=== PATIENT | female | born 1955 | race Caucasian/White ===

== ENCOUNTER 2016-11-18 10:52 | Emergency (ER) | payer MEDICARE ==
--- NOTE | 2016-11-18 11:03 | ER Document Report ---
ED Medical Screen (RME) - General Stated Complaint: DIARRHEA, VOMITING Mode of Arrival: Ambulatory Information source: Patient Notes: Patient presents to the ED with c/o n/v/d, RUQ abdominal pain for one week. 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 Daughter reports she called Dr. Wilson and he told her to come to the emergency department right away. Daughter is a medical researcher and reports she googled the symptoms. She believes patient is in liver failure. Patient does not have a history of liver failure. I have greeted and performed a rapid initial assessment of this patient. A comprehensive ED assessment and evaluation of the patient, analysis of test results and completion of the medical decision making process will be conducted by additional ED providers. TRAVEL OUTSIDE OF THE [place] IN LAST 30 DAYS: No - Related Data Allergies/Adverse Reactions: aspirin [Aspirin] Allergy (Unknown, Verified 03/30/14 12:36) Asthma Past Medical History - Past Medical History Cardiac Medical History: Denies: Hx Heart Attack, Hx Hypertension Pulmonary Medical History: Reports: Hx Asthma, Hx Bronchitis, Hx COPD, Hx Pneumonia Denies: Hx Tuberculosis Musculoskeltal Medical History: Reports Hx Arthritis Past Surgical History: Reports: Hx Cholecystectomy, Hx Hysterectomy, Hx Tonsillectomy - Immunizations Hx Diphtheria, Pertussis, Tetanus Vaccination: Yes Physical Exam - Vital signs Vitals: Temp Pulse Resp BP Pulse Ox 98.5 F 77 18 133/65 H 96 11/18/16 10:57 11/18/16 10:57 11/18/16 10:57 11/18/16 10:57 11/18/16 10:57 Course - Vital Signs Vital signs: Temp Pulse Resp BP Pulse Ox 98.5 F 77 18 133/65 H 96 11/18/16 10:57 11/18/16 10:57 11/18/16 10:57 11/18/16 10:57 11/18/16 10:57
[2016-11-18 11:28] LABS: ABSOLUTE BASOPHILS # (AUTO) 0.1 10^3/uL (0.0-0.2); ABSOLUTE EOSINOPHILS # (AUTO) 0.3 10^3/uL (0.0-0.6); ABSOLUTE LYMPHOCYTES (AUTO) 3.6 10^3/uL (0.5-4.7); ABSOLUTE MONOCYTES (AUTO) 0.9 10^3/uL (0.1-1.4); ABSOLUTE NEUT (AUTO) 9.5 10^3/uL (1.7-8.2); BASOPHILS % (AUTO) 0.6 % (0-2); EOSINOPHILS % (AUTO) 1.9 % (0-6); HEMATOCRIT 43.1 % (36.0-47.0); HEMOGLOBIN 14.2 g/dL (12.0-15.5); HGB HCT DIFFERENCE -0.5; MEAN CORPUSCULAR HEMOGLOBIN 30.1 pg (27.0-33.4); MEAN CORPUSCULAR VOLUME 91 fl (80-97); MONOCYTES % (AUTO) 6.2 % (3-13); RED BLOOD COUNT 4.72 10^6/uL (3.72-5.28); RED CELL DISTRIBUTION WIDTH 14.3 % (11.5-14.0); SEGMENTED NEUTROPHILS % (AUTO) 66.3 % (42-78); WHITE BLOOD COUNT 14.3 10^3/uL (4.0-10.5)
[2016-11-18 11:36] LABS: APPEARANCE,URINE CLEAR; BILIRUBIN,URINE NEGATIVE (NEGATIVE); GLUCOSE, URINE NEGATIVE (NEGATIVE); KETONES,URINE NEGATIVE (NEGATIVE); LEUKOCYTE ESTERASE,URINE NEGATIVE (NEGATIVE); NITRITE,URINE NEGATIVE (NEGATIVE); PROTEIN,URINE NEGATIVE (NEGATIVE); URINE SPECIFIC GRAVITY 1.003; UROBILINOGEN,URINE NEGATIVE mg/dL (<2.0)
[2016-11-18 11:42] LABS: ALANINE AMINOTRANSFERASE 17 U/L (9-52); ALBUMIN 4.2 g/dL (3.5-5.0); ALKALINE PHOSPHATASE 63 U/L (38-126); ANION GAP 13 (5-19); ASPARTATE AMINO TRANSFERASE 16 U/L (14-36); BILIRUBIN,DIRECT 0.3 mg/dL (0.0-0.4); BILIRUBIN,TOTAL 0.5 mg/dL (0.2-1.3); BLOOD UREA NITROGEN 9 mg/dL (7-20); CALCIUM 9.9 mg/dL (8.4-10.2); CARBON DIOXIDE 27 mmol/L (22-30); CHLORIDE 105 mmol/L (98-107); CREATININE RESULT 0.71 mg/dL (0.52-1.25); GLUCOSE 84 mg/dL (75-110); LIPASE 79.3 U/L (23-300); POTASSIUM 4.6 mmol/L (3.6-5.0); SODIUM 144.7 mmol/L (137-145); TOTAL PROTEIN 7.1 g/dL (6.3-8.2)
[2016-11-18] MEDS ORDERED: ONDANSETRON HCL INJ/PF 4 MG/2 ML SDV IV ONE ×2 (12:51→14:04)
[2016-11-18] MEDS ORDERED: NORMAL SALINE 1000 ML 1,000 ML IV ONE ×2 (12:51→13:46)
[2016-11-18] MEDS ORDERED: DICYCLOMINE HCL 20 MG TABLET PO ONE (14:04)
[2016-11-18] MEDS ORDERED: MORPHINE SULFATE 10 MG/ML INJ IV ONE (14:04)
--- NOTE | 2016-11-18 14:09 | ER Document Report ---
ED General - General Chief Complaint: Nausea/Vomiting/Diarrhea Stated Complaint: DIARRHEA, VOMITING Mode of Arrival: Ambulatory TRAVEL OUTSIDE OF THE [place] IN LAST 30 DAYS: No - HPI Patient complains to provider of: nausea vomiting diarrhea Notes: Patient coming in for a three-day history nausea vomiting diarrhea right lower quadrant abdominal pain. Patient states she has a history of having her gallbladder removed. Patient denies any fevers. Denies any recent antibiotics denies recent travel denies any recent camping states that she uses city water home no well water. No other sick contacts. - Related Data Allergies/Adverse Reactions: aspirin [Aspirin] Allergy (Unknown, Verified 11/18/16 11:01) Asthma Past Medical History - General Information source: Patient - Social History Smoking Status: Unknown if Ever Smoked Family History: Reviewed & Not Pertinent Patient has suicidal ideation: No Patient has homicidal ideation: No - Past Medical History Cardiac Medical History: Denies: Hx Heart Attack, Hx Hypertension Pulmonary Medical History: Reports: Hx Asthma, Hx Bronchitis, Hx COPD, Hx Pneumonia Denies: Hx Tuberculosis Renal/ Medical History: Denies: Hx Peritoneal Dialysis Musculoskeltal Medical History: Reports Hx Arthritis Past Surgical History: Reports: Hx Appendectomy, Hx Cholecystectomy, Hx Hysterectomy, Hx Tonsillectomy - Immunizations Hx Diphtheria, Pertussis, Tetanus Vaccination: Yes Hx Pneumococcal Vaccination: 11/25/11 Review of Systems - Review of Systems Constitutional: No symptoms reported EENT: No symptoms reported Cardiovascular: No symptoms reported Respiratory: No symptoms reported Gastrointestinal: Diarrhea, Nausea, Vomiting Genitourinary: No symptoms reported Female Genitourinary: No symptoms reported Musculoskeletal: No symptoms reported Skin: No symptoms reported Hematologic/Lymphatic: No symptoms reported Neurological/Psychological: No symptoms reported Physical Exam - Vital signs Vitals: Temp Pulse Resp BP Pulse Ox 98.5 F 77 18 133/65 H 96 11/18/16 10:57 11/18/16 10:57 11/18/16 10:57 11/18/16 10:57 11/18/16 10:57 Interpretation: Normal - General General appearance: Appears well, Alert - HEENT Head: Normocephalic, Atraumatic Eyes: Normal Pupils: PERRL - Respiratory Respiratory status: No respiratory distress Chest status: Nontender Breath sounds: Normal Chest palpation: Normal - Cardiovascular Rhythm: Regular Heart sounds: Normal auscultation Murmur: No - Abdominal Inspection: Normal Distension: No distension Bowel sounds: Normal Tenderness: Tender - Mild tenderness right lower quadrant no rebound no guarding patient does have a previous cholecystectomy scar. Organomegaly: No organomegaly - Back Back: Normal, Nontender - Extremities General upper extremity: Normal inspection, Nontender, Normal color, Normal ROM , Normal temperature General lower extremity: Normal inspection, Nontender, Normal color, Normal ROM , Normal temperature, Normal weight bearing. No: Gisele's sign - Neurological Neuro grossly intact: Yes Cognition: Normal Orientation: AAOx4 [place] Coma Scale Eye Opening: Spontaneous Yoel Coma Scale Verbal: Oriented [place] Coma Scale Motor: Obeys Commands Yoel Coma Scale Total: 15 Speech: Normal Motor strength normal: LUE, RUE, LLE, RLE Sensory: Normal - Psychological Associated symptoms: Normal affect, Normal mood - Skin Skin Temperature: Warm Skin Moisture: Dry Skin Color: Normal Course - Re-evaluation Re-evalutation: 11/19/16 10:33 Lab work did show leukocytosis our this looks to be chronic when comparing the previous laboratory values. Patient did undergo a CAT scan to evaluate for any signs of colitis diverticulitis. This was negative. Upon performing a CAT scan found patient only had one kidney and no appendix. I did ask the patient patient did confirm that she has a history of nephrectomy and appendectomy. Upon initial evaluation patient only admitted to a cholecystectomy. More likely patient has a viral gastroenteritis. Patient was unable to to provide us with a stool sample here. Patient will be given resources to provide a stool sample for outpatient testing patient was encouraged follow-up with her primary care physician anti-medics and Bentyl were given to the patient patient was discharged home - Vital Signs Vital signs: Temp Pulse Resp BP Pulse Ox 97.6 F 64 14 107/71 97 11/18/16 15:09 11/18/16 15:09 11/18/16 15:09 11/18/16 15:09 11/18/16 15:09 - Laboratory Result Diagrams: 11/18/16 11:15 11/18/16 11:15 Laboratory results interpreted by me: 11/18/16 11:15 WBC 14.3 H RDW 14.3 H Absolute Neutrophils 9.5 H Discharge - Discharge Clinical Impression: Nausea vomiting and diarrhea Condition: Good Disposition: HOME, SELF-CARE Instructions: Gastroenteritis (adult) ([facility]) Additional Instructions: Take medication as prescribed. Please return stool sample to outpatient laboratory testing and follow-up with your primary care physician for these results. Prescriptions: Dicyclomine HCl [Bentyl 20 mg Tablet] 20 mg PO QID #30 tablet Ondansetron [Zofran Odt 4 mg Tablet] 1 - 2 tab PO Q4H PRN #20 tab.rapdis PRN Reason: For Nausea/Vomiting Promethazine HCl [Phenergan 25 mg Tablet] 1 - 2 tab PO Q6H PRN #20 tablet PRN Reason: Forms: Follow-Up Outpatient Testing Referrals: RAMÓN ASHTON MD [Primary Care Provider] - Follow up in 3-5 days
[2016-11-18 15:20] VITALS: BP 107/71
== END 2016-11-18 15:09 | disposition home or self-care (01) ==
LOC: ER 10:52
DX: R11.2 Nausea with vomiting, unspecified (principal); R19.7 Diarrhea, unspecified; R10.31 Right lower quadrant pain; D72.829 Elevated white blood cell count, unspecified; J44.9 Chronic obstructive pulmonary disease, unspecified; Z90.710 Acquired absence of both cervix and uterus; Z88.6 Allergy status to analgesic agent; Z90.49 Acquired absence of other specified parts of digestive tract; Z90.5 Acquired absence of kidney
CPT/HCPCS: 96376; 99284; 96361; 96374; 96375; 36415; 83690; 85025; 80053; 81001; 74177; A9270; J2270; J2405; J7030; J3490

== ENCOUNTER 2019-11-19 21:08 | Emergency (ER) | payer MEDICARE, MEDICAID ==
[2019-11-19 21:15] VITALS: BP 140/93
--- NOTE | 2019-11-19 21:25 | ER Document Report ---
ED Medical Screen (RME) - General Chief Complaint: Foreign Body Stated Complaint: FOREIGN BODY STUCK IN THROAT Primary Care Provider: RAMÓN ASHTON MD [Primary Care Provider] - Follow up as needed Notes: Patient patient is a 64-year-old white female with a past medical history of COPD, CAD and anxiety who is a current everyday smoker who presents to the emergency department with a chief complaint of a fullness in the throat. She states about 4 days ago she was eating a meat ball when she feels like it became lodged in the throat. She states she tried to gargle with water, Pepsi and coffee without any improvement. She states over the past 4 days it feels as though this suspected foreign body is shifting positions in the throat. She states is really starting to bother her, causing a hoarse throat and now giving her a sensation of difficulty breathing. She states she has been unable to take her medicines for 4 days as she can only get liquids down and not solids. She called her doctor who advised that she come to the emergency department for further evaluation. She states today in relation to not being able to take her medicine she started to have some pain in the right arm. She was concerned given her history of CAD so she came for further evaluation. Denies any vomiting or pooling of secretions. No fevers, recent travel or known sick contacts. I have treated and performed a rapid initial assessment of this patient. A comprehensive ED assessment and evaluation of the patient, analysis of test results and completion of medical decision making process will be conducted by additional ED providers. PHYSICAL EXAMINATION: GENERAL: Well-appearing, well-nourished and in no acute distress. A&Ox4. Answers questions appropriately. TRAVEL OUTSIDE OF THE [place] IN LAST 30 DAYS: No - Related Data Allergies/Adverse Reactions: aspirin [Aspirin] Allergy (Unknown, Verified 11/18/16 11:01) Asthma Past Medical History - Past Medical History Cardiac Medical History: Denies: Hx Heart Attack, Hx Hypertension Pulmonary Medical History: Reports: Hx Asthma, Hx Bronchitis, Hx COPD, Hx Pneumonia Denies: Hx Tuberculosis Renal/ Medical History: Denies: Hx Peritoneal Dialysis Musculoskeltal Medical History: Reports Hx Arthritis Past Surgical History: Reports: Hx Appendectomy, Hx Cholecystectomy, Hx Hysterectomy, Hx Tonsillectomy - Immunizations Hx Diphtheria, Pertussis, Tetanus Vaccination: Yes Physical Exam - Vital signs Vitals: Temp Pulse Resp BP Pulse Ox 98.0 F 117 H 26 H 140/93 H 94 11/19/19 21:12 11/19/19 21:12 11/19/19 21:12 11/19/19 21:12 11/19/19 21:12 Course - Vital Signs Vital signs: Temp Pulse Resp BP Pulse Ox 98.0 F 117 H 26 H 140/93 H 94 11/19/19 21:12 11/19/19 21:12 11/19/19 21:12 11/19/19 21:12 11/19/19 21:12 Doctor's Discharge - Discharge Referrals: RAMÓN ASHTON MD [Primary Care Provider] - Follow up as needed
--- NOTE | 2019-11-19 21:56 | RADIOLOGY REPORT (SQ) ---
CLINICAL INDICATION: arm pain, neck fullness. TECHNIQUE: A single portable AP view was obtained of the chest at 2155 hours. COMPARISON: November 25, 2011. FINDINGS: The cardiomediastinal silhouette is normal. The lungs are grossly clear. No evidence of effusion or pneumothorax. Chronic parenchymal lung change. Old granulomatous disease. Scoliosis.. IMPRESSION: No evidence of active intrathoracic disease.
--- NOTE | 2019-11-19 21:59 | RADIOLOGY REPORT (SQ) ---
CLINICAL INDICATION: arm pain, neck fullness, ? food bolus. Sensation of retained foreign body. TECHNIQUE: 2 view(s) were obtained of the neck. COMPARISON: None. FINDINGS: No retained radiopaque foreign body within the soft tissues. Epiglottis appears grossly normal. No evidence of airway compromise. Surrounding soft tissues are unremarkable. IMPRESSION: Unremarkable imaging of the soft tissue neck.
[2019-11-19 22:08] LABS: INTERNATIONAL RATION (INR) 1.03; PROTHROMBIN TIME 13.6 SEC (11.4-15.4)
[2019-11-19 22:10] LABS: ABSOLUTE BASOPHILS # (AUTO) 0.1 10^3/uL (0.0-0.2); ABSOLUTE EOSINOPHILS # (AUTO) 0.1 10^3/uL (0.0-0.6); ABSOLUTE LYMPHOCYTES (AUTO) 3.6 10^3/uL (0.5-4.7); ABSOLUTE MONOCYTES (AUTO) 0.4 10^3/uL (0.1-1.4); BASOPHILS % (AUTO) 0.4 % (0-2); EOSINOPHILS % (AUTO) 0.5 % (0-6); HEMATOCRIT 46.9 % (36.0-47.0); HEMOGLOBIN 15.7 g/dL (12.0-15.5); LYMPHOCYTES % (AUTO) 29.9 % (13-45); MEAN CORPUSCULAR HEMOGLOBIN 30.1 pg (27.0-33.4); MEAN CORPUSCULAR HGB CONC 33.4 g/dL (32.0-36.0); MEAN CORPUSCULAR VOLUME 90 fl (80-97); MONOCYTES % (AUTO) 3.5 % (3-13); PLATELET COUNT 355 10^3/uL (150-450); RED CELL DISTRIBUTION WIDTH 14.5 % (11.5-14.0); SEGMENTED NEUTROPHILS % (AUTO) 65.7 % (42-78); TOTAL CELLS COUNTED % (AUTO) 100 %; WHITE BLOOD COUNT 12.2 10^3/uL (4.0-10.5)
[2019-11-19 22:23] LABS: ALBUMIN 4.6 g/dL (3.5-5.0); ALKALINE PHOSPHATASE 78 U/L (38-126); ANION GAP 12 (5-19); ASPARTATE AMINO TRANSFERASE 23 U/L (14-36); BILIRUBIN,TOTAL 0.8 mg/dL (0.2-1.3); BLOOD UREA NITROGEN 6 mg/dL (7-20); CALCIUM 9.9 mg/dL (8.4-10.2); CARBON DIOXIDE 22 mmol/L (22-30); CHLORIDE 104 mmol/L (98-107); GLUCOSE 112 mg/dL (75-110); POTASSIUM 3.9 mmol/L (3.6-5.0); TOTAL PROTEIN 7.4 g/dL (6.3-8.2)
--- NOTE | 2019-11-19 22:31 | ER Document Report ---
ED General - General Chief Complaint: Difficulty Swallowing Stated Complaint: FOREIGN BODY STUCK IN THROAT Time Seen by Provider: 11/19/19 22:20 Primary Care Provider: RAMÓN ASHTON MD [Primary Care Provider] - Follow up as needed Mode of Arrival: Ambulatory Information source: Patient Notes: 64-year-old female presented to ED for complaint of difficulty swallowing solids for the last 4 days. She states she has been able to drink fluids with no problems. She states she has been drinking Pepsi coffee and water and. She states she has been smoking 1-1/2 to 2 packs a day with no difficulty but she cannot swallow any solids since she ate meatballs 4 days ago. She states she called her doctor who advised her to come to the emergency room. She states due to the fact that she has some history of blood pressure and cholesterol she came into the emergency room to get evaluated. She denies any vomiting or any difficulty swallowing her secretions. She states she has not had any fevers cough or congestion except for the cough due to the something in her throat. When I first examined the patient her pulse was 98 with respirations of 20 no difficulty breathing no difficulty speaking. While she was in triage she had blood work EKG and chest x-ray completed. She also had a soft tissue neck x- ray. There was no acute findings on these test. These were all discussed with patient. Patient has equal filter pulp washer both arms has no palmar drift grossly negative neuro assessment. TRAVEL OUTSIDE OF THE [place] IN LAST 30 DAYS: No - HPI Onset: Other - 4 days ago Onset/Duration: Persistent - Discomfort due to not being able to swallow food she states she had some aching in her right arm no pain in her left arm left jaw or chest. Discomfort was in her throat and right arm Quality of pain: Achy - Right arm, Pressure - Throat Associated symptoms: Nonproductive cough Exacerbated by: Other Relieved by: Denies Similar symptoms previously: No Recently seen / treated by doctor: Yes - Related Data Allergies/Adverse Reactions: aspirin [Aspirin] Allergy (Unknown, Verified 11/18/16 11:01) Asthma Past Medical History - General Information source: Patient - Social History Smoking Status: Current Every Day Smoker Cigarette use (# per day): Yes - 1-1/2 to 2 packs/day Chew tobacco use (# tins/day): No Frequency of alcohol use: Rare Drug Abuse: None Lives with: Family Family History: Reviewed & Not Pertinent Patient has suicidal ideation: No Patient has homicidal ideation: No - Past Medical History Cardiac Medical History: Reports: Hx Hypercholesterolemia, Hx Hypertension Pulmonary Medical History: Reports: Hx Asthma, Hx Bronchitis, Hx COPD, Hx Pneumonia EENT Medical History: Reports: None Neurological Medical History: Reports: None Endocrine Medical History: Reports: None Renal/ Medical History: Reports: None GI Medical History: Reports: Hx Endoscopy Musculoskeletal Medical History: Reports Hx Arthritis - Rheumatoid arthritis, Reports Hx Musculoskeletal Deformity, Reports Hx Musculoskeletal Trauma Skin Medical History: Reports None Psychiatric Medical History: Reports: Hx Anxiety Traumatic Medical History: Reports: Hx Fractures - Right ankle right knee Infectious Medical History: Reports: None Past Surgical History: Reports: Hx Appendectomy, Hx Cholecystectomy, Hx Hysterectomy, Hx Orthopedic Surgery - Left knee replacement, Hx Tonsillectomy - Immunizations Hx Diphtheria, Pertussis, Tetanus Vaccination: Yes Hx Pneumococcal Vaccination: 11/25/11 Review of Systems - Review of Systems Constitutional: No symptoms reported EENT: Difficulty swallowing - Patient states she has difficulty swallowing solids is able to drink liquids with no trouble able to swallow her saliva was no trouble Cardiovascular: No symptoms reported Respiratory: Cough Gastrointestinal: No symptoms reported Genitourinary: No symptoms reported Female Genitourinary: No symptoms reported Musculoskeletal: No symptoms reported Skin: No symptoms reported Hematologic/Lymphatic: No symptoms reported Neurological/Psychological: No symptoms reported -: Yes All other systems reviewed and negative Physical Exam - Vital signs Vitals: Temp Pulse Resp BP Pulse Ox 98.0 F 117 H 26 H 140/93 H 94 11/19/19 21:12 11/19/19 21:12 11/19/19 21:12 11/19/19 21:12 11/19/19 21:12 Interpretation: Hypertensive. No: Tachycardic - 98, Tachypneic - 20 - General General appearance: Appears well, Alert - HEENT Head: Normocephalic, Atraumatic Eyes: Normal Pupils: PERRL - Respiratory Respiratory status: No respiratory distress Chest status: Nontender Breath sounds: Normal Chest palpation: Normal - Cardiovascular Rhythm: Regular Heart sounds: Normal auscultation Murmur: No - Abdominal Inspection: Normal Distension: No distension Bowel sounds: Normal Tenderness: Nontender Organomegaly: No organomegaly - Back Back: Normal, Nontender - Extremities General upper extremity: Normal inspection, Nontender, Normal color, Normal ROM, Normal temperature General lower extremity: Normal inspection, Nontender, Normal color, Normal ROM, Normal temperature, Normal weight bearing. No: Gisele's sign - Neurological Neuro grossly intact: Yes Cognition: Normal Orientation: AAOx4 [place] Coma Scale Eye Opening: Spontaneous [place] Coma Scale Verbal: Oriented Yoel Coma Scale Motor: Obeys Commands Yoel Coma Scale Total: 15 Speech: Normal Motor strength normal: LUE, RUE, LLE, RLE Sensory: Normal - Psychological Associated symptoms: Normal affect, Normal mood - Skin Skin Temperature: Warm Skin Moisture: Dry Skin Color: Normal Course - Re-evaluation Re-evalutation: 11/20/19 00:19 Discharge instructions because she was her difficulty swallowing if she was not go stay tonight she was not go to get vital signs that she was wait instructions and she got up better left the room. - Vital Signs Vital signs: Temp Pulse Resp BP Pulse Ox 98.0 F 98 20 140/93 H 94 11/19/19 21:12 11/19/19 22:20 11/19/19 22:20 11/19/19 21:12 11/19/19 21:12 - Laboratory Result Diagrams: 11/19/19 21:53 11/19/19 21:53 Laboratory results interpreted by me: 11/19/19 11/19/19 21:53 21:53 WBC 12.2 H Hgb 15.7 H RDW 14.5 H BUN 6 L Glucose 112 H - Diagnostic Test Radiology reviewed: Image reviewed, Reports reviewed Discharge - Discharge Clinical Impression: Difficulty swallowing solids Condition: Stable Disposition: HOME, SELF-CARE Additional Instructions: You were seen today for difficulty swallowing solids. You state you have been having difficulty swallowing solids for the last 4 days. You state you have been able to drink liquids with no difficulty. Your chest x-ray lab work and soft tissue neck x-ray are all negative for any acute process. I have given you a copy of your chest x-ray, soft tissue neck x-ray and lab results. Please take these with you to your primary care doctor. Please follow-up with your primary doctor and get a referral to a dye stand loader in the next 24 to 48 hours. FOLLOW-UP CARE: If you have been referred to a physician for follow-up care, call the physicians office for an appointment as you were instructed or within the next two days. If you experience worsening or a significant change in your symptoms, notify the physician immediately or return to the Emergency Department at any time for re-evaluation. Referrals: RAMÓN ASHTON MD [Primary Care Provider] - Follow up as needed
--- NOTE | 2019-11-20 11:22 | EKG REPORT ---
SEVERITY:- ABNORMAL ECG - SINUS TACHYCARDIA CONSIDER RIGHT VENTRICULAR HYPERTROPHY BORDERLINE INFERIOR Q WAVES NONSPECIFIC T ABNORMALITIES, LATERAL LEADS : Confirmed by: Rick Sequeira MD 20-Nov-2019 11:21:52
== END 2019-11-19 23:09 | disposition home or self-care (01) ==
LOC: ER 21:08
DX: R13.10 Dysphagia, unspecified (principal); R05 Cough; M79.601 Pain in right arm; I10 Essential (primary) hypertension; J44.9 Chronic obstructive pulmonary disease, unspecified; F17.210 Nicotine dependence, cigarettes, uncomplicated; Z88.8 Allergy status to other drugs, medicaments and biological substances
CPT/HCPCS: 36415; 70360; 71045; 80053; 84484; 85025; 85610; 85730; 93005; 93010; 99284

== ENCOUNTER 2019-11-22 03:09 | Emergency (ER) | payer MEDICARE, MEDICAID ==
[2019-11-22 03:15] VITALS: BP 113/80
--- NOTE | 2019-11-22 03:44 | ER Document Report ---
HPI - HPI Time Seen by Provider: 11/22/19 03:25 Pain Level: 2 Context: Patient is a 64-year-old female that comes to the emergency department for chief complaint of accidental ingestion. She states that she was coughing into a tissue paper and when she stopped and after the coughing a piece of tissue paper went down the back of her throat. She states she feels like she swallowed it, she denies difficulty breathing, she states that she coughed and gagged and felt like it came back out and is sitting in the back of her throat. She denies any discomfort other than a foreign body sensation. She denies any other symptoms or any other complaints. Patient states she was seen here 4 days ago after she got a meatball stuck in her esophagus and she did manage to cough/gag was out earlier in the day. She states she was doing fine until the reported incident afterwards. - CONSTITUTIONAL Constitutional: DENIES: Fever, Chills - EENT EENT: DENIES: Sore Throat, Ear Pain, Eye problems - NEURO Neurology: DENIES: Headache, Weakness, Vision blurred, Dizzinesss / Vertigo - CARDIOVASCULAR Cardiovascular: DENIES: Chest pain - RESPIRATORY Respiratory: DENIES: Trouble Breathing, Coughing - GASTROINTESTINAL Gastrointestinal: DENIES: Abdominal Pain, Black / Bloody Stools - URINARY Urinary: DENIES: Dysuria, Urgency, Frequency - REPRODUCTIVE Reproductive: DENIES: : - MUSCULOSKELETAL Musculoskeletal: DENIES: Extremity pain Past Medical History - General Information source: Patient - Social History Smoking Status: Former Smoker Frequency of alcohol use: None Drug Abuse: None Lives with: Family Family History: Reviewed & Not Pertinent Patient has suicidal ideation: No Patient has homicidal ideation: No - Past Medical History Cardiac Medical History: Reports: Hx Hypercholesterolemia, Hx Hypertension Denies: Hx Heart Attack Pulmonary Medical History: Reports: Hx Asthma, Hx Bronchitis, Hx COPD, Hx Pneumonia Denies: Hx Tuberculosis Renal/ Medical History: Denies: Hx Peritoneal Dialysis GI Medical History: Reports: Hx Endoscopy Musculoskeletal Medical History: Reports Hx Arthritis - Rheumatoid arthritis, R eports Hx Musculoskeletal Deformity, Reports Hx Musculoskeletal Trauma Psychiatric Medical History: Reports: Hx Anxiety Traumatic Medical History: Reports: Hx Fractures - Right ankle right knee Past Surgical History: Reports: Hx Appendectomy, Hx Cholecystectomy, Hx Hysterectomy, Hx Orthopedic Surgery - Left knee replacement, Hx Tonsillectomy - Immunizations Hx Diphtheria, Pertussis, Tetanus Vaccination: Yes Hx Pneumococcal Vaccination: 11/25/11 Vertical Provider Document - CONSTITUTIONAL General Appearance: WD/WN, No Apparent Distress - Patient speaks slightly anxiously but she does not appear to be in distress - INFECTION CONTROL TRAVEL OUTSIDE OF THE [place] IN LAST 30 DAYS: No - HEENT HEENT: Atraumatic, Normal ENT Exam - Patient has a mallampati score of one, easily viewed posterior pharynx, so clear I can even see the epiglottis. This is clear without any abrasion, bleeding, or abnormality. Poor dentition, otherwise unremarkable ENT exam, Normocephalic - NECK Neck: Normal Inspection - Soft, nontender, supple, no noted swelling - RESPIRATORY Respiratory: Breath Sounds Normal, No Respiratory Distress - Clear lungs, speaks in full sentences, no signs of distress - CARDIOVASCULAR Cardiovascular: Regular Rate, Regular Rhythm - GI/ABDOMEN Gastrointestinal: Abdomen Soft, Abdomen Non-Tender - BACK Back: Normal Inspection - MUSCULOSKELETAL/EXTREMETIES Musculoskeletal/Extremeties: MAEW, FROM, Non-Tender - NEURO Level of Consciousness: Awake, Alert, Appropriate Motor/Sensory: No Motor Deficit, No Sensory Deficit - DERM Integumentary: Warm, Dry, No Rash Course - Re-evaluation Re-evalutation: Patient initially anxious, however after evaluation and discussion she did calm down. Patient has no respiratory symptoms, patient is able to swallow without difficulty including consuming food, she was reassured that this would likely either dissolve or essentially be like fiber. I did discuss concerning symptoms to look out for in case she aspirated this but I do not think she did based on her reported history and her symptoms. She was provided with viscous lidocaine after discussion. Because of her frequent intolerance to solid foods I highly recommended she have a close follow-up endoscopy, she states that she will call her primary care tomorrow to have this set up. Patient stable, asymptomatic, well-appearing at time of discharge. - Vital Signs Vital signs: Temp Pulse Resp BP Pulse Ox 98.0 F 78 20 113/80 95 11/22/19 03:14 11/22/19 03:14 11/22/19 03:14 11/22/19 03:14 11/22/19 03:14 Discharge - Discharge Clinical Impression: Swallowed foreign body Qualifiers: Encounter type: initial encounter Qualified Code(s): T18.9XXA - Foreign body of alimentary tract, part unspecified, initial encounter Condition: Stable Disposition: HOME, SELF-CARE Additional Instructions: The ingested foreign body should dissolve. There are rare cases where this will not and this should simply act as fiber and you should eventually pass this in your bowel movements. You can use a lidocaine if needed for discomfort. Because of your intermittent difficulty swallowing solids I highly recommend that you contact your provider on Saturday and follow-up closely for an endoscopy to be performed. Return for any concerning symptoms including developing fever, difficulty breathing, productive cough, or any other concerning or worsening symptoms. Prescriptions: Lidocaine HCl [Xylocaine 2% Viscous Soln 15 ml Udcup] 15 ml PO TID PRN #1 [id number] PRN Reason: Referrals: RAMÓN ASHTON MD [Primary Care Provider] - 11/23/19
[2019-11-22] MEDS ORDERED: LIDOCAINE 2% VISCOUS SOLN 15 ML UDCUP PO ONE (03:46)
== END 2019-11-22 05:38 | disposition home or self-care (01) ==
LOC: ER 03:09
DX: T18.9XXA Foreign body of alimentary tract, part unspecified, initial encounter (principal); X58.XXXA Exposure to other specified factors, initial encounter; I10 Essential (primary) hypertension; J44.9 Chronic obstructive pulmonary disease, unspecified
CPT/HCPCS: 99283

== ENCOUNTER → 2019-11-24 | Outpatient (CLI) | payer MEDICAID, MEDICARE ==
--- NOTE | 2019-11-24 13:16 | RADIOLOGY REPORT (SQ) ---
EXAM DESCRIPTION: BARIUM SWALLOW ESOPHAGUS IMAGES COMPLETED DATE/TIME: 11/24/2019 12:22 pm REASON FOR STUDY: R13.10 DYSPHAGIA T18.108A UNSP FOREIGN BODY IN ESOPHAGUS CAUSING OTH INJURY T18.10 8A UNSP FOREIGN BODY IN ESOPHAGUS CAUSING OTH INJURY, COMPARISON: Soft tissue neck x-ray 11/19/2019 TECHNIQUE: Under fluoroscopic guidance, patient ingested effervescent granules followed by thick and thin barium. Fluoroscopic spot images and routine radiographic images acquired and stored on PACS. 12 MM BARIUM TABLET GIVEN: Yes. Slight delay in passage of the tablet at the GE junction LIMITATIONS: None. FLUOROSCOPY TIME: FLUORO TIME: 3.2 minutes of fluoroscopy was used. 10 images saved to PACS. FINDINGS: NEUROMUSCULAR COORDINATION OF SWALLOW: Normal. No aspiration. Mild cricopharyngeal hypert rophy. ESOPHAGEAL MOTILITY: Slow and weak primary peristalsis. No esophageal spasm. ESOPHAGEAL MUCOSA: Normal mucosa without masses or ulceration. GASTRO-ESOPHAGEAL JUNCTION: No hiatal hernia. Mild gastroesophageal reflux. There was a 1 minutes d elay in passage of the 12 mm barium tablet at the GE junction. No stricture seen. NON-GI TRACT STRUCTURES: No significant finding. OTHER: No other significant finding. IMPRESSION: 1. ESOPHAGEAL DYSMOTILITY. 2. MILD GASTROESOPHAGEAL REFLUX WITH SLIGHT DELAY IN PASSAGE OF A 12 MM BARIUM TABLET AT THE GE JUNC TION. NO STRICTURES IDENTIFIED. COMMENT: Quality ID [id number]: Final reports for procedures using fluoroscopy that document radiation exp osure indices, or exposure time and number of fluorographic images (if radiation exposure indices are not available) TECHNICAL DOCUMENTATION: JOB ID: [id number] 2010 [employer]- All Rights Reserved Reading location - IP/workstation name: [email or web address] [id number]
== END ==
LOC: RAD 11:58
PROVIDERS: ATTEND Internal Medicine Gastroenterology
DX: T18.108A Unspecified foreign body in esophagus causing other injury, initial encounter (principal); R13.10 Dysphagia, unspecified
CPT/HCPCS: 74220

== ENCOUNTER 2020-05-31 06:14 | Day surgery (SDC) | payer MEDICARE, MEDICAID ==
[~2020-05-31 06:14] MED LIST: ACETAMINOPHEN 325 MG TABLET ONE; ACETAMINOPHEN 325 MG TABLET PO PRN; IBUPROFEN 800 MG in NORMAL SALINE 250 ML IV PRN
[2020-05-31] MEDS ORDERED: MIDAZOLAM 2 MG/2 ML INJ ONE (07:05)
[2020-05-31] MEDS ORDERED: DEXAMETHASONE SOD PHOSPHATE INJ 4 MG/1 ML VIAL ONE (07:05)
[2020-05-31] MEDS ORDERED: LIDOCAINE 2% INJ-PF (20 MG/ML) 10 ML AMPUL ONE (07:05)
[2020-05-31] MEDS ORDERED: ONDANSETRON HCL INJ/PF 4 MG/2 ML SDV ONE (07:05)
[2020-05-31] MEDS ORDERED: HYDROMORPHONE HCL INJ/PF 2 MG/ML AMPULE ONE (07:05)
[2020-05-31] MEDS ORDERED: FENTANYL CITRATE INJ/PF 100 MCG/2 ML AMPUL ONE (07:05)
[2020-05-31] MEDS ORDERED: PROPOFOL INJ 200 MG/20 ML VIAL IV ONE (07:05)
[2020-05-31] MEDS ORDERED: CEFAZOLIN 2 GM/D5W RTU 2 GM/50 ML RTUPB IV ONE (07:19)
[2020-05-31 07:20] LABS: HEMATOCRIT 41.8 % (36.0-47.0); HEMOGLOBIN 14.6 g/dL (12.0-15.5); MEAN CORPUSCULAR HEMOGLOBIN 32.9 pg (27.0-33.4); MEAN CORPUSCULAR HGB CONC 34.9 g/dL (32.0-36.0); MEAN CORPUSCULAR VOLUME 94 fl (80-97); RED BLOOD COUNT 4.44 10^6/uL (3.72-5.28); RED CELL DISTRIBUTION WIDTH 15.3 % (11.5-14.0); WHITE BLOOD COUNT 9.6 10^3/uL (4.0-10.5)
--- NOTE | 2020-05-31 07:26 | RADIOLOGY REPORT (SQ) ---
CHEST X-RAY 1 VIEW on 05/31/2020 at 6:54 AM CLINICAL INDICATION: Cough COMPARISON: 11/19/2019 FINDINGS: Mildly tortuous aorta is noted. There is evidence of calcified granulomatous disease in the chest. The lungs are otherwise clear. Heart is within normal limits for size. Pulmonary vascularity is within normal limits. IMPRESSION: No significant change and no acute disease.
[2020-05-31 07:28] LABS: ANION GAP 10 (5-19); BLOOD UREA NITROGEN 10 mg/dL (7-20); CALCIUM 9.5 mg/dL (8.4-10.2); CARBON DIOXIDE 25 mmol/L (22-30); CHLORIDE 108 mmol/L (98-107); GLUCOSE 113 mg/dL (75-110); POTASSIUM 4.2 mmol/L (3.6-5.0)
[2020-05-31] MEDS ORDERED: BUPIVACAINE HCL 0.25 % INJ/PF (2.5 MG/1 ML) 30 ML VIAL ONE (07:38)
[2020-05-31 07:39] LABS: ABSOLUTE LYMPHOCYTES# (MANUAL) 3.1 10^3/uL (0.5-4.7); ABSOLUTE MONOCYTES # (MANUAL) 0.8 10^3/uL (0.1-1.4); BASOPHILS % (MANUAL) 1 % (0-2); EOSINOPHILS % (MANUAL) 1 % (0-6); LYMPHOCYTES % (MANUAL) 26 % (13-45); MONOCYTES % (MANUAL) 8 % (3-13); SEGMENTED NEUTROPHILS % (MAN) 58 % (42-78); TOTAL CELLS COUNTED 100
[2020-05-31 07:40] LABS: ANISOCYTOSIS SLIGHT
[2020-05-31 07:41] LABS: OVALOCYTES SLIGHT; PLATELET CLUMPS PRESENT; PLATELET COMMENT ADEQUATE; POIKILOCYTOSIS SLIGHT; POLYCHROMASIA SLIGHT
[2020-05-31 07:42] LABS: PLATELET COUNT 335 10^3/uL (150-450)
[2020-05-31] MEDS ORDERED: CEFAZOLIN 2 GM/D5W RTU 2 GM/50 ML RTUPB IV PRN (07:44)
[2020-05-31] MEDS ORDERED: RINGERS SOLUTION,LACTATED 1,000 ML IV PRN (07:46)
[2020-05-31] MEDS ORDERED: LIDOCAINE 0.5% INJ-PF (5 MG/ML) 50 ML SDV SUBCUT PRN (07:46)
[2020-05-31] MEDS ORDERED: MEPERIDINE HCL/PF INJ 25 MG/1 ML DISP.SYRIN IV PRN (08:15)
[2020-05-31] MEDS ORDERED: FENTANYL CITRATE INJ/PF 100 MCG/2 ML AMPUL IV PRN ×3 (08:15)
[2020-05-31] MEDS ORDERED: OXYCODONE-ACETAMINOPHEN 5-325 MG TABLET PO PRN ×2 (08:15)
[2020-05-31] MEDS ORDERED: DIPHENHYDRAMINE HCL 50 MG/ML VIAL IV PRN (08:15)
[2020-05-31] MEDS ORDERED: MORPHINE SULFATE 10 MG/ML INJ IV PRN (08:15)
[2020-05-31] MEDS ORDERED: PROMETHAZINE HCL INJ 25 MG/1 ML VIAL IV PRN ×2 (08:15)
[2020-05-31] MEDS ORDERED: OXYCODONE HCL IR 5 MG TABLET PO PRN (08:33)
--- NOTE | 2020-05-31 08:33 | Discharge Summary ---
Discharge Summary (SDC) - Discharge Final Diagnosis: Suspicious lymphadenopathy Date of Surgery: 05/31/20 Discharge Date: 05/31/20 Condition: Stable Treatment or Instructions: Discharge home. Diet as tolerated. Activity: Nonstrenuous. Follow-up with [facility] in 7 to 10 days. Okay to shower starting on . Resume regular home medications, including home oxycodone dose. Referrals: RAMÓN ASHTON MD [Primary Care Provider] - Discharge Diet: As Tolerated Respiratory Treatments at Home: Deep Breathing/Coughing, Incentive Spirometer Discharge Activity: Balance Activity w/Rest Home Care Assistance: None Needed Report the Following to Your Physician Immediately: Shortness of Breath, Nausea, Vomiting, Fever over 101 Degrees, Unusual Bleeding, Redness
--- NOTE | 2020-05-31 08:37 | Operative Report ---
Nonrecallable Operative Report DATE OF SURGERY: 05/31/20 PREOPERATIVE DIAGNOSIS: Suspicious lymphadenopathy POSTOPERATIVE DIAGNOSIS: Same as above OPERATION: Excisional biopsy of deep left axillary lymph node SURGEON: QAMAR MANTILLA 1ST GASKET SUPERVISOR: RHONDA DAWSON ANESTHESIA: Other - LMA TISSUE REMOVED OR ALTERED: Suspicious left axillary lymph node COMPLICATIONS: None apparent ESTIMATED BLOOD LOSS: Minimal PROCEDURE: Drains/implants: None. Procedure in detail: After informed consent was obtained, the patient was brought to the operating room and laid in the supine position. The area of the left axilla was prepped and draped in a normal sterile fashion. A 3 cm incision was created over the palpable abnormality, within the left axilla. Dissection was carried down through the subcutaneous tissues, into the deep axillary fat. This was done using blunt dissection. The abnormal/suspicious lymph node was easily identified. It was approximately 2-1/2 to 3 cm in diameter. The lymph node was freed from the surrounding tissues. The pedicle was ligated using hemoclips. The lymph node was then removed from the pedicle, passed off the field, and sent to pathology. The subcutaneous tissues were closed using 3-0 Vicryl suture in simple running fashion. The overlying skin was closed using 4- 0 Vicryl Rapide suture in subcuticular fashion. A dressing was placed, and the procedure was concluded. All sponge, instrument, needle counts were correct x2. Condition: Stable. Rhonda Dawson PA-C was scrubbed and present the entirety of the procedure. She assisted with all portions of the procedure including opening of the skin, retraction of the tissues, removal of the lymph node, closure of the subcutaneous tissues, and closure of the skin.
[2020-05-31 13:40] VITALS: BP 113/52
--- NOTE | 2020-05-31 17:37 | EKG REPORT ---
SEVERITY:- BORDERLINE ECG - SINUS RHYTHM BORDERLINE T ABNORMALITIES, ANTERIOR LEADS : Confirmed by: Cherelle Whyte MD 31-May-2020 17:36:22
== END 2020-05-31 10:14 | disposition home or self-care (01) ==
LOC: OROUT 06:14
PROVIDERS: ATTEND Surgery
DX: R59.1 Generalized enlarged lymph nodes (principal); M06.9 Rheumatoid arthritis, unspecified; M81.0 Age-related osteoporosis without current pathological fracture; F41.9 Anxiety disorder, unspecified; I10 Essential (primary) hypertension; I25.118 Atherosclerotic heart disease of native coronary artery with other forms of angina pectoris; Z79.899 Other long term (current) drug therapy; F17.210 Nicotine dependence, cigarettes, uncomplicated; Z03.818 Encounter for observation for suspected exposure to other biological agents ruled out; Z90.5 Acquired absence of kidney
CPT/HCPCS: 36415; 88185 ×15; 88184; 85025; 80048; 88233; 88262; 88305 ×2; 71045; 93005; 93010; 01610; 38525; U0003; A9270; J2250; J1100; J3010; J2405; J7050; J2704; J3490; J0690; J1741; C9803; 1610; 87635; J1170

== ENCOUNTER → 2020-06-28 | Outpatient (CLI) | payer MEDICAID, MEDICARE ==
--- NOTE | 2020-07-01 15:54 | RADIOLOGY REPORT (SQ) ---
EXAM DESCRIPTION: PET CT SKULL/THIGH IMAGES COMPLETED DATE/TIME: 06/28/2020 1:13 pm REASON FOR STUDY: C83.08 SMALL CELL B-CELL LYMPHOMA, LYMPH NODES OF MULTIPLE SITES C83.08 SMALL VIANCA L B-CELL LYMPHOMA, LYMPH NODES OF MULTIPLE S COMPARISON: CT chest dated 04/01/2020, CT abdomen dated 11/18/2016 RADIONUCLIDE AND DOSE: 10.6 mCi F18 FDG The route of agent administration: Intravenous FASTING BLOOD SUGAR: 96 mg/dl CONTRAST TYPE AND DOSE: No CT contrast given. TECHNIQUE: Blood glucose level was verified. Above dose of FDG was injected intravenously. 2-D seg mented attenuation correction images were obtained from the base of the skull to the midthighs. Nonc ontrast CT images were obtained for attenuation correction and fusion with emission images. CT image s were performed without oral or intravenous contrast and are not sensitive for parenchymal lesions. A series of overlapping emission PET images were obtained. Images reviewed and manipulated at [facility] work station by the radiologist. Images stored on PACS. LIMITATIONS: None. FINDINGS: HEAD AND NECK: Areas of abnormal uptake in the neck in the region of the thyroid gland. O n CT images this however appears to represent extra thyroidal tissue most likely small nodes. SUV in these areas range from 4.6 to 7.2. Mild uptake in the gland itself which is nonspecific. CHEST: Bilateral axillary adenopathy. Nodes in the left arm metabolically active with SUVs ranging b etween 3.6 and 4. Nodes on the right show minimal uptake. ABDOMEN AND PELVIS: No areas of abnormal metabolic activity in the abdomen or pelvis. Expected physi ologic activity is present in the genitourinary system and bowel. PROXIMAL LOWER EXTREMITIES: No areas of abnormal metabolic activity in the soft tissues of the lower extremities. BONES: Uptake in the left acromioclavicular joint most likely degenerative. No focal lytic or sclero tic lesions identified on CT images. ADDITIONAL CT FINDINGS: Bulky abdominal adenopathy demonstrating no abnormal metabolic activity. OTHER: No other significant findings. IMPRESSION: Abnormal uptake in the neck and in the left axilla as described. Findings are suspiciou s for neoplasm. There is bulky abdominal adenopathy but no abnormal metabolic activity. TECHNICAL DOCUMENTATION: JOB ID: [id number] 2010 [employer]- All Rights Reserved Reading location - IP[facility]workstation name: [email or web address]
== END ==
LOC: RAD 09:20
PROVIDERS: ATTEND Internal Medicine
DX: C83.08 Small cell B-cell lymphoma, lymph nodes of multiple sites (principal)
CPT/HCPCS: 78815; A9552

== ENCOUNTER → 2020-06-28 | Outpatient (CLI) | payer MEDICARE, OTHER ==
[~2020-06-28] MED LIST changes: -ACETAMINOPHEN 325 MG TABLET ONE; +CEFAZOLIN 2 GM/D5W RTU 2 GM/50 ML RTUPB IV PRN
== END ==
LOC: OD 08:10 → EDSTATUS 07-01 12:30
PROVIDERS: ATTEND Surgery
DX: Z03.818 Encounter for observation for suspected exposure to other biological agents ruled out (principal)
CPT/HCPCS: U0003; C9803; 87635; J1741; J7050

== ENCOUNTER 2020-07-06 08:17 | Outpatient (CLI) | payer MEDICARE, MEDICAID ==
[~2020-07-06 08:17] MED LIST changes: -CEFAZOLIN 2 GM/D5W RTU 2 GM/50 ML RTUPB IV PRN; +DIPHENHYDRAMINE 50 MG/ML VIAL IV PRN; -IBUPROFEN 800 MG in NORMAL SALINE 250 ML IV PRN; +NORMAL SALINE 250 ML @ KVO IV PRN; +NORMAL SALINE IV PRN; +RITUXIMAB IV PRN
[2020-07-06 08:36] VITALS: BP 115/61
--- OUTSIDE RECORDS SUMMARY | 2020-07-07 18:03 | XMS REPORT ---
:1955 [facility] [address] [place] [address] Care Team Providers Name Role Phone Delfina Primary Care Physician Unavailable Yessenia Parish Attending Clinician Unavailable Froy LOPES Attending Clinician Unavailable MD Carl Oleary Attending Clinician Unavailable Padilla LOPES Attending Clinician Unavailable Delfina Attending Clinician Unavailable MD Billie Perez Attending Clinician Unavailable MD Billie Perez Attending Clinician Unavailable MD Dontrell Goff Attending Clinician Unavailable MD Dontrell Goff Attending Clinician Unavailable MD Carl Oleary Admitting Clinician Unavailable MD Billie Perez Admitting Clinician Unavailable MD Dontrell Goff Admitting Clinician Unavailable Allergies, Adverse Reactions, Alerts Allergy Allergy Status Severity Reaction(s) Onset Inactive Treating C omments Name Type Date Date Clinician ASPIRIN Drug Active Unknown Asthma 2019-06 allergy 18 00:00:0 0 Aspirin Aspirin Active TABS TABS Aspirin Allergy Active (Ingredient to Drug (s): (Finding) aluminum aspirin) Adhesive Allergy Active Tape to Drug (Finding) Medications Ordered Filled Start Stop Current Ordering Indication Dosage Frequency Signature Comments Components Medication Medication Date Date Medication? Clinician (SIG) Name Name DiphenhydrA 2019-08 Yes 50mg MINE HCl 09-05 00:00: 00 Rituximab 2019-08 Yes 675mg 09-05 00:00: 00 Sodium 2019-08 Yes 250mL Chloride 09-05 00:00: 00 Tylenol 2019-08 Yes 09-05 00:00: 00 DiphenhydrA 2019-08 No MINE HCl - 00:00: 00 Rituximab 2019-08 No 1- 00:00: 00 Sodium 2019-08 No Chloride -06 00:00: 00 predniSONE 2019- Yes Cayden predniSONE 5 MG Oral 0-28 Goff 5 MG Oral Tablet 00:00: D.O. Tablet 00 TAKE 1 TABLET DIRECTED. Quantity: 90 Refills: 0 Goff D.O., Cayden Start : 0Active Imbruvica 2020-1 2020- No 1 0-27 11-10 00:00: 14:52 00 :34 Metoprolol 2019-0 Yes Metoprolol Tartrate 25 9-30 Tartrate MG Oral 00:00: 25 MG Oral Tablet 00 Tablet TAKE 1/2 TABLET BY MOUTH AT NIGHT. Refills: 0 Start : 0Active Phentermine 2019-0 Yes 1 QD Phentermin HCl - 37.5 8-25 e HCl - MG Oral 00:00: 37.5 MG Capsule 00 Oral Capsule TAKE 1 CAPSULE DAILY Refills: 0 Start : 0Active Metoprolol No Jabier .5 Q0.5D Metoprolol Tartrate 25 4-30 Padilla Tartrate MG Oral 00:00: 25 MG Oral Tablet 00 Tablet TAKE 0.5 TABLET TWICE DAILY Quantity: 90 Refills: 3 Jabier Causey MD Start : 0Active Orencia 250 No Cayden Orencia MG 8-13 Goff 250 MG Intravenous 00:00: D.O. Intravenou Solution 00 s Solution Reconstitut Reconstitu ed tasha INFUSE 750MG INTRAVENOU SLY WEEK 0, WEEK 2, WEEK 4, THEN EVERY 4 WEEKS Quantity: 9 Refills: 3 Cayden Goff D.O. Start : 9Active Calcium 600 0 No Cayden 1 QD Calcium 1500 (600 6-25 Goff 600 1500 Ca) MG Oral 00:00: D.O. (600 Ca) Tablet 00 MG Oral Tablet TAKE 1 TABLET DAILY. Quantity: 90 Refills: 3 Cayden Goff D.O. Start : 9Active Calcium 600 Yes Cayden 1 QD Calcium 1500 (600 6-25 Goff 600 1500 Ca) MG Oral 00:00: D.O. (600 Ca) Tablet 00 MG Oral Tablet TAKE 1 TABLET DAILY. Quantity: 90 Refills: 3 aCyden Goff D.O. Start : 9Active Atorvastati No Jabier Atorvastat n Calcium 1-29 Padilla in Calcium 40 MG Oral 00:00: 40 MG Oral Tablet 00 Tablet Take 1 tablet at bedtime Quantity: 90 Refills: 3 Jabier Causey MD Start : 8Active Nitroglycer Yes Cayden Nitroglyce in 0.3 MG -31 [place] rin 0.3 MG Sublingual 00:00: D.O. Sublingual Tablet 00 Tablet Sublingual Sublingual TAKE DIRECTED. Quantity: 15 Refills: 0 Cayden Goff D.O. Start : 7Active oxyCODONE Yes oxyCODONE HCl - 20 MG 7-13 HCl - 20 Oral Tablet 00:00: MG Oral 00 Tablet Refills: 0 Start : 6Active Xanax 0.5 Yes 1 Q0.3333D Xanax 0.5 MG Oral 7-13 MG Oral Tablet 00:00: Tablet 00 TAKE 1 TABLET 3 TIMES DAILY PRN Quantity: 90 Refills: 0 Start : 6Active Methotrexat No Cayden Methotrexa e 2.5 MG 7- Goff te 2.5 MG Oral Tablet 00:00: D.O. Oral 00 Tablet TAKE 8 TABLETS WEEKLY. Quantity: 48 Refills: 3 Cayden Goff D.O. Start : 6Active Folic Acid Yes Cayden QD Folic Acid 1 MG Oral 7-13 Goff 1 MG Oral Tablet 00:00: D.O. Tablet 00 TAKE 1 TABLET DAILY DIRECTED. Quantity: 90 Refills: 2 Cayden Goff D.O. Start : 6Active Valium 2016- No 1 01-03 00:00: 00:00 00 :00 Cyanocobala 2015- No 1000mg Cyanocobal min 01-03 perera 00:00: 00:00 00 :00 Folic Acid Yes 1 Methotrexat No 8 e Sodium Metoprolol Yes 1 Tartrate Nitrostat Yes 1 Orencia No 250mg fentaNYL Yes 1 Chiara No 1 Allergy ALPRAZolam Yes 1 Humira No Lisinopril No 1 OxyCODONE Yes 1 HCl Phenazopyri No 1 dine HCl Methotrexat 2019- No 8 e Sodium 07-05 14:52 :26 Orencia 2020- No 250mg 07-05 14:51 :57 Chiara 2019- No 1 Allergy 06-21 10:51 :54 Humira 2020- No 06-21 10:51 :59 Lisinopril 2019- No 06-21 10:51 :35 OxyCONTIN 2019- No 06-21 10:51 :07 Phenazopyri dine HCl 06-21 10:52 :06 Cipro 2015- No 12-14 13:20 :18 Methotrexat 2015- No 1 e 12-14 13:20 :06 Percocet 2015- No 12-14 13:20 :46 Problems Condition Condition Condition Status Onset Resolution Last Treatin g Comments Name Details Category Date Date Treatment Clinician Date 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 due to due to 00:00: vitamin vitamin 00 B>12< B>12< deficiency deficiency 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) Full body Full body Problem Active hives hives Cervical Cervical Problem Active disc disc herniation herniation Extra-artic Extra-artic Problem Active ular ular rheumatoid rheumatoid process process Anxiety Anxiety Problem Active with with somatic somatic features features Stable Stable Problem Active angina angina Obesity Obesity Problem Active Mild Mild Problem Active vitamin D vitamin D deficiency deficiency Rheumatoid Rheumatoid Problem Active nodules nodules Anxious Anxious Problem Active depression depression Abnormal Abnormal Problem Active urine urine findings findings Nicotine Nicotine Problem Active dependence dependence CAD CAD Problem Active (coronary (coronary artery artery disease) disease) Dyspnea Dyspnea Problem Active H/O H/O Problem Active nicotine nicotine dependence dependence Knee Knee Problem Active arthropathy arthropathy Rheumatoid Rheumatoid Problem Active arthritis arthritis involving involving both hands both hands with with positive positive rheumatoid rheumatoid factor factor Low vitamin Low vitamin Problem Active D level D level COPD, COPD, Problem Active moderate moderate Chronic Chronic Problem Active fatigue fatigue Age-related Age-related Problem Active osteoporosi osteoporosi s without s without current current pathologica pathologica l fracture l fracture Wrist Wrist Problem Active arthritis arthritis Prolonged Prolonged Problem Active grief grief reaction reaction Multiple Multiple Problem Active lung lung nodules on nodules on CT CT Procedures Procedure Date / Time Performed Performing Clinician Devistar chauhan EKG 2020-05-25 00:00:00 CT - Chest without Contrast 2020-03-24 00:00:00 CBC 2020-03-21 00:00:00 CMP(Complete Metabolic Panel) 2020-03-21 00:00:00 CRP 2020-03-21 00:00:00 Sed Rate 2020-03-21 00:00:00 Urinalysis 2020-03-21 00:00:00 CT - Chest with and without IV 2020-03-21 00:00:00 contrast Established patient office or other 2019-10-15 13:10:00 outpatient, visit typically 25 minutes NC 2019-04-17 08:46:00 COLLJ RAMÓN BLD VNPNXR 2018-11-19 16:05:00 OFFICE OUTPT EST15 MIN 2018-11-19 16:05:00 OFFICE OUTPT EST15 MIN 2018-06-18 11:57:00 OFFICE OUTPT EST15 MIN 2018-04-04 10:00:00 OFFICE OUTPT EST 25 MIN 2017-12-26 14:02:00 OFFICE OUTPT EST15 MIN 2017-11-28 14:56:00 OFFICE OUTPT EST 25 MIN 2017-09-09 10:07:00 OFFICE OUTPT EST15 MIN 2017-06-20 09:53:00 OFFICE OUTPT EST 25 MIN 2017-05-01 11:24:00 HGB GLYCOSYLATED 2017-05-01 11:24:00 OFFICE OUTPT EST 10 MIN 2017-04-04 13:12:00 OFFICE OUTPT EST15 MIN 2017 12:24:00 COLLJ RAMÓN BLD VNPNXR 2017 12:24:00 OFFICE OUTPT EST15 MIN 2017-01-17 12:13:00 COLLJ RAMÓN BLD VNPNXR 2017-01-17 12:13:00 OFFICE OUTPT EST 25 MIN 2016-10-30 15:48:00 COLLJ RAMÓN BLD VNPNXR 2016-10-30 15:48:00 cholecystectomy 1991-08-26 00:00:00 hysterectomy 1981-08-26 00:00:00 tonsillectomy 1972-08-26 00:00:00 Left knee Replacement appendectomy History of Total Abdominal Hysterectomy With Removal Of Both Ovaries History of Cholecystectomy History of Cystoscopy With Pyeloscopy With Manipulation Of Calculus History of Nephrectomy Left History of Direct Laryngoscopy With Stripping Of Vocal Cords History of Appendectomy History of Cardiac catheterization Results Test Description Test Time Test Comments Text Results Atomic Results Result Comments Creatinine 2020-07-05 13:58:00 Test Item Value Reference Range Comments Creatinine (test code = Creatinine) 0.6400 mg/dL 0.5700-1.000 0 Cr Clearance (Est) (test code = Cr Clearance 112.4300 75. 0000-115.0000 (Est)) Glucose (test code = Glucose) 130.0000 mg/dL 65.0000-99.0000 BUN (test code = BUN) 8.0000 mg/dL 8.0000-27.0000 eGFR Gwc-Nazghrr-Wpxmcxge (test code = eGFR 95.0000 Fcz-Dggybjq-Qlzqaqjt) eGFR -Malawian (test code = eGFR 109.0000 -Malawian) BUN/Creat Ratio (test code = BUN/Creat Ratio) 13.0000 12 .0000-28.0000 Sodium (test code = Sodium) 138.0000 mmol/L 134.0000-144.0000 Potassium (test code = Potassium) 4.6000 mmol/L 3.5000-5.2000 Chloride (test code = Chloride) 99.0000 mmol/L 96.0000-106.0000 CO2 (test code = CO2) 22.0000 mmol/L 20.0000-29.0000 Calcium (test code = Calcium) 9.0000 mg/dL 8.7000-10.3000 Protein, Total (test code = Protein, Total) 6.1000 g/dL 6.00 00-8.5000 Albumin (test code = Albumin) 4.0000 g/dL 3.8000-4.8000 Globulin (test code = Globulin) 2.1000 g/dL 1.5000-4.5000 A/G Ratio (test code = A/G Ratio) 1.9000 1.2000-2.2000 Bilirubin, Total (test code = Bilirubin, Total) 0.3000 mg/dL 0.0000-1.2000 Alkaline Phosphatase (test code = Alkaline 81.0000 39.00 00-117.0000 Phosphatase) AST (SGOT) (test code = AST (SGOT)) 14.0000 0.0000-40.00 00 ALT (SGPT) (test code = ALT (SGPT)) 10.0000 0.0000-32.00 00 Hepatitis B Surface [id number] 13:58:00 Test Item Value Reference Range Comments Hepatitis B Surface Ag (test code = Hepatitis B Negative Surface Ag) Hepatitis A Ab, IgM (test code = Hepatitis A Ab, Negative IgM) Hepatitis B Core Ab, IgM (test code = Hepatitis B Negative Core Ab, IgM) Hepatitis C Virus Ab (test code = Hepatitis C Virus 0.1000 0.0000-0.9000 Ab) [id number] 12:45:00 Test Item Value Reference Range Comments WBC (test code = WBC) 9.7000 4.0000-10.0000 Lymphocytes % (test code = Lymphocytes %) 20.0000 % 22.400 0-43.6000 MID% (test code = MID%) 4.5000 % 1.2000-11.2000 Neutrophils % (test code = Neutrophils %) 75.5000 % 48.900 0-69.9000 Lymphocytes (test code = Lymphocytes) 1.9000 1.2000-3.2 000 MID (test code = MID) 0.5000 0.1000-1.1000 Neutrophils (test code = Neutrophils) 7.3000 1.5000-6.7 000 RBC (test code = RBC) 4.4100 3.7000-4.9000 HGB (test code = HGB) 13.9000 g/dL 11.2000-18.0000 HCT (test code = HCT) 41.9000 % 34.0000-44.0000 MCV (test code = MCV) 94.9000 fL 80.0000-94.0000 MCH (test code = MCH) 31.5000 pg 27.0000-34.0000 MCHC (test code = MCHC) 33.1000 g/dL 31.5000-36.0000 RDW (test code = RDW) 16.0000 11.0000-18.0000 PLT (test code = PLT) 322.0000 140.0000-440.0000 MPV (test code = MPV) 8.2000 fL 6.8000-10.6000 Leukemia/Lymphoma [id number] 14:36:00 Test Item Value Reference Range Comments Leukemia/Lymphoma Interp Comment CD5+, CD23+ clonal (test code = B-cell population, CLL/SLL Leukemia/Lymphoma Interp) phenotype, CD38 positive (75%), <5000/uL,. 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 A CD5+, CD23+, kappa+ clonal B-cell population was reported in a left axillary lymph node Assessment of Leukocytes (test Comment A CD5+, CD23+ code = Assessment of Leukocytes) monoclonal B cell population is detected with kappa light chain restriction representing 10% of the leukocytes. CD38 is expressed on 75% of the clonal B-cells. There is no loss of, or aberrant expression of, the ramirez T cell antige Immunophenotypic Profile (test Comment Abnormal cell code = Immunophenotypic Profile) population: present-10% of total cells (Phenotype below) Analysis and Gating Strategy Comment 8 color analysis (test code = Analysis and Gating with CD45/SSC gating Strategy) Phenotype Chart (test code = Comment CD2 (-) CD3 (-) CD4 Phenotype Chart) (-) CD5 (+) CD7 (-) CD8 (-) CD10 (-) CD11b (-) CD11c (+) CD13 (-) CD14 (-) CD15 (-) CD16 Resulting Path Name (test code = Comment Yanet Mk, Resulting Path Name) Tomi Clinical [id number] 14:36:00 Test Item Value Reference Range Comments Clinical Information (test Comment Small cell B-cell code = Clinical Information) lymphoma, anemia Accompanying CBC dated 06/21/20 shows: WBC 7.9, Janiya 4.8, Lym 2.7, Mon 0.4 Specimen Type (test code = Comment Peripheral blood Specimen Type) Viability (test code = Comment 85% Viability) Comment (test code = Comment Each antibody in this Comment) assay was utilized to assess for potential abnormalities of studied cell populations or to characterize identified abnormalities. This test was developed and its performance characteristics determined by [employer]. It has [id number] 14:36:00 Test Item Value Reference Range Comments Creatinine (test code = Creatinine) 0.6300 mg/dL 0.5700-1.000 0 Cr Clearance (Est) (test code = Cr 110.4700 75.0000-115.0 000 Clearance (Est)) Glucose (test code = Glucose) 100.0000 mg/dL 65.0000-99.0000 BUN (test code = BUN) 8.0000 mg/dL 8.0000-27.0000 eGFR Wzh-Xgxghvz-Lvpnwucq (test code = 95.0000 eGFR Zsy-Xdzghgq-Fhuxmhie) eGFR -Malawian (test code = eGFR 110.0000 -Malawian) BUN/Creat Ratio (test code = BUN/Creat 13.0000 12.0000-2 8.0000 Ratio) Sodium (test code = Sodium) 141.0000 mmol/L 134.0000-144.0000 Potassium (test code = Potassium) 4.4000 mmol/L 3.5000-5.2000 Chloride (test code = Chloride) 104.0000 mmol/L 96.0000-106.0000 CO2 (test code = CO2) 22.0000 mmol/L 20.0000-29.0000 Calcium (test code = Calcium) 9.3000 mg/dL 8.7000-10.3000 Protein, Total (test code = Protein, 6.2000 g/dL 6.0000-8.50 00 Total) Albumin (test code = Albumin) 3.9000 g/dL 3.8000-4.8000 Globulin (test code = Globulin) 2.3000 g/dL 1.5000-4.5000 A/G Ratio (test code = A/G Ratio) 1.7000 1.2000-2.2000 Bilirubin, Total (test code = Bilirubin, 0.4000 mg/dL 0.0000- 1.2000 Total) Alkaline Phosphatase (test code = 72.0000 39.0000-117.00 00 Alkaline Phosphatase) AST (SGOT) (test code = AST (SGOT)) 20.0000 0.0000-40.00 00 ALT (SGPT) (test code = ALT (SGPT)) 13.0000 0.0000-32.00 00 Iron, Total (test code = Iron, Total) 71.0000 27.0000-13 9.0000 TIBC (test code = TIBC) 276.0000 250.0000-450.0000 UIBC (test code = UIBC) 205.0000 118.0000-369.0000 % Iron Saturation (test code = % Iron 26.0000 % 15.0000-55 .0000 Saturation) Vitamin B12 (test code = Vitamin B12) 347.0000 pg/mL 232.0000-1 245.0000 Folate (test code = Folate) 20.0000 ng/mL LDH, Total (test code = LDH, Total) 170.0000 119.0000-226 .0000 Ferritin (test code = Ferritin) 60.0000 ng/mL 15.0000-150.0000 [id number] 10:32:00 Test Item Value Reference Range Comments WBC (test code = WBC) 7.9000 4.0000-10.0000 Lymphocytes % (test code = Lymphocytes %) 34.3000 % 22.400 0-43.6000 MID% (test code = MID%) 4.9000 % 1.2000-11 Neutrophils % (test code = Neutrophils %) 60.8000 % 48.900 0-69.9000 Lymphocytes (test code = Lymphocytes) 2.7000 1.2000-3.2 000 MID (test code = MID) 0.4000 0.1000-1.1000 Neutrophils (test code = Neutrophils) 4.8000 1.5000-6.7 000 RBC (test code = RBC) 4.2900 3.7000-4.9000 HGB (test code = HGB) 13.7000 g/dL 11.2000-18.0000 HCT (test code = HCT) 39.9000 % 34.0000-44.0000 MCV (test code = MCV) 93.1000 fL 80.0000-94.0000 MCH (test code = MCH) 32.1000 pg 27.0000-34.0000 MCHC (test code = MCHC) 34.4000 g/dL 31.5000-36.0000 RDW (test code = RDW) 11.0000-18.0000 PLT (test code = PLT) 292.0000 140.0000-440.0000 MPV (test code = MPV) 7.7000 fL 6.8000-10.6000 [id number] 10:32:00 Test Item Value Reference Range Comments RDW (test code = RDW) 11.0000-18.0000 Neutrophils % (test code = Neutrophils %) 60.8000 % 48.900 0-69.9000 HCT (test code = HCT) 39.9000 % 34.0000-44.0000 Lymphocytes % (test code = Lymphocytes %) 34.3000 % 22.400 0-43.6000 MID% (test code = MID%) 4.9000 % .1999-11.2000 MCH (test code = MCH) 32.1000 pg 27.0000-34.0000 MPV (test code = MPV) 7.7000 fL 6.8000-10.6000 MCV (test code = MCV) 93.1000 fL 80.0000-94.0000 MCHC (test code = MCHC) 34.4000 g/dL 31.5000-36.0000 HGB (test code = HGB) 13.7000 g/dL 11.2000-18.0000 Lymphocytes (test code = Lymphocytes) 2.7000 1.2000-3.2 000 MID (test code = MID) 0.4000 0.1000-1.1000 PLT (test code = PLT) 292.0000 140.0000-440.0000 WBC (test code = WBC) 7.9000 4.0000-10.0000 Neutrophils (test code = Neutrophils) 4.8000 1.5000-6.7 000 RBC (test code = RBC) 4.2900 3.7000-4.9000 CT - Chest without [id number] 13:30:00An image is avaliable in i[employer], click link to view [id number] 12:02:00 Test Item Value Reference Range Comments White Blood Cell (test code = White Blood Cell) 9.8 K/uL 3.5-11.1 Red Blood Cell (test code = Red Blood Cell) 4.80 {M/uL} 3.69 -4.87 Hemoglobin (test code = Hemoglobin) 14.8 g/dL 11.4-14.4 Hematocrit (test code = Hematocrit) 45 % 33-41 Mean Corpuscular Volume (test code = Mean 93.8 fL 79.0-9 5.0 Corpuscular Volume) Mean Corpuscular Hemoglobin (test code = Mean 30.8 pg/mL 27 .0-33.0 Corpuscular Hemoglobin) Mean Corpuscular Hemoglobin Concentration (test 32.9 g/dL 33.5-35.5 code = Mean Corpuscular Hemoglobin Concentration) Red Cell Distribution Width (test code = Red 13.9 % 12. 0-15.0 Cell Distribution Width) Platelet (test code = Platelet) 289 K/uL 130-353 Mean Platelet Volume (test code = Mean Platelet 9.5 fL 7.5-10.7 Volume) Neutrophil Count, absolute (test code = 5.4 K/uL 1.9-7.2 Neutrophil Count, absolute) Neutrophil Count Percentage (test code = 55.2 % 43.0-72 .0 Neutrophil Count Percentage) Lymphocyte Count, absolute (test code = 3.8 K/uL 1.1-2.7 Lymphocyte Count, absolute) Lymphocyte Count Percentage (test code = 39.2 % 17.0-44 .0 Lymphocyte Count Percentage) Monocyte Count, absolute (test code = Monocyte 0.3 K/uL 0 .3-0.8 Count, absolute) Monocyte Count Percentage (test code = Monocyte 3.1 % 4.5-12.4 Count Percentage) Eosinophil Count, absolute (test code = 0.1 K/uL 0.0-0.5 Eosinophil Count, absolute) Eosinophil Count Percentage (test code = 1.2 % 0.7-7.8 Eosinophil Count Percentage) Basophil Count, absolute (test code = Basophil 0.1 K/uL 0 .0-0.1 Count, absolute) Basophil Count Percentage (test code = Basophil 0.7 % 0.2-1.1 Count Percentage) Nucleated Red Blood Cell, absolute (test code = 0.00 K/uL 0.00-0.00 Nucleated Red Blood Cell, absolute) Nucleated Red Blood Cell, percentage (test code 0.00 % 0.00-0.00 = Nucleated Red Blood Cell, percentage) Sed [id number] 12:02:00 Test Item Value Reference Range Comments Erythrocyte Sedimentation Rate (test code = 10 {mm/hr} 0-30 Erythrocyte Sedimentation Rate) [id number] 12:02:00 Test Item Value Reference Range Comments Urine Color (test code = Urine LT. YELLOW Yellow Color) Urine Clarity (test code = CLEAR Clear Urine Clarity) Urine Glucose (test code = NEGATIVE Negative Urine Glucose) Urine Ketones (test code = NEGATIVE Negative Urine Ketones) Urine Bilirubin (test code = SMALL Negative Cata ble to perform Ictotest Urine Bilirubin) due to reagent unavailable from manufacture r. Urine Specific [place] (test 1.030 1.010-1.030 code = Urine Specific [place]) Urine Blood (test code = Urine NEGATIVE Negative Blood) Urine pH (test code = Urine 5.5 5.0-8.0 pH) Urine Protein (test code = NEGATIVE Negative Urine Protein) Urine Urobilinogen (test code 0.2 Eu/dl 0.2 = Urine Urobilinogen) Urine Nitrites (test code = NEGATIVE Negative Urine Nitrites) Urine Leukocytes (test code = NEGATIVE Negative Urine Leukocytes) CMP(Complete Metabolic Panel)2020-03-21 12:02:00 Test Item Value Reference Range Comments Glucose (test code = Glucose) 91 mg/dL 74-106 Sodium (test code = Sodium) 142 mmol/L 135-145 Potassium (test code = Potassium) 4.9 mmol/L 3.5-5.3 Chloride (test code = Chloride) 108 mmol/L 98-107 CO2 (test code = CO2) 28 mmol/L 22-30 Creatinine, serum (test code = Creatinine, serum) 0.70 mg/dL 0.10-1.04 Glomerular Filtration Rate (test code = >60 >60 Glomerular Filtration Rate) Glomerular Filtration Rate AA (test code = >60 >60 Glomerular Filtration Rate AA) Blood Urea Nitrogen (test code = Blood Urea 16 mg/dL 7-17 Nitrogen) Calcium (test code = Calcium) 10.3 mg/dL 8.4-10.5 Phosphorus (test code = Phosphorus) 4.5 mg/dL 2.5-4.5 Total Protein (test code = Total Protein) 6.9 g/dL 6.3-8. 2 Albumin (test code = 59578-0) 4.2 g/dL 3.5-5.0 Total Bilirubin (test code = Total Bilirubin) 0.4 mg/dL 0. 2-1.3 Bilirubin, unconj (test code = Bilirubin, unconj) 0.3 mg/dL 0.0-1.1 Bilirubin, Direct (test code = Bilirubin, Direct) 0.1 mg/dL 0.0-0.4 Alkaline Phosphatase (test code = Alkaline 72 U/L 20-15 0 Phosphatase) Alanine Transaminase (test code = Alanine 9 U/L 0-35 Transaminase) Aspartate Aminotransferase (test code = Aspartate 15 U/L 3-36 Aminotransferase) [id number] 12:02:00 Test Item Value Reference Range Comments C-Reactive Protein (test code = C-Reactive Protein) <5 <10 Less than linearityCreatine Kinase,Total,Serum ([id number] 10:10:00 Test Item Value Reference Range Comments Creatine Kinase,Total,Serum (test code = 2283) 35.000 U/L 2 4-204 CBC ([id number]) [id number] 10:10:00 Test Item Value Reference Range Comments Baso (Absolute) (test code = 2346) 0.100 x10E3/uL 0.0-0.2 Basos (test code = 2347) 1.000 % 0-3 Immature Granulocytes (test code = 2355) 0.000 % 0-2 Hematocrit (test code = 2350) 42.700 % 36.0-50.0 RDW (test code = 2368) 13.900 % 11.7-15.0 Eos (test code = 2348) 1.000 % 0-7 Platelets (test code = 2366) 221.000 x10E3/uL 140-415 Lymphs (Absolute) (test code = 2357) 3.100 x10E3/uL 0.7-4.5 MCV (test code = 2360) 93.000 fL 80-98 Immature Grans (Abs) (test code = 2354) 0.000 x10E3/uL 0.0-0.1 Eos (Absolute) (test code = 2349) 0.100 x10E3/uL 0.0-0.4 Lymphs (test code = 2356) 30.000 % 14-46 WBC (test code = 2369) 10.200 x10E3/uL 4.0-10.5 RBC (test code = 2367) 4.580 x10E6/uL 4.10-5.60 MCH (test code = 2358) 30.100 pg 27.0-34.0 Neutrophils (Absolute) (test code = 2364) 6.500 x10E3/uL 1.8-7. 8 Monocytes(Absolute) (test code = 2362) 0.400 x10E3/uL 0.1-1.0 Neutrophils (test code = 2363) 64.000 % 40-74 MCHC (test code = 2359) 32.300 g/dL 32.0-36.0 Monocytes (test code = 2361) 4.000 % 4-13 Hemoglobin (test code = 2352) 13.800 g/dL 12.5-17.0 [id number] 10:10:00 Test Item Value Reference Range Comments TSH (test code = 2280) 2.470 uIU/mL 0.450-4.500 Lipid [id number] 10:10:00 Test Item Value Reference Range Comments HDL Cholesterol (test code = 2501) 37.000 mg/dL >39 VLDL Cholesterol Dre (test code = 2504) 22.000 mg/dL 5-40 LDL Cholesterol Calc (test code = 2502) 34.000 mg/dL 0-99 Cholesterol, Total (test code = 2500) 93.000 mg/dL 100-199 Triglycerides (test code = 2503) 110.000 mg/dL 0-149 CMP14 ([id number]) [id number] 10:10:00 Test Item Value Reference Range Comments Albumin, Serum (test code 4.200 g/dL 3.5-5.5 Plea se note reference = 2320) interval change\X000d\\ X0A\ Egfr If Africn Am (test 100.000 mL/min/1.73 >59 code = 3068) AST (SGOT) (test code = 16.000 IU/L 0-40 2323) Chloride, Serum (test 106.000 mmol/L 97-108 code = 2329) Sodium, Serum (test code 146.000 mmol/L 135-145 = 2337) Bilirubin, Total (test 0.500 mg/dL 0.0-1.2 code = 2324) A/G Ratio (test code = 2.200 1.1-2.5 2319) Potassium, Serum (test 4.300 mmol/L 3.5-5.2 code = 2335) eGFR If NonAfricn Am 86.000 mL/min/1.73 >59 (test code = 2332) Protein, Total, Serum 6.100 g/dL 6.0-8.5 (test code = 2336) BUN (test code = 2325) 6.000 mg/dL 6-20 ALT (SGPT) (test code = 7.000 IU/L 0-55 2322) BUN/Creatinine Ratio 8.000 8-19 (test code = 2326) Alkaline Phosphatase, S 82.000 IU/L 25-150 (test code = 2321) Carbon Dioxide, Total 23.000 mmol/L 20-32 (test code = 2328) Globulin, Total (test 1.900 g/dL 1.5-4.5 code = 2333) Glucose, Serum (test code 99.000 mg/dL 65-99 = 2334) Calcium, Serum (test code 9.200 mg/dL 8.7-10.2 = 2327) Creatinine, Serum (test 0.740 mg/dL 0.76-1.27 code = 2330) Creatine Kinase,Total,Serum ([id number])2019-04-09 10:26:00 Test Item Value Reference Range Comments Creatine Kinase,Total,Serum (test code = 2283) 108.000 U/L 2 4-204 Lipid [id number] 10:26:00 Test Item Value Reference Range Comments LDL Cholesterol Calc (test code = 2502) 48.000 mg/dL 0-99 HDL Cholesterol (test code = 2501) 39.000 mg/dL >39 VLDL Cholesterol Dre (test code = 2504) 20.000 mg/dL 5-40 Cholesterol, Total (test code = 2500) 107.000 mg/dL 100-199 Triglycerides (test code = 2503) 100.000 mg/dL 0-149 CBC ([id number]) [id number] 10:26:00 Test Item Value Reference Range Comments Monocytes (test code = 2361) 4.000 % 4-13 Baso (Absolute) (test code = 2346) 0.000 x10E3/uL 0.0-0.2 Lymphs (test code = 2356) 29.000 % 14-46 MCHC (test code = 2359) 33.500 g/dL 32.0-36.0 Eos (Absolute) (test code = 2349) 0.100 x10E3/uL 0.0-0.4 Basos (test code = 2347) 0.000 % 0-3 Immature Granulocytes (test code = 2355) 0.000 % 0-2 RBC (test code = 2367) 4.790 x10E6/uL 4.10-5.60 Monocytes(Absolute) (test code = 2362) 0.500 x10E3/uL 0.1-1.0 RDW (test code = 2368) 14.100 % 11.7-15.0 MCV (test code = 2360) 92.000 fL 80-98 Hemoglobin (test code = 2352) 14.800 g/dL 12.5-17.0 WBC (test code = 2369) 13.300 x10E3/uL 4.0-10.5 Platelets (test code = 2366) 267.000 x10E3/uL 140-415 Immature Grans (Abs) (test code = 2354) 0.000 x10E3/uL 0.0-0.1 Lymphs (Absolute) (test code = 2357) 3.900 x10E3/uL 0.7-4.5 Neutrophils (test code = 2363) 66.000 % 40-74 Hematocrit (test code = 2350) 44.200 % 36.0-50.0 Neutrophils (Absolute) (test code = 2364) 8.900 x10E3/uL 1.8-7. 8 MCH (test code = 2358) 30.900 pg 27.0-34.0 Eos (test code = 2348) 1.000 % 0-7 CMP14 ([id number]) [id number] 10:26:00 Test Item Value Reference Range Comments Chloride, Serum (test code = 2329) 104.000 mmol/L 97-108 Glucose, Serum (test code = 2334) 99.000 mg/dL 65-99 Creatinine, Serum (test code = 2330) 0.750 mg/dL 0.76-1.27 AST (SGOT) (test code = 2323) 14.000 IU/L 0-40 A/G Ratio (test code = 2319) 1.800 1.1-2.5 Protein, Total, Serum (test code = 2336) 7.000 g/dL 6.0-8.5 BUN (test code = 2325) 8.000 mg/dL 6-20 Alkaline Phosphatase, S (test code = 85.000 IU/L 25-150 2321) Calcium, Serum (test code = 2327) 9.500 mg/dL 8.7-10.2 Carbon Dioxide, Total (test code = 2328) 21.000 mmol/L 20-32 Sodium, Serum (test code = 2337) 140.000 mmol/L 135-145 ALT (SGPT) (test code = 2322) 9.000 IU/L 0-55 Bilirubin, Total (test code = 2324) 0.900 mg/dL 0.0-1.2 Albumin, Serum (test code = 2320) 4.500 g/dL 3.5-5.5 eGFR If NonAfricn Am (test code = 2332) 85.000 mL/min/1.73 >59 Globulin, Total (test code = 2333) 2.500 g/dL 1.5-4.5 Potassium, Serum (test code = 2335) 4.200 mmol/L 3.5-5.2 BUN/Creatinine Ratio (test code = 2326) 11.000 8-19 Egfr If Africn Am (test code = 3068) 98.000 mL/min/1.73 >59 Creatine Kinase,Total,Serum ([id number])2018-09-26 11:13:00 Test Item Value Reference Range Comments Creatine Kinase,Total,Serum (test code = 2283) 109.000 U/L 2 4-204 CBC ([id number]) [id number] 11:13:00 Test Item Value Reference Range Comments Platelets (test code = 2366) 292.000 x10E3/uL 140-415 Baso (Absolute) (test code = 2346) 0.000 x10E3/uL 0.0-0.2 Lymphs (Absolute) (test code = 2357) 2.100 x10E3/uL 0.7-4.5 Basos (test code = 2347) 0.000 % 0-3 RBC (test code = 2367) 4.540 x10E6/uL 4.10-5.60 Monocytes (test code = 2361) 10.000 % 4-13 Immature Grans (Abs) (test code = 2354) 0.100 x10E3/uL 0.0-0.1 Lymphs (test code = 2356) 21.000 % 14-46 Neutrophils (test code = 2363) 67.000 % 40-74 MCHC (test code = 2359) 33.700 g/dL 32.0-36.0 RDW (test code = 2368) 14.700 % 11.7-15.0 Eos (Absolute) (test code = 2349) 0.100 x10E3/uL 0.0-0.4 Hematocrit (test code = 2350) 41.900 % 36.0-50.0 Monocytes(Absolute) (test code = 2362) 1.000 x10E3/uL 0.1-1.0 MCH (test code = 2358) 31.100 pg 27.0-34.0 MCV (test code = 2360) 92.000 fL 80-98 Hemoglobin (test code = 2352) 14.100 g/dL 12.5-17.0 Immature Granulocytes (test code = 2355) 1.000 % 0-2 Eos (test code = 2348) 1.000 % 0-7 Neutrophils (Absolute) (test code = 2364) 6.600 x10E3/uL 1.8-7. 8 WBC (test code = 2369) 9.800 x10E3/uL 4.0-10.5 CMP14 ([id number]) [id number] 11:13:00 Test Item Value Reference Range Comments Potassium, Serum (test code = 2335) 4.400 mmol/L 3.5-5.2 BUN (test code = 2325) 6.000 mg/dL 6-20 eGFR If NonAfricn Am (test code = 2332) 74.000 mL/min/1.73 >59 Albumin, Serum (test code = 2320) 4.400 g/dL 3.5-5.5 AST (SGOT) (test code = 2323) 19.000 IU/L 0-40 Sodium, Serum (test code = 2337) 139.000 mmol/L 135-145 BUN/Creatinine Ratio (test code = 2326) 7.000 8-19 Carbon Dioxide, Total (test code = 2328) 20.000 mmol/L 20-32 Glucose, Serum (test code = 2334) 87.000 mg/dL 65-99 Alkaline Phosphatase, S (test code = 67.000 IU/L 25-150 2321) ALT (SGPT) (test code = 2322) 14.000 IU/L 0-55 Creatinine, Serum (test code = 2330) 0.850 mg/dL 0.76-1.27 A/G Ratio (test code = 2319) 1.800 1.1-2.5 Egfr If Africn Am (test code = 3068) 85.000 mL/min/1.73 >59 Bilirubin, Total (test code = 2324) 0.800 mg/dL 0.0-1.2 Protein, Total, Serum (test code = 2336) 6.800 g/dL 6.0-8.5 Calcium, Serum (test code = 2327) 9.400 mg/dL 8.7-10.2 Chloride, Serum (test code = 2329) 100.000 mmol/L 97-108 Globulin, Total (test code = 2333) 2.400 g/dL 1.5-4.5 Lipid [id number] 11:13:00 Test Item Value Reference Range Comments Cholesterol, Total (test code = 2500) 100.000 mg/dL 100-199 LDL Cholesterol Calc (test code = 2502) 49.000 mg/dL 0-99 VLDL Cholesterol Dre (test code = 2504) 15.000 mg/dL 5-40 HDL Cholesterol (test code = 2501) 36.000 mg/dL >39 Triglycerides (test code = 2503) 74.000 mg/dL 0-149 CMP14 ([id number]) [id number] 09:30:00 Test Item Value Reference Range Comments eGFR If NonAfricn Am (test code = 2332) 88.000 mL/min/1.73 >59 Alkaline Phosphatase, S (test code = 79.000 IU/L 25-150 2321) ALT (SGPT) (test code = 2322) 8.000 IU/L 0-55 Sodium, Serum (test code = 2337) 146.000 mmol/L 135-145 Calcium, Serum (test code = 2327) 9.700 mg/dL 8.7-10.2 BUN/Creatinine Ratio (test code = 2326) 23.000 8-19 Protein, Total, Serum (test code = 2336) 6.500 g/dL 6.0-8.5 Glucose, Serum (test code = 2334) 88.000 mg/dL 65-99 Globulin, Total (test code = 2333) 2.200 g/dL 1.5-4.5 AST (SGOT) (test code = 2323) 11.000 IU/L 0-40 Potassium, Serum (test code = 2335) 5.000 mmol/L 3.5-5.2 Creatinine, Serum (test code = 2330) 0.740 mg/dL 0.76-1.27 A/G Ratio (test code = 2319) 2.000 1.1-2.5 BUN (test code = 2325) 17.000 mg/dL 6-20 Chloride, Serum (test code = 2329) 107.000 mmol/L 97-108 Carbon Dioxide, Total (test code = 2328) 25.000 mmol/L 20-32 Albumin, Serum (test code = 2320) 4.300 g/dL 3.5-5.5 Egfr If Africn Am (test code = 3068) 101.000 mL/min/1.73 >59 Creatine Kinase,Total,Serum ([id number])2017-04-05 09:30:00 Test Item Value Reference Range Comments Creatine Kinase,Total,Serum (test code = 2283) 47.000 U/L 2 4-204 CBC ([id number]) [id number] 09:30:00 Test Item Value Reference Range Comments Eos (test code = 2348) 2.000 % 0-7 Basos (test code = 2347) 0.000 % 0-3 RBC (test code = 2367) 4.560 x10E6/uL 4.10-5.60 Platelets (test code = 2366) 316.000 x10E3/uL 140-415 Lymphs (test code = 2356) 29.000 % 14-46 Eos (Absolute) (test code = 2349) 0.200 x10E3/uL 0.0-0.4 Monocytes (test code = 2361) 7.000 % 4-13 Immature Grans (Abs) (test code = 2354) 0.000 x10E3/uL 0.0-0.1 Monocytes(Absolute) (test code = 2362) 0.800 x10E3/uL 0.1-1.0 Lymphs (Absolute) (test code = 2357) 3.300 x10E3/uL 0.7-4.5 Hematocrit (test code = 2350) 41.400 % 36.0-50.0 WBC (test code = 2369) 11.200 x10E3/uL 4.0-10.5 Hemoglobin (test code = 2352) 13.300 g/dL 12.5-17.0 MCV (test code = 2360) 91.000 fL 80-98 Immature Granulocytes (test code = 2355) 0.000 % 0-2 MCH (test code = 2358) 29.200 pg 27.0-34.0 RDW (test code = 2368) 14.800 % 11.7-15.0 MCHC (test code = 2359) 32.100 g/dL 32.0-36.0 Neutrophils (Absolute) (test code = 2364) 6.800 x10E3/uL 1.8-7. 8 Neutrophils (test code = 2363) 62.000 % 40-74 Baso (Absolute) (test code = 2346) 0.000 x10E3/uL 0.0-0.2 Creatine Kinase,Total,Serum ([id number])2017-02-06 10:22:00 Test Item Value Reference Range Comments Creatine Kinase,Total,Serum (test code = 2283) 46.000 U/L 2 4-204 Lipid [id number] 11:06:00 Test Item Value Reference Range Comments Triglycerides (test code = 2503) 108.000 mg/dL 0-149 Cholesterol, Total (test code = 2500) 127.000 mg/dL 100-199 HDL Cholesterol (test code = 2501) 40.000 mg/dL >39 VLDL Cholesterol Dre (test code = 2504) 22.000 mg/dL 5-40 LDL Cholesterol Calc (test code = 2502) 65.000 mg/dL 0-99 Creatine Kinase,Total,Serum ([id number])2016-12-07 11:06:00 Test Item Value Reference Range Comments Creatine Kinase,Total,Serum (test code = 2283) 56.000 U/L 2 4-204 Creatine Kinase,Total,Serum ([id number])2016-10-10 09:46:00 Test Item Value Reference Range Comments Creatine Kinase,Total,Serum (test code = 2283) 58.000 U/L 2 4-204 CBC ([id number]) [id number] 09:46:00 Test Item Value Reference Range Comments Baso (Absolute) (test code = 2346) 0.100 x10E3/uL 0.0-0.2 Eos (test code = 2348) 2.000 % 0-7 RBC (test code = 2367) 4.480 x10E6/uL 4.10-5.60 MCHC (test code = 2359) 32.900 g/dL 32.0-36.0 Basos (test code = 2347) 1.000 % 0-3 Lymphs (Absolute) (test code = 2357) 3.500 x10E3/uL 0.7-4.5 MCH (test code = 2358) 30.600 pg 27.0-34.0 Immature Granulocytes (test code = 2355) 0.000 % 0-2 WBC (test code = 2369) 10.200 x10E3/uL 4.0-10.5 Immature Grans (Abs) (test code = 2354) 0.000 x10E3/uL 0.0-0.1 Hematocrit (test code = 2350) 41.700 % 36.0-50.0 RDW (test code = 2368) 14.800 % 11.7-15.0 Neutrophils (Absolute) (test code = 2364) 6.100 x10E3/uL 1.8-7. 8 MCV (test code = 2360) 93.000 fL 80-98 Platelets (test code = 2366) 295.000 x10E3/uL 140-415 Monocytes(Absolute) (test code = 2362) 0.400 x10E3/uL 0.1-1.0 Neutrophils (test code = 2363) 58.000 % 40-74 Monocytes (test code = 2361) 4.000 % 4-13 Lymphs (test code = 2356) 35.000 % 14-46 Hemoglobin (test code = 2352) 13.700 g/dL 12.5-17.0 Eos (Absolute) (test code = 2349) 0.200 x10E3/uL 0.0-0.4 Lipid [id number] 09:46:00 Test Item Value Reference Range Comments HDL Cholesterol (test code = 2501) 55.000 mg/dL >39 VLDL Cholesterol Dre (test code = 2504) 19.000 mg/dL 5-40 LDL Cholesterol Calc (test code = 2502) 117.000 mg/dL 0-99 Triglycerides (test code = 2503) 95.000 mg/dL 0-149 Cholesterol, Total (test code = 2500) 191.000 mg/dL 100-199 CMP14 ([id number]) [id number] 09:46:00 Test Item Value Reference Range Comments Chloride, Serum (test 105.000 mmol/L 97-108 code = 2329) AST (SGOT) (test code = 20.000 IU/L 0-40 2323) Potassium, Serum (test 4.800 mmol/L 3.5-5.2 code = 2335) Calcium, Serum (test code 9.200 mg/dL 8.7-10.2 = 2327) Protein, Total, Serum 6.400 g/dL 6.0-8.5 (test code = 2336) Creatinine, Serum (test 0.730 mg/dL 0.76-1.27 code = 2330) Alkaline Phosphatase, S 66.000 IU/L 25-150 (test code = 2321) Globulin, Total (test 2.100 g/dL 1.5-4.5 code = 2333) Albumin, Serum (test code 4.300 g/dL 3.5-5.5 = 2320) BUN (test code = 2325) 9.000 mg/dL 6-20 Sodium, Serum (test code 142.000 mmol/L 135-145 = 2337) Egfr If Africn Am (test 104.000 mL/min/1.73 >59 code = 3068) ALT (SGPT) (test code = 21.000 IU/L 0-55 2322) BUN/Creatinine Ratio 12.000 8-19 (test code = 2326) Bilirubin, Total (test 0.200 mg/dL 0.0-1.2 code = 2324) Glucose, Serum (test code 88.000 mg/dL 65-99 = 2334) Carbon Dioxide, Total 21.000 mmol/L 20-32 (test code = 2328) A/G Ratio (test code = 2.000 1.1-2.5 Effecti ve November 05, 2318) 2016 the referen ce interval\X000d \\X0A\ for A/G Ratio will b e changing to:\X000d\\X0A\ Age Male Female\X000d\\X0 A\ 0 - 7 days 1.1 - 2.3 1.1 - 2.3\X000d\\X0A\ 8 - 30 days 1.2 - 2.8 1.2 - 2.8\X000d\\X0A\ 1 - 6 months 1.3 - 3.6 1.3 - 3.6\X000d\\X0A\ 7 months - 5 year s 1.5 - 2.6 1.5 - 2.6\X000d\\X0A\ > 5 years 1.2 - 2.2 1.2 - 2.2\X000d\\X0A\ eGFR If NonAfricn Am 90.000 mL/min/1.73 >59 (test code = 2332) [id number] 10:25:00 Test Item Value Reference Range Comments RBC (test code = RBC) 4.5600 3.7000-4.9000 WBC (test code = WBC) 11.8000 4.0000-10.0000 MID (test code = MID) 0.7000 0.1000-1.1000 Neutrophils (test code = Neutrophils) 8.1000 1.5000-6.7 000 PLT (test code = PLT) 262.0000 140.0000-440.0000 Lymphocytes (test code = Lymphocytes) 3.0000 1.2000-3.2 000 HGB (test code = HGB) 13.9000 g/dL 11.1999-14.4000 MCHC (test code = MCHC) 33.8000 g/dL 31.5000-36.0000 MCV (test code = MCV) 90.0000 fL 80.0000-94.0000 MPV (test code = MPV) 8.1000 fL 6.8000-10.6000 MCH (test code = MCH) 30.4000 pg 27.0000-34.0000 Neutrophils % (test code = Neutrophils %) 68.2000 % 48.900 0-69.9000 Lymphocytes % (test code = Lymphocytes %) 25.6000 % 22.400 0-43.6000 MID% (test code = MID%) 6.1999 % .1999-11.1999 HCT (test code = HCT) 41.1000 % 34.0000-44.0000 RDW (test code = RDW) 11.0000-18.0000 [id number] 10:25:00 Test Item Value Reference Range Comments WBC (test code = WBC) 11.8000 4.0000-10.0000 Lymphocytes % (test code = Lymphocytes %) 25.6000 % 22.400 0-43.6000 MID% (test code = MID%) 6.2000 % .1999-11.1999 Neutrophils % (test code = Neutrophils %) 68.2000 % 48.900 0-69.9000 Lymphocytes (test code = Lymphocytes) 3.0000 1.2000-3.2 000 MID (test code = MID) 0.7000 0.1000-1.1000 Neutrophils (test code = Neutrophils) 8.1000 1.5000-6.7 000 RBC (test code = RBC) 4.5600 3.7000-4.9000 HGB (test code = HGB) 13.9000 g/dL 11.1999-14.4000 HCT (test code = HCT) 41.1000 % 34.0000-44.0000 MCV (test code = MCV) 90.0000 fL 80.0000-94.0000 MCH (test code = MCH) 30.4000 pg 27.0000-34.0000 MCHC (test code = MCHC) 33.8000 g/dL 31.5000-36.0000 RDW (test code = RDW) 11.0000-18.0000 PLT (test code = PLT) 262.0000 140.0000-440.0000 MPV (test code = MPV) 8.1000 fL 6.8000-10.6000 [id number] 08:11:00 Test Item Value Reference Range Comments RDW (test code = RDW) 14.1000 11.0000-18.0000 HCT (test code = HCT) 43.3000 % 34.0000-44.0000 Neutrophils % (test code = Neutrophils %) 60.5000 % 48.900 0-69.9000 MID% (test code = MID%) 6.0000 % .1999- Lymphocytes % (test code = Lymphocytes %) 33.5000 % 22.400 0-43.6000 MCH (test code = MCH) 28.8000 pg 27.0000-34.0000 MCV (test code = MCV) 88.2000 fL 80.0000-94.0000 MPV (test code = MPV) 7.4000 fL 6.8000-10.6000 MCHC (test code = MCHC) 32.6000 g/dL 31.5000-36.0000 HGB (test code = HGB) 14.1000 g/dL 11.2000-14.4000 Lymphocytes (test code = Lymphocytes) 3.7000 1.2000-3.2 000 MID (test code = MID) 0.7000 0.1000-1.1000 Neutrophils (test code = Neutrophils) 6.7000 1.5000-6.7 000 PLT (test code = PLT) 272.0000 140.0000-440.0000 WBC (test code = WBC) 11.1000 4.0000-10.0000 RBC (test code = RBC) 4.9000 3.7000-4.9000 [id number] 08:11:00 Test Item Value Reference Range Comments WBC (test code = WBC) 11.1000 4.0000-10.0000 Lymphocytes % (test code = Lymphocytes %) 33.5000 % 22.400 0-43.6000 MID% (test code = MID%) 6.0000 % - Neutrophils % (test code = Neutrophils %) 60.5000 % 48.900 0-69.9000 Lymphocytes (test code = Lymphocytes) 3.7000 1.2000-3.2 000 MID (test code = MID) 0.7000 0.1000-1.1000 Neutrophils (test code = Neutrophils) 6.7000 1.5000-6.7 000 RBC (test code = RBC) 4.9000 3.7000-4.9000 HGB (test code = HGB) 14.1000 g/dL 11.2000-14.4000 HCT (test code = HCT) 43.3000 % 34.0000-44.0000 MCV (test code = MCV) 88.2000 fL 80.0000-94.0000 MCH (test code = MCH) 28.8000 pg 27.0000-34.0000 MCHC (test code = MCHC) 32.6000 g/dL 31.5000-36.0000 RDW (test code = RDW) 14.1000 11.0000-18.0000 PLT (test code = PLT) 272.0000 140.0000-440.0000 MPV (test code = MPV) 7.4000 fL 6.8000-10.6000 Iron, [id number] 13:46:00 Test Item Value Reference Range Comments Iron, Total (test code = Iron, Total) 73.0000 27.0000-15 9.0000 TIBC (test code = TIBC) 285.0000 250.0000-450.0000 UIBC (test code = UIBC) 212.0000 131.0000-425.0000 Protein, Total (test code = Protein, Total) 7.0000 g/dL 6.00 00-8.5000 Albumin (test code = Albumin) 3.7000 g/dL 3.2000-5.6000 Globulin (test code = Globulin) 3.3000 g/dL 2.0000-4.5000 % Iron Saturation (test code = % Iron 26.0000 % 15.0000-55 .0000 Saturation) Vitamin B12 (test code = Vitamin B12) 267.0000 pg/mL 211.0000-9 46.0000 Ferritin (test code = Ferritin) 106.0000 ng/mL 15.0000-150.0000 Folate (test code = Folate) 7.4000 ng/mL A/G Ratio (test code = A/G Ratio) 1.2000 0.7000-2.0000 Alpha-1 [id number] 13:46:00 Test Item Value Reference Range Comments Alpha-1 Globulin (test code 0.2000 g/dL 0.1000-0.4000 = Alpha-1 Globulin) Alpha-2 Globulin (test code 1.0000 g/dL 0.4000-1.2000 = Alpha-2 Globulin) Beta Globulin (test code = 1.0000 g/dL 0.6000-1.3000 Beta Globulin) Gamma Globulin (test code = 1.2000 g/dL 0.5000-1.6000 Gamma Globulin) M-Nixon (test code = 0.6000 g/dL 0.0000-0.0000 M-Nixon) IGA (test code = IGA) 103.0000 mg/dL 87.0000-352.0000 IGG (test code = IGG) 766.0000 mg/dL 700.0810-5737.0000 IGM (test code = IGM) 627.0000 mg/dL 26.0000-217.0000 Lambda Free Light Chain 15.3600 mg/L 5.7100-26.3000 (test code = Lambda Free Light Chain) [place] Free Light Chain (test 92.6200 mg/L 3.3000-19.4000 code = [place] Free Light Chain) Immunofixation Interp, Serum Comment Immunofixation shows (test code = Immunofixation IgM monoclonal protein with Interp, Serum) kappa light chain specificity PE Note (test code = PE Comment Protein Note) electrophoresis scan will follow via computer, mail, or truck packer delivery [place]/Lambda Free Ratio 6.0300 0.2600-1.6500 (test code = [place]/Lambda Free Ratio) Gamma [id number] 13:46:00 Test Item Value Reference Range Comments Gamma Globulin (test code = 1.2000 g/dL 0.5000-1.6000 Gamma Globulin) IGA (test code = IGA) 103.0000 mg/dL 87.0000-352.0000 IGG (test code = IGG) 766.0000 mg/dL 700.4356-3397.0000 IGM (test code = IGM) 627.0000 mg/dL 26.0000-217.0000 Alpha-1 Globulin (test code 0.2000 g/dL 0.1000-0.4000 = Alpha-1 Globulin) Alpha-2 Globulin (test code 1.0000 g/dL 0.4000-1.2000 = Alpha-2 Globulin) Beta Globulin (test code = 1.0000 g/dL 0.6000-1.3000 Beta Globulin) Immunofixation Interp, Serum Comment Immunofixation shows (test code = Immunofixation IgM monoclonal protein with Interp, Serum) kappa light chain specificity [place] Free Light Chain (test 92.6200 mg/L 3.3000-19.4000 code = [place] Free Light Chain) [place]/Lambda Free Ratio 6.0300 0.2600-1.6500 (test code = [place]/Lambda Free Ratio) Lambda Free Light Chain 15.3600 mg/L 5.7100-26.3000 (test code = Lambda Free Light Chain) M-Nixon (test code = 0.6000 g/dL 0.0000-0.0000 M-Nixon) PE Note (test code = PE Comment Protein Note) electrophoresis scan will follow via computer, mail, or truck packer delivery Protein, [id number] 13:46:00 Test Item Value Reference Range Comments Protein, Total (test code = Protein, Total) 7.0000 g/dL 6.00 00-8.5000 Albumin (test code = Albumin) 3.7000 g/dL 3.2000-5.6000 Globulin (test code = Globulin) 3.3000 g/dL 2.0000-4.5000 A/G Ratio (test code = A/G Ratio) 1.2000 0.7000-2.0000 Iron, Total (test code = Iron, Total) 73.0000 27.0000-15 9.0000 TIBC (test code = TIBC) 285.0000 250.0000-450.0000 UIBC (test code = UIBC) 212.0000 131.0000-425.0000 % Iron Saturation (test code = % Iron 26.0000 % 15.0000-55 .0000 Saturation) Vitamin B12 (test code = Vitamin B12) 267.0000 pg/mL 211.0000-9 46.0000 Folate (test code = Folate) 7.4000 ng/mL Ferritin (test code = Ferritin) 106.0000 ng/mL 15.0000-150.0000 [id number] 13:37:00 Test Item Value Reference Range Comments RDW (test code = RDW) 14.4000 11.0000-18.0000 Neutrophils % (test code = Neutrophils %) 64.3000 % 48.900 0-69.9000 MID% (test code = MID%) 6.5000 % 1.2000-11.2000 HCT (test code = HCT) 43.1000 % 34.0000-44.0000 Lymphocytes % (test code = Lymphocytes %) 29.2000 % 22.400 0-43.6000 MCH (test code = MCH) 30.8000 pg 27.0000-34.0000 MPV (test code = MPV) 7.5000 fL 6.8000-10.6000 MCV (test code = MCV) 90.3000 fL 80.0000-94.0000 MCHC (test code = MCHC) 34.1000 g/dL 31.5000-36.0000 HGB (test code = HGB) 14.7000 g/dL 11.2000-14.4000 Lymphocytes (test code = Lymphocytes) 4.3000 1.2000-3.2 000 MID (test code = MID) 1.0000 0.1000-1.1000 Neutrophils (test code = Neutrophils) 9.6000 1.5000-6.7 000 PLT (test code = PLT) 309.0000 140.0000-440.0000 WBC (test code = WBC) 14.9000 4.0000-10.0000 RBC (test code = RBC) 4.7700 3.7000-4.9000 Alkaline [id number] 13:37:00 Test Item Value Reference Range Comments Alkaline Phosphatase (test code = Alkaline 65.0000 42.00 00-141.0000 Phosphatase) ALT (SGPT) (test code = ALT (SGPT)) 13.0000 10.0000-47.0 000 AST (SGOT) (test code = AST (SGOT)) 12.0000 11.0000-37.0 000 Sodium (test code = Sodium) 137.0000 mmol/L 128.0000-145.0000 Chloride (test code = Chloride) 111.0000 mmol/L 96.0000-108.0000 CO2 (test code = CO2) 25.0000 mmol/L 18.0000-33.0000 Potassium (test code = Potassium) 4.0000 mmol/L 3.6000-5.1000 eGFR -[place] (test code = eGFR 78.0000 60.0000- 125.0000 -[place]) eGFR Axj-Kpovehl-Ueozvpfj (test code = 64.0000 60.0000-1 25.0000 eGFR Pma-Ldkccwt-Guxeepnc) Cr Clearance (Est) (test code = Cr 93.7900 75.0000-115.0 000 Clearance (Est)) Albumin (test code = Albumin) 4.2000 g/dL 3.5000-5.5000 Glucose (test code = Glucose) 104.0000 mg/dL 70.0000-118.0000 Creatinine (test code = Creatinine) 0.9000 mg/dL 0.5000-1.200 0 Bilirubin, Total (test code = Bilirubin, 0.5000 mg/dL 0.0000- 1.6000 Total) BUN (test code = BUN) 11.0000 mg/dL 7.0000-22.0000 Calcium (test code = Calcium) 8.9000 mg/dL 8.0000-10.3000 Protein, Total (test code = Protein, 7.1000 g/dL 6.4000-8.10 00 Total) [id number] 13:37:00 Test Item Value Reference Range Comments WBC (test code = WBC) 14.9000 4.0000-10.0000 Lymphocytes % (test code = Lymphocytes %) 29.2000 % 22.400 0-43.6000 MID% (test code = MID%) 6.5000 % 1.2000-11.2000 Neutrophils % (test code = Neutrophils %) 64.3000 % 48.900 0-69.9000 Lymphocytes (test code = Lymphocytes) 4.3000 1.2000-3.2 000 MID (test code = MID) 1.0000 0.1000-1.1000 Neutrophils (test code = Neutrophils) 9.6000 1.5000-6.7 000 RBC (test code = RBC) 4.7700 3.7000-4.9000 HGB (test code = HGB) 14.7000 g/dL 11.2000-14.4000 HCT (test code = HCT) 43.1000 % 34.0000-44.0000 MCV (test code = MCV) 90.3000 fL 80.0000-94.0000 MCH (test code = MCH) 30.8000 pg 27.0000-34.0000 MCHC (test code = MCHC) 34.1000 g/dL 31.5000-36.0000 RDW (test code = RDW) 14.4000 11.0000-18.0000 PLT (test code = PLT) 309.0000 140.0000-440.0000 MPV (test code = MPV) 7.5000 fL 6.8000-10.6000 [id number] 13:37:00 Test Item Value Reference Range Comments Creatinine (test code = Creatinine) 0.9000 mg/dL 0.5000-1.200 0 Cr Clearance (Est) (test code = Cr 93.7900 75.0000-115.0 000 Clearance (Est)) Glucose (test code = Glucose) 104.0000 mg/dL 70.0000-118.0000 BUN (test code = BUN) 11.0000 mg/dL 7.0000-22.0000 Sodium (test code = Sodium) 137.0000 mmol/L 128.0000-145.0000 Potassium (test code = Potassium) 4.0000 mmol/L 3.6000-5.1000 Chloride (test code = Chloride) 111.0000 mmol/L 96.0000-108.0000 CO2 (test code = CO2) 25.0000 mmol/L 18.0000-33.0000 Calcium (test code = Calcium) 8.9000 mg/dL 8.0000-10.3000 Alkaline Phosphatase (test code = Alkaline 65.0000 42.00 00-141.0000 Phosphatase) ALT (SGPT) (test code = ALT (SGPT)) 13.0000 10.0000-47.0 000 AST (SGOT) (test code = AST (SGOT)) 12.0000 11.0000-37.0 000 Bilirubin, Total (test code = Bilirubin, 0.5000 mg/dL 0.0000- 1.6000 Total) Albumin (test code = Albumin) 4.2000 g/dL 3.5000-5.5000 Protein, Total (test code = Protein, 7.1000 g/dL 6.4000-8.10 00 Total) eGFR -[place] (test code = eGFR 78.0000 60.0000- 125.0000 -[place]) eGFR Dvx-Omgiscj-Ggywepel (test code = 64.0000 60.0000-1 25.0000 eGFR Geq-Nnmhbvd-Xspzcefi) Assessments Condition Name Status Diagnosis Date Treating Clinici an Dysphagia, unspecified Active 0 Dysphagia, unspecified Active 0 Chronic fatigue, unspecified Active Unilateral primary osteoarthritis, left knee Active 0 Unilateral primary osteoarthritis, left knee Active 0 Other Problems Related to Lifestyle Active Unilateral primary osteoarthritis, left knee Active Hyperglycemia, unspecified Active Hyperglycemia, unspecified Active Counseling on Substance Use and Abuse Active Counseling on Substance Use and Abuse Active Dyspnea, unspecified Active SYSTEM Nicotine dependence Active Age-related osteoporosis without current Active pathological fracture Chronic fatigue Active Wrist arthritis Active Rheumatoid nodules Active COPD, moderate Active Low vitamin D level Active Multiple lung nodules on CT Active CAD (coronary artery disease) Active Use of nonprescription opiate drugs Active Current smoker Active Rheumatoid arthritis involving both hands Active with positive rheumatoid factor Anxiety with somatic features Active Nicotine dependence Active CAD (coronary artery disease) Active COPD, moderate Active Stable angina Active Rheumatoid arthritis involving both hands Active with positive rheumatoid factor Nicotine dependence Active Age-related osteoporosis without current Active pathological fracture Chronic fatigue Active Mild vitamin D deficiency Active CAD (coronary artery disease) Active Wrist arthritis Active Rheumatoid nodules Active Obesity Active COPD, moderate Active Low vitamin D level Active Stable angina pectoris Active COPD, moderate Active Nicotine dependence Active Nodule, rheumatoid Active Rheumatoid arthritis involving both hands Active with positive rheumatoid factor Rheumatoid arthritis involving both hands Active with positive rheumatoid factor Nicotine dependence Active Age-related osteoporosis without current Active pathological fracture Anxious depression Active Chronic fatigue Active Stable angina Active Rheumatoid arthritis involving both hands Active with positive rheumatoid factor Nicotine dependence Active CAD (coronary artery disease) Active COPD, moderate Active Stable angina Active Rheumatoid arthritis involving both hands Active with positive rheumatoid factor H/O nicotine dependence Active Dyspnea Active COPD, moderate Active Rheumatoid arthritis involving both hands Active with positive rheumatoid factor Prolonged grief reaction Active Acute upper respiratory infection, Active unspecified Otitis media, unspecified, right ear Active Acute upper respiratory infection, Active unspecified Otitis media, unspecified, right ear Active Acute upper respiratory infection, Active unspecified Otitis media, unspecified, right ear Active Rheumatoid arthritis involving both hands Active with positive rheumatoid factor Wrist arthritis Active Obesity Active COPD, moderate Active Low vitamin D level Active Acute upper respiratory infection, Active unspecified Otitis media, unspecified, right ear Active Tobacco abuse counseling Active Otitis media, unspecified, bilateral Active Tobacco abuse counseling Active Otitis media, unspecified, bilateral Active Tobacco abuse counseling Active Otitis media, unspecified, bilateral Active Tobacco abuse counseling Active Otitis media, unspecified, bilateral Active Cerebrovascular disease, unspecified Active Cerebrovascular disease, unspecified Active Cerebrovascular disease, unspecified Active Insomnia, unspecified Active Insomnia, unspecified Active Insomnia, unspecified Active G47.00 Active Chest pain, unspecified Active Tobacco use Active Atherosclerotic heart disease of [place] Active coronary artery without angina pectoris Chest pain, unspecified Active Tobacco use Active Atherosclerotic heart disease of [place] Active coronary artery without angina pectoris Chest pain, unspecified Active Tobacco use Active Atherosclerotic heart disease of [place] Active coronary artery without angina pectoris Chest pain, unspecified Active Z72.0 Active I25.10 Active Major depressive disorder, recurrent, Active unspecified Major depressive disorder, recurrent, Active unspecified Major depressive disorder, recurrent, Active unspecified Major depressive disorder, recurrent, Active unspecified Reaction to severe stress, unspecified Active Reaction to severe stress, unspecified Active Reaction to severe stress, unspecified Active F43.9 Active F33.9 Active Hyperglycemia Active Prediabetes Active Hyperglycemia Active Prediabetes Active Hyperglycemia Active Prediabetes Active Prediabetes Active Unspecified contact dermatitis, unspecified Active cause Unspecified contact dermatitis, unspecified Active cause Unspecified contact dermatitis, unspecified Active cause Unspecified contact dermatitis, unspecified Active cause Myalgia and Myositis Not Otherwise Specified Active Myalgia Active Myalgia and Myositis Not Otherwise Specified Active Myalgia Active Myalgia and Myositis Not Otherwise Specified Active Myalgia Active Body mass index (BMI) 32.0-32.9, adult Active Body mass index (BMI) 32.0-32.9, adult Active Body mass index (BMI) 32.0-32.9, adult Active Hyperlipidemia, unspecified Active Hyperlipidemia, unspecified Active Hyperlipidemia, unspecified Active Hyperlipidemia, unspecified Active Hyperlipidemia, unspecified Active Hyperlipidemia Not Elsewhere Classified and Active Not Otherwise Specified Hyperlipidemia, unspecified Active Hyperlipidemia Not Elsewhere Classified and Active Not Otherwise Specified Hyperlipidemia, unspecified Active Hyperlipidemia Not Elsewhere Classified and Active Not Otherwise Specified Hyperlipidemia, unspecified Active Essential (primary) hypertension Active Acute stress reaction Active E78.5 Active Rheumatoid arthritis, unspecified Active Other supervisor intermediates (current) drug therapy Active Anxiety disorder, unspecified Active F17.210 Active Z79.891 Active J44.9 Active Dizziness and Giddiness vertigo Active Dizziness and giddiness Active Dizziness and Giddiness vertigo Active Dizziness and giddiness Active Dizziness and Giddiness vertigo Active Dizziness and giddiness Active Fibrocystic breast Active Diffuse cystic mastopathy of unspecified Active breast Fibrocystic breast Active Diffuse cystic mastopathy of unspecified Active breast Fibrocystic breast Active Diffuse cystic mastopathy of unspecified Active breast Rheumatoid arthritis with rheumatoid factor, Active unspecified Rheumatoid arthritis with rheumatoid factor, Active unspecified Rheumatoid arthritis with rheumatoid factor, Active unspecified Major depressive disorder, single episode, Active unspecified Depressive Disorder Not Elsewhere Classified Active Major depressive disorder, single episode, Active unspecified Depressive Disorder Not Elsewhere Classified Active Major depressive disorder, single episode, Active unspecified Depressive Disorder Not Elsewhere Classified Active Major depressive disorder, single episode, Active unspecified Acute stress reaction Active Acute Stress Reaction Not Otherwise Active Specified Acute stress reaction Active Acute Stress Reaction Not Otherwise Active Specified Acute stress reaction Active Acute Stress Reaction Not Otherwise Active Specified Acute stress reaction Active Lumbar or Lumbosacral Disc Degeneration Active Cervical Disc Degeneration Active Systemic or Visceral Rheumatoid Arthritis Active Not Elsewhere Classified Lump or Mass in Breast Active Other intervertebral disc degeneration, Active lumbar region Unspecified lump in breast Active Other cervical disc degeneration, Active unspecified cervical region Lumbar or Lumbosacral Disc Degeneration Active Cervical Disc Degeneration Active Systemic or Visceral Rheumatoid Arthritis Active Not Elsewhere Classified Lump or Mass in Breast Active Other intervertebral disc degeneration, Active lumbar region Unspecified lump in breast Active Other cervical disc degeneration, Active unspecified cervical region Lumbar or Lumbosacral Disc Degeneration Active Cervical Disc Degeneration Active Systemic or Visceral Rheumatoid Arthritis Active Not Elsewhere Classified Lump or Mass in Breast Active Other intervertebral disc degeneration, Active lumbar region Unspecified lump in breast Active Other cervical disc degeneration, Active unspecified cervical region Dietary Surveillance and Counseling Active Dietary counseling and surveillance Active Dietary Surveillance and Counseling Active Dietary counseling and surveillance Active Dietary Surveillance and Counseling Active Dietary counseling and surveillance Active Generalized anxiety disorder Active Generalized anxiety disorder Active Generalized Anxiety Disorder Active Obesity Not Otherwise Specified Active Generalized anxiety disorder Active Obesity, unspecified Active Generalized Anxiety Disorder Active Obesity Not Otherwise Specified Active Generalized anxiety disorder Active Obesity, unspecified Active Generalized Anxiety Disorder Active Obesity Not Otherwise Specified Active Generalized anxiety disorder Active Obesity, unspecified Active terminal system operator (current) use of opiate analgesic Active terminal system operator (current) use of opiate analgesic Active snf (current) use of opiate analgesic Active terminal system operator (current) use of opiate analgesic Active Rheumatoid arthritis of unspecified site Active with involvement of other organs and systems terminal system operator (current) use of opiate analgesic Active snf (current) use of opiate analgesic Active Rheumatoid arthritis of unspecified site Active with involvement of other organs and systems snf (current) use of opiate analgesic Active Rheumatoid arthritis of unspecified site Active with involvement of other organs and systems Inflammatory Spondylopathy Not Otherwise Active Specified Anxiety State Not Otherwise Specified Active Nicotine dependence, cigarettes, Active uncomplicated Strain of muscle(s) and tendon(s) of the Active rotator cuff of right shoulder, initial encounter Unspecified inflammatory spondylopathy, Active cervical region Anxiety disorder, unspecified Active Unspecified inflammatory spondylopathy, Active lumbar region Inflammatory Spondylopathy Not Otherwise Active Specified Anxiety State Not Otherwise Specified Active Strain of muscle(s) and tendon(s) of the Active rotator cuff of right shoulder, initial encounter Unspecified inflammatory spondylopathy, Active cervical region Nicotine dependence, cigarettes, Active uncomplicated Anxiety disorder, unspecified Active Unspecified inflammatory spondylopathy, Active lumbar region Inflammatory Spondylopathy Not Otherwise Active Specified Anxiety State Not Otherwise Specified Active Nicotine dependence, cigarettes, Active uncomplicated Strain of muscle(s) and tendon(s) of the Active rotator cuff of right shoulder, initial encounter Unspecified inflammatory spondylopathy, Active cervical region Anxiety disorder, unspecified Active Unspecified inflammatory spondylopathy, Active lumbar region Nicotine dependence, cigarettes, Active uncomplicated Anxiety disorder, unspecified Active Anxiety disorder, unspecified Active Anxiety disorder, unspecified Active Nicotine dependence, cigarettes, Active uncomplicated Anxiety disorder, unspecified Active Anxiety disorder, unspecified Active Rheumatoid arthritis, unspecified Active Other chronic pain Active Rheumatoid arthritis, unspecified Active Other chronic pain Active Rheumatoid arthritis, unspecified Active Rheumatoid arthritis, unspecified Active Other chronic pain Active Rheumatoid arthritis, unspecified Active Other chronic pain Active Other chronic pain Active Rheumatoid arthritis, unspecified Active Rheumatoid arthritis, unspecified Active Other chronic pain Active Rheumatoid arthritis, unspecified Active Other chronic pain Active Rheumatoid arthritis, unspecified Active Other chronic pain Active Rheumatoid arthritis, unspecified Active Other chronic pain Active Acute Sinusitis Not Otherwise Specified Active Rheumatoid arthritis, unspecified Active Other chronic pain Active Acute bronchitis, unspecified Active Acute sinusitis, unspecified Active Acute Sinusitis Not Otherwise Specified Active Acute bronchitis, unspecified Active Rheumatoid arthritis, unspecified Active Other chronic pain Active Acute sinusitis, unspecified Active Acute Sinusitis Not Otherwise Specified Active Rheumatoid arthritis, unspecified Active Other chronic pain Active Acute bronchitis, unspecified Active Acute sinusitis, unspecified Active Flu Vacc. Active Encounter for immunization Active Nicotine dependence, unspecified, Active uncomplicated Otitis media, unspecified, unspecified ear Active Flu Vacc. Active Encounter for immunization Active Nicotine dependence, unspecified, Active uncomplicated Otitis media, unspecified, unspecified ear Active Flu Vacc. Active Encounter for immunization Active Nicotine dependence, unspecified, Active uncomplicated Otitis media, unspecified, unspecified ear Active Elevated white blood cell count, unspecified Active Elevated white blood cell count, unspecified Active Elevated white blood cell count, unspecified Active Special Screening Examination for Diabetes Active Mellitus Emphysema Not Elsewhere Classified Active Special Screening Examination for Diabetes Active Mellitus Emphysema Not Elsewhere Classified Active Special Screening Examination for Diabetes Active Mellitus Emphysema Not Elsewhere Classified Active Other retirement (current) drug therapy Active Other retirement (current) drug therapy Active Other retirement (current) drug therapy Active Other retirement (current) drug therapy Active Other retirement (current) drug therapy Active Essential (primary) hypertension Active Chronic obstructive pulmonary disease, Active unspecified Chronic obstructive pulmonary disease, Active unspecified Essential (primary) hypertension Active Essential (primary) hypertension Active Chronic obstructive pulmonary disease, Active unspecified Chronic obstructive pulmonary disease, Active unspecified Chronic obstructive pulmonary disease, Active unspecified Chronic obstructive pulmonary disease, Active unspecified Headache Active Hypertension Not Otherwise Specified Active Chronic obstructive pulmonary disease, Active unspecified Essential (primary) hypertension Active Headache Active Headache Active Hypertension Not Otherwise Specified Active Essential (primary) hypertension Active Chronic obstructive pulmonary disease, Active unspecified Headache Active Headache Active Hypertension Not Otherwise Specified Active Chronic obstructive pulmonary disease, Active unspecified Essential (primary) hypertension Active Headache Active Encounters Start End Encounter Admission Attending Care Care Encounter Date/Time Date/Time Type Type Clinicians Facility Department ID 2020-07-06 2020-07-06 Outpatient Elis Casas rn [id number] 00:00:00 00:00:00 [facility] Medical Oncology Oncology [facility] 2020-07-05 2020-07-05 Yessenia Casas [facility] [id number] 00:00[facility]00 00:00[facility] 2020-07-04 2020-07-04 Outpatient Elis Gilliamsteph n [id number] 00:00:00 00:00:00 Medical Medical Oncology [facility] [place] 2020-07-01 2020-07-01 Outpatient Elis Casas rn [id number] 00:00:00 00:00:00 [facility] Medical Oncology Oncology [facility] 2020-06-30 2020-06-30 Outpatient Elis Gillis n [id number] 00:00:00 00:00:00 Medical Medical Oncology [facility] [place] 2020-06-29 2020-06-29 Outpatient Elis Gillis n [id number] 00:00:00 00:00:00 Medical Medical Oncology [facility] [place] 2020-06-27 2020-06-27 Outpatient Elis Gillis n [id number] 00:00:00 00:00:00 Medical Medical Oncology [facility] [place] 2020-06-22 2020-06-22 Appointment [facility] [id number] 11:00:00 12:31:32 ; Cayden Goff D.O. 2020-06-22 2020-06-22 Outpatient Elis Gillis n [id number] 00:00:00 00:00:00 Medical Medical Oncology Oncology [facility] 2020-06-21 2020-06-21 Yessenia Howard [facility] [id number] 00:00:00 00:00:00 Cassandra Saini Medical Medical Oncology Oncology [facility] 2020-06-14 2020-06-14 Outpatient [facility] n [id number] 00:00:00 00:00:00 [facility] Medical Oncology Oncology [facility] 2020-06-13 2020-06-13 Outpatient [facility] n [id number] 00:00:00 00:00:00 Medical Medical Oncology Oncology [facility] [place] 2020-06-09 2020-06-09 Outpatient [facility] n [id number] 00:00:00 00:00:00 Medical Medical Oncology Oncology [facility] 2020-06-06 2020-06-06 Outpatient [facility] n [id number] 00:00:00 00:00:00 Medical Medical Oncology Oncology Center [facility] 2020-05-31 2020-05-31 Outpatient [facility] n [id number] 00:00:00 00:00:00 [facility] Medical Oncology Oncology [facility] [place] 2020-05-25 2020-05-25 Appointment [facility] [id number] 13:00:00 13:00:00 ; Ananth Lott NP 2020-05-18 2020-05-18 Outpatient [facility] n [id number] 00:00:00 00:00:00 [facility] Medical Oncology Oncology [facility] [place] 2020-05-03 2020-05-03 App[facility] [id number] 14:00:00 14:32:37 ; Marah Mcduffie MD 2020-04-28 2020-04-28 [facility] [id number] 11:00:00 11:00:00 ; [facility] Infusion, Unit 2020-04-19 2020-04-19 Appointment Froy [facility] [id number] 09:00:00 09:00:00 ; Marah Mcduffie MD 2020-04-01 2020-04-01 Appointment [facility] [id number] 13:30:00 13:30:00 ; CT ROBERTL LE, ROOM 2020-04-01 2020-04-01 Appointment [facility] [id number] 12:15:00 12:15:00 ; CIM Infusion, Unit 2020-03-21 2020-03-21 Appointment [facility] [id number] 11:00:00 11:00:00 ; Cayden Goff D.O. 2020-02-12 2020-02-12 Appointment [facility] [id number] 11:30:00 11:30:00 ; [facility] Infusion, Unit 2020-02-03 2020-02-03 [facility] [id number] 09:11:21 10:57:00 Crispin 2020-01-30 2020-01-30 O Osiris Yohannesemma, [facility] [id number] 11:15:00 23:59:59 Crispin 2019-12-24 2019-12-24 Appointment Padilla [facility] [id number] 09:00:00 09:00:00 ; Jabier Mejia MD 2019-12-23 2019-12-23 Appointment [facility] [id number] 14:30:00 14:30:00 ; CIM Infusion, Unit 2019-11-24 2019-11-24 Appointment [facility] [id number] 09:45:00 09:45:00 ; Cayden Goff D.O. 2019-11-04 2019-11-04 Appointment [facility] [id number] 09:00:00 09:00:00 ; CIM Infusion, Unit 2019-10-09 2019-10-09 Outpatient [facility] [id number] 00:00:00 00:00:00 Cayden 2019-10-07 2019-10-07 Appointment [facility] [id number] 09:00:00 09:00:00 ; CIM Infusion, Unit 2019-09-02 2019-09-03 O Michael Jerez [facility] [id number] 07:48:05 12:23:00 Michael Perez 2019-08-28 2019-08-28 O Michael Jerez [facility] 200 [id number] 11:12:52 23:59:59 Michael Perez 2019-08-03 2019-08-03 Appointment [facility] [id number] 08:45:00 08:45:00 ; CIM Infusion, Unit 2019-07-06 2019-07-06 Appointment [facility] [id number] 10:30:00 10:30:00 ; Cayden Goff D.O. 2019-06-30 2019-06-30 Appointment [facility] [id number] 08:30:00 08:30:00 ; CIM Infusion, Unit 2019-06-02 2019-06-02 [id number] 09:30:00 09:30:00 ; Jabier Mejia MD 2019-05-22 2019-05-22 Appointment [facility] [id number] 08:30:00 08:30:00 ; Cayden Goff D.O. 2019-05-14 2019-05-14 Appointment [facility] [id number] 09:00:00 09:00:00 ; CIM Infusion, Unit 2019-04-30 2019-04-30 Appointment [facility] [id number] 09:00:00 09:00:00 ; CIM Infusion, Unit 2019-04-16 2019-04-16 Appointment [facility] [id number] 10:00:00 10:00:00 ; CIM Infusion, Unit 2019-04-16 2019-04-16 Outpatient [facility] [id number] 00:00:00 00:00:00 2019-02-17 2019-02-17 Appointment [facility] [id number] 08:30:00 08:30:00 ; Cayden Goff D.O. 2019-02-17 2019-02-17 Appointment [facility] [id number] 08:00:00 08:00:00 ; [place], ROOM 2019-02-02 2019-02-02 Appointment [facility] [id number] 09:20:00 09:20:00 ; Bone Density, PV 2018-12-09 2018-12-09 O Aide Goff [facility] 2 [id number] 11:51:00 11:51:00 Aide Goff 2018-11-28 2018-11-28 Appointment Padilla [facility] [id number] 09:30:00 09:30:00 ; Jabier Mejia MD 2018-11-13 2018-11-13 Appointment [facility] [id number] 09:15:00 09:15:00 ; Aide Goff MD 2018-11-13 2018-11-13 Appointment [facility] [id number] 08:30:00 08:30:00 ; Cayden Goff D.O. 2018-09-26 2018-09-26 Outpatient Delfina, [facility] [id number] 00:00:00 00:00:00 Cayden 2018-09-03 2018-09-03 Appointment [facility] [id number] 08:45:00 08:45:00 ; Cayden Goff D.O. 2018-07-23 2018-07-23 Appointment Padilla [facility] [id number] 09:00:00 09:00:00 ; Jabier Mejia MD 2018-06-02 2018-06-02 Appointment [facility] [id number] 11:15:00 11:15:00 ; Cayden Goff D.O. 2018-05-27 2018-05-27 Outpatient Delfina, [facility] [id number] 00:00:00 00:00:00 Cayden 2018-02-05 2018-02-05 Outpatient [facility], [facility] [id number] 00:00:00 00:00:00 Cayden 2017-12-06 2017-12-06 Outpatient [facility]elfina, [facility] [id number] 00:00:00 00:00:00 Cayden 2017-10-09 2017-10-09 Outpatient [facility], [facility] [id number] 00:00:00 00:00:00 Cayden 2017-08-07 2017-08-07 Outpatient [facility], [facility] [id number] 00:00:00 00:00:00 Cayden 2017-06-05 2017-06-05 Outpatient [facility], [facility] [id number] 00:00:00 00:00:00 Cayden 2017-04-05 2017-04-05 Outpatient [facility], [facility] [id number] 00:00:00 00:00:00 Cayden 2017-02-18 2017-02-18 [id number] 00:00:00 00:00:00 Cayden 2017-02-06 2017-02-06 Outpatient [facility] [id number] 00:00:00 00:00:00 Cayden 2016-12-07 2016-12-07 Outpatient [facility] [id number] 00:00:00 00:00:00 Cayden 2016-10-10 2016-10-10 Outpatient [facility] [id number] 00:00:00 00:00:00 Cayden 2016-03-07 2016-03-07 Outpatient Mane Mane n [id number] 00:00:00 00:00:00 [facility] Oncology Oncology [facility] [place] 2016-02-02 2016-02-02 Outpatient [facility] n [id number] 00:00:00 00:00:00 [facility] Medical Oncology Oncology [facility] [place] 2016-01-31 2016-01-31 Yessenia Nguyen [facility] [id number] 00:00:00 00:00:00 Ashley Saini [facility] Medical Oncology Oncology [facility] [place] 2016-01-14 2016-01-14 Outpatient [facility] n [id number] 00:00:00 00:00:00 [facility] Medical Oncology Oncology [facility] [place] 2016-01-13 2016-01-13 Yessenia Nguyen [facility] [id number] 00:00:00 00:00:00 Ashley Saini [facility] Medical Oncology Oncology [facility] [place] 2016-01-04 2016-01-04 Yessenia Nguyen [facility] [id number] 00:00:00 00:00:00 Ashley Saini [facility] Medical Oncology Oncology [facility] [place] 2015-12-19 2015-12-19 [facility] [id number]:00 00:00:00 Parveen [facility] Medical Oncology Oncology [facility] [place] 2015-12-15 2015-12-15 Yessenia Casas [facility] [id number] 00:00:00 00:00:00 [facility] Oncology Oncology [facility] [place] 2015-12-12 2015-12-12 Outpatient Elis Gillis n [id number] 00:00:00 00:00:00 [facility] Medical Oncology Oncology [facility] [place] 2015-12-07 2015-12-07 Outpatient [facility] n [id number] 00:00:00 00:00:00 [facility] Oncology Oncology [facility] [place] 2015-12-05 2015-12-05 Outpatient [facility] n [id number] 00:00:00 00:00:00 [facility] Oncology Oncology [facility] Family History Family Member Diagnosis Comments Start Date Stop Date Grandmother Family history of hypertension Mother Family history of hypertension Mother Family history of malignant neoplasm of uterus Mother Family history of diabetes mellitus Mother Family history of cerebrovascular accident (CVA) Father Family history of hypertension Father Family history of myocardial infarction Father Family history of ST elevation myocardial infarction involving left anterior descending (LAD) coronary artery Sister Family history of hypertension Sister Family history of lung cancer Brother Family history of hypertension Grandfather Family history of hypertension Unspecified FHx: ischemic heart disease Family History Unspecified Family history of myocardial Family History infarction Unspecified Family history of ST elevation Family History myocardial infarction involving left anterior descending (LAD) coronary artery Immunizations Ordered Immunization Filled Immunization Date Status Commen ts Refusal Reason Name Name Flulaval Quadrivalent 2020-06-22 Completed 0.5 ML Intramuscular 00:00:00 Suspension Prefilled Syringe Fluarix Quadrivalent 2019-05-22 Completed 0.5 ML Intramuscular 00:00:00 Suspension Prefilled Syringe Fluarix Quadrivalent 2018-06-02 Completed 0.5 ML Intramuscular 00:00:00 Suspension Prefilled Syringe Prevnar 13 2018-06-02 Completed Intramuscular 00:00:00 Suspension Pneumococcal 2017-06-27 Completed polysaccharide 11:32:00 vaccine, 23 valent Fluarix Quadrivalent 2017-06-27 Completed 0.5 ML Intramuscular 11:31:00 Suspension Prefilled Syringe Payers Payer Name Policy Type Policy Number Effective Date Expiration D ate Plan of Treatment Planned Activity Planned Date Details Comments Future Scheduled Test [code = ] Future Scheduled Test [code = ] Social History Smoking Status Start Date Stop Date Current every day smoker 2020-07-05 00:00:00 2020-07-05 00:0 0:00 Social History Observation Description Sex Female Vital Signs Vital Name Observation Time Observation Value Comments SaO2% BldA PulseOx 2020-07-05 13:12:22 96.0000 % Heart rate 2020-07-05 13:12:22 88.0000 /min Resp rate 2020-07-05 13:12:22 20.0000 /min BP sys 2020-07-05 13:12:22 112.0000 mm[Hg] Body temperature 2020-07-05 13:12:22 97.2000 [degF] Weight 2020-07-05 13:12:22 176.8000 [lb_av] BMI 2020-07-05 13:12:22 32.8700 BP resendiz 2020-07-05 13:12:22 77.0000 mm[Hg] Bdy height 2020-07-05 13:12:22 61.5000 [in_i] BMI 2020-06-28 09:59:00 31.7900 BP resendiz 2020-06-28 09:59:00 85.0000 mm[Hg] Bdy height 2020-06-28 09:59:00 61.5000 [in_i] SaO2% BldA PulseOx 2020-06-28 09:59:00 98.0000 % Heart rate 2020-06-28 09:59:00 74.0000 /min Resp rate 2020-06-28 09:59:00 16.0000 /min BP sys 2020-06-28 09:59:00 141.0000 mm[Hg] Body temperature 2020-06-28 09:59:00 97.3000 [degF] Weight 2020-06-28 09:59:00 171.0000 [lb_av] Systolic blood pressure 2020-06-22 10:59:00 110 mm[Hg] Diastolic blood pressure 2020-06-22 10:59:00 60 mm[Hg] Weight 2020-06-22 10:59:00 176.2 [lb_av] Body mass index (BMI) [Ratio] 2020-06-22 10:59:00 32.23 kg/m2 Body temperature 2020-06-22 10:59:00 96.6 [degF] Heart Rate 2020-06-22 10:59:00 84 /min Respiratory rate 2020-06-22 10:59:00 18 /min O2 SAT 2020-06-22 10:59:00 95 % Source: RA Bdy height 2020-06-21 09:57:48 61.5000 [in_i] SaO2% BldA PulseOx 2020-06-21 09:57:48 98.0000 % Heart rate 2020-06-21 09:57:48 93.0000 /min Resp rate 2020-06-21 09:57:48 20.0000 /min BP sys 2020-06-21 09:57:48 104.0000 mm[Hg] Body temperature 2020-06-21 09:57:48 97.1000 [degF] Weight 2020-06-21 09:57:48 176.0000 [lb_av] BMI 2020-06-21 09:57:48 32.7200 BP resendiz 2020-06-21 09:57:48 55.0000 mm[Hg] Systolic blood pressure 2020-05-25 12:51:00 104 mm[Hg] Diastolic blood pressure 2020-05-25 12:51:00 62 mm[Hg] Body height 2020-05-25 12:51:00 62 [in_us] Weight 2020-05-25 12:51:00 173.125 [lb_av] Body mass index (BMI) [Ratio] 2020-05-25 12:51:00 31.67 kg/m2 Body temperature 2020-05-25 12:51:00 97.5 [degF] Heart Rate 2020-05-25 12:51:00 87 /min Systolic blood pressure 2020-04-19 09:13:00 114 mm[Hg] Diastolic blood pressure 2020-04-19 09:13:00 82 mm[Hg] Body height 2020-04-19 09:13:00 62 [in_us] Weight 2020-04-19 09:13:00 173 [lb_av] Body mass index (BMI) [Ratio] 2020-04-19 09:13:00 31.64 kg/m2 Body temperature 2020-04-19 09:13:00 97.1 [degF] Heart Rate 2020-04-19 09:13:00 92 /min Respiratory rate 2020-04-19 09:13:00 18 /min Systolic blood pressure 2020-04-01 13:12:00 120 mm[Hg] Diastolic blood pressure 2020-04-01 13:12:00 70 mm[Hg] Body temperature 2020-04-01 13:12:00 98 [degF] Heart Rate 2020-04-01 13:12:00 88 /min Respiratory rate 2020-04-01 13:12:00 20 /min Systolic blood pressure 2020-03-21 11:33:00 118 mm[Hg] Diastolic blood pressure 2020-03-21 11:33:00 68 mm[Hg] Body height 2020-03-21 11:33:00 62 [in_us] Weight 2020-03-21 11:33:00 174.375 [lb_av] Body mass index (BMI) [Ratio] 2020-03-21 11:33:00 31.89 kg/m2 Body temperature 2020-03-21 11:33:00 97.7 [degF] Heart Rate 2020-03-21 11:33:00 83 /min Respiratory rate 2020-03-21 11:33:00 18 /min O2 SAT 2020-03-21 11:33:00 98 % Source: RA BMI 2016-01-31 09:56:14 33.4800 BP resendiz 2016-01-31 09:56:14 74.0000 mm[Hg] Bdy height 2016-01-31 09:56:14 63.0000 [in_i] SaO2% BldA PulseOx 2016-01-31 09:56:14 96.0000 % Heart rate 2016-01-31 09:56:14 82.0000 /min Resp rate 2016-01-31 09:56:14 18.0000 /min BP sys 2016-01-31 09:56:14 116.0000 mm[Hg] Body temperature 2016-01-31 09:56:14 97.4000 [degF] Weight 2016-01-31 09:56:14 189.0000 [lb_av] BMI 2016-01-13 10:36:42 34.3300 BP resendiz 2016-01-13 10:36:42 77.0000 mm[Hg] Bdy height 2016-01-13 10:36:42 63.0000 [in_i] Heart rate 2016-01-13 10:36:42 82.0000 /min Resp rate 2016-01-13 10:36:42 14.0000 /min BP sys 2016-01-13 10:36:42 116.0000 mm[Hg] Body temperature 2016-01-13 10:36:42 98.1000 [degF] Weight 2016-01-13 10:36:42 193.8000 [lb_av] BMI 2016-01-04 08:38:33 34.5800 BP resendiz 2016-01-04 08:38:33 83.0000 mm[Hg] Bdy height 2016-01-04 08:38:33 63.0000 [in_i] Heart rate 2016-01-04 08:38:33 79.0000 /min Resp rate 2016-01-04 08:38:33 16.0000 /min BP sys 2016-01-04 08:38:33 131.0000 mm[Hg] Body temperature 2016-01-04 08:38:33 98.1000 [degF] Weight 2016-01-04 08:38:33 195.2000 [lb_av] BMI 2015-12-15 13:16:00 34.4700 BP resendiz 2015-12-15 13:16:00 85.0000 mm[Hg] Bdy height 2015-12-15 13:16:00 63.0000 [in_i] Heart rate 2015-12-15 13:16:00 89.0000 /min Resp rate 2015-12-15 13:16:00 18.0000 /min BP sys 2015-12-15 13:16:00 124.0000 mm[Hg] Body temperature 2015-12-15 13:16:00 98.7000 [degF] Weight 2015-12-15 13:16:00 194.6000 [lb_av] Hospital Discharge Instructions NameDatesDetailsInstructions not documentedNameDatesDetailsInstructions not documentedNameDatesDetailsInstructions not documented NameDatesDetailsInstructions not documentedNameDatesDetailsInstructions not documentedNameDatesDetailsInstructions not documented
== END 2020-07-06 14:15 | disposition home or self-care (01) ==
LOC: II 08:17 → 5TH 08:36 → II 14:15
PROVIDERS: ATTEND Internal Medicine
DX: Z51.11 Encounter for antineoplastic chemotherapy (principal); C83.08 Small cell B-cell lymphoma, lymph nodes of multiple sites
CPT/HCPCS: 96413; 96415; 96375; A9270; J1200; J7040; J9312 ×2

== ENCOUNTER 2020-07-27 08:53 | Outpatient (CLI) | payer MEDICARE, MEDICAID ==
[~2020-07-27 08:53] MED LIST changes: +DIPHENHYDRAMINE 50 MG in NS 50 ML IV PRN
[2020-07-27 12:51] VITALS: BP 114/48
== END 2020-07-27 13:13 | disposition home or self-care (01) ==
LOC: II 08:53 → 5TH 08:55 → II 13:13
PROVIDERS: ATTEND Internal Medicine
DX: Z51.11 Encounter for antineoplastic chemotherapy (principal); C83.08 Small cell B-cell lymphoma, lymph nodes of multiple sites
CPT/HCPCS: 96413; 96415; A9270; J1200; J7040; J9312 ×2

== ENCOUNTER 2020-08-03 08:03 | Outpatient (CLI) | payer MEDICARE, OTHER ==
[~2020-08-03 08:03] MED LIST changes: -DIPHENHYDRAMINE 50 MG/ML VIAL IV PRN
[2020-08-03 08:13] VITALS: BP 103/68
[2020-08-03] MEDS ORDERED: NORMAL SALINE IV PRN (08:19)
[2020-08-03] MEDS ORDERED: RITUXIMAB IV PRN (08:19)
== END 2020-08-03 12:30 | disposition home or self-care (01) ==
LOC: II 08:03 → 5TH 08:06 → II 12:30
PROVIDERS: ATTEND Internal Medicine
DX: Z51.11 Encounter for antineoplastic chemotherapy (principal); C83.08 Small cell B-cell lymphoma, lymph nodes of multiple sites
CPT/HCPCS: 96413; 96415; 96367; A9270; J1200; J7040; J9312 ×2

== ENCOUNTER 2020-08-10 08:09 | Outpatient (CLI) | payer MEDICARE, MEDICAID, OTHER ==
[2020-08-10] MEDS ORDERED: ACETAMINOPHEN 325 MG TABLET PO PRN (08:36)
[2020-08-10] MEDS ORDERED: NORMAL SALINE 250 ML IV PRN (08:36)
[2020-08-10] MEDS ORDERED: DIPHENHYDRAMINE HCL 50 MG in NORMAL SALINE 50 ML IV PRN (08:37)
[2020-08-10] MEDS ORDERED: NORMAL SALINE IV PRN (08:41)
[2020-08-10] MEDS ORDERED: RITUXIMAB IV PRN (08:41)
[2020-08-10 09:15] VITALS: BP 104/51
== END 2020-08-10 12:41 | disposition home or self-care (01) ==
LOC: II 08:09 → 5TH 08:18 → II 12:41
PROVIDERS: ATTEND Internal Medicine
DX: Z51.11 Encounter for antineoplastic chemotherapy (principal); C83.08 Small cell B-cell lymphoma, lymph nodes of multiple sites
CPT/HCPCS: 96413; 96415; 96367; A9270; J1200; J7040; J9312 ×2

== ENCOUNTER 2020-08-23 12:07 | Inpatient (IN) | payer MEDICARE, OTHER ==
[2020-08-23] MEDS ORDERED: NALOXONE HCL INJ/PF 0.4 MG/1 ML SDV ONE (12:25)
[2020-08-23] MEDS ORDERED: FLUMAZENIL INJ 0.5 MG/5 ML VIAL ONE (12:27)
--- NOTE | 2020-08-23 12:50 | ER Document Report ---
ED Neuro Symptoms/Deficit - General Chief Complaint: Altered Mental Status Stated Complaint: AMS Primary Care Provider: RAMÓN ASHTON MD [Primary Care Provider] - Follow up as needed Mode of Arrival: Stretcher Information source: Relative, Emergency Med Personnel Cannot obtain history due to: Altered mental status Notes: 65-year-old female arrived by EMS with chief complaint of acute mental status changes with 103 temperature. She had initial low sats per EMS was placed on facemask oxygen she was 85% while in room TR 2 23. After several minutes and Narcan IV patient has 97% saturations. He began to move much more easily after initial Narcan was received. It is noted that the patient is on OxyContin 10 mg Lopressor methotrexate Xanax and phentermine. She has a history of small cell lymphoma B type pneumonia rheumatoid arthritis foreign body i ngestion and she is followed by Dr. Casas. Nursing staff were in room taking care of patient for initial evaluation. A Salmeron was placed and she has already passed more than 500 mL of urine that is very dark and jordon-colored by 1245. I spoke with Cherelle her daughter at 1340 and she would like patient to be DNR and patient agrees. She also would like to be medical Proxy official but patient is too drowsy for this to occur. I spoke with another sister via Jennyfer the RN who is taking care of this patient and Ronan brother and Aide older sister is coming. There are no power of employee benefits attorney's at this time. The other sisters agree that patient is not a DNR however they are aware that she has bilateral "pneumonia and this can be treated." I did express the seriousness and bilateral pneumonia and life-threatening condition. They believe that Sister Cherelle Wray has been giving her too many medications "trying to help her out of this world." I spoke with Dr. Jordan around 1430 about this case as well. I spoke with Dr. Jean-Baptiste at 1240 and patient is on rituximab.. Side effect from this may include pulmonary infiltrates and PML hypoxia TRAVEL OUTSIDE OF THE [place] IN LAST 30 DAYS: No - HPI Patient complains to provider of: Difficulty standing, Difficulty walking, Speech Impairment, Weakness Onset: Other - x 4 days Awoke with symptoms: Yes Symptoms are: Worse/persistent Duration: Continues in ED, More than 3 hrs Quality of pain: No pain Severity: Moderate Pain Level: 2 Context: denies: Insect bite, Tick bite, Falling Loss of consciousness: Unsure, Prolonged (minutes) Was STROKE ALERT Called: No Baseline Cognitive: Alert but confused Baseline Gait: Walks w/o assistance - Last was walking and talking completely normally according to family members, Unknown Pre-existing weakness: No: Face, General, Hand, Lower extremity, Upper extremity Alert To: Deep Pain Patient Orientation: No: Person, Place, Time, Events - None until patient was given Narcan and Romazicon Character of altered mental status: Confused, Decreased responsiveness. No: Disoriented, Seizure activity, Trouble concentrating, Unchanged from baseline New weakness: General (diffuse) Altered sensation: General (diffuse) Decreased ability to stand/walk: Cannot stand Impaired speech/swallowing: Difficult Vision problem/glaucoma: No Associated symptoms: Fever, Short of breath. denies: Chest pain, Back pain, Chills, Dizzy, Falling injury, Fainting, Hurts to breathe, Involuntary movements , Nausea, Neck pain, Seizure, Sweaty, Vomiting Similar symptoms previously: No Recently seen / treated by doctor: No - Related Data Allergies/Adverse Reactions: adhesive tape Allergy (Intermediate, Verified 05/31/20 09:27) aspirin [Aspirin] Allergy (Unknown, Verified 05/31/20 09:27) Asthma phentermine Adverse Reaction (Verified 05/31/20 09:) aggression Past Medical History - General Information source: Relative, Emergency Med Personnel - Social History Smoking Status: Unknown if Ever Smoked Cigarette use (# per day): No - unk Chew tobacco use (# tins/day): No - unk Smoking Education Provided: No - unk Frequency of alcohol use: None Drug Abuse: None Lives with: Family Family History: Reviewed & Not Pertinent Patient has suicidal ideation: No Patient has homicidal ideation: No - Past Medical History Cardiac Medical History: Reports: Hx Coronary Artery Disease, Hx Hypercholesterolemia Denies: Hx Heart Attack, Hx Hypertension Pulmonary Medical History: Reports: Hx Asthma, Hx COPD, Hx Pneumonia Denies: Hx Bronchitis, Hx Tuberculosis Neurological Medical History: Denies: Hx Cerebrovascular Accident, Hx Seizures Renal/ Medical History: Denies: Hx Peritoneal Dialysis GI Medical History: Reports: Hx Endoscopy Musculoskeletal Medical History: Reports Hx Arthritis - RA, Reports Hx Musculoskeletal Deformity, Reports Hx Musculoskeletal Trauma Psychiatric Medical History: Reports: Hx Anxiety Traumatic Medical History: Reports: Hx Fractures - Right ankle right knee Past Surgical History: Reports: Hx Appendectomy, Hx Cholecystectomy, Hx Hysterectomy, Hx Orthopedic Surgery - Left knee replacement, Hx Tonsillectomy - Immunizations Hx Diphtheria, Pertussis, Tetanus Vaccination: No - UNSURE Hx Pneumococcal Vaccination: 11/25/11 Review of Systems - Review of Systems Constitutional: See HPI, Fever, Malaise, Weakness, Recent illness. denies: Chills, Diaphoresis, Weight gain, Weight loss EENT: See HPI, Throat pain Cardiovascular: See HPI, Heart racing, Orthopnea, Dyspnea Respiratory: No symptoms reported Gastrointestinal: No symptoms reported Genitourinary: No symptoms reported Female Genitourinary: No symptoms reported Musculoskeletal: No symptoms reported Skin: No symptoms reported Hematologic/Lymphatic: No symptoms reported Neurological/Psychological: See HPI, Confusion, Weakness -: Yes All other systems reviewed and negative Physical Exam - Vital signs Vitals: Pulse Ox 97 08/23/20 12:18 Interpretation: Tachycardic, Hypoxic, Tachypneic, Febrile - General General appearance: Lethargic - HEENT Head: Normocephalic, Atraumatic Eyes: Pale conjunctiva, Tears Pupils: PERRL Ears: Normal Mucous membranes: Dry Pharynx: Normal - Patent airway Neck: Normal - Respiratory Respiratory status: Respiratory distress, Labored Chest status: Nontender Breath sounds: Decreased air movement, Rales Chest palpation: Normal - Cardiovascular Rhythm: Tachycardia Heart sounds: Normal auscultation Murmur: No - Abdominal Inspection: Normal Distension: No distension Bowel sounds: Normal Tenderness: Nontender Organomegaly: No organomegaly - Rectal Tenderness: No Hemorrhoids: Other - Deferred - Genitourinary External exam: Normal - with female staff Bimanuel exam: Other - Deferred - Back Back: Normal, Nontender - Extremities General upper extremity: Normal inspection, Normal color, Normal ROM General lower extremity: Normal color, Normal ROM, Normal weight bearing, Other - s/p left TKR old scar. No: Gisele's sign - Neurological Neuro grossly intact: No Cognition: Confused Orientation: No: Disoriented to person, Disoriented to place, Disoriented to time, Disoriented to events Yoel Coma Scale Eye Opening: To Pain Yoel Coma Scale Verbal: Confused [place] Coma Scale Motor: Localizes to Pain Yoel Coma Scale Total: 11 Speech: Dysarthria Motor strength normal: LUE, RUE, LLE, RLE Sensory: Normal - Psychological Associated symptoms: Confused - Skin Skin Temperature: Warm Skin Moisture: Dry Skin Color: Pale Course - Vital Signs Vital signs: Temp Pulse Resp BP Pulse Ox 103.6 F H 21 H 106/59 L 96 08/23/20 17:45 08/23/20 17:07 08/23/20 17:07 08/23/20 17:07 - Laboratory Results Result Diagrams: 08/23/20 12:11 08/23/20 12:11 Laboratory Results Interpreted: 08/23/20 08/23/20 08/23/20 12:11 12:11 12:31 RDW 14.7 H Band Neutrophils % 6 H Monocytes % (Manual) 14 H ABG pH ABG pO2 ABG O2 Saturation Potassium 5.3 H BUN 26 H Glucose 128 H POC Glucose Direct Bilirubin 0.6 H AST 70 H ALT 75 H Alkaline Phosphatase 159 H Total Protein 6.0 L Albumin 3.2 L Urine Protein 30 H Urine Urobilinogen 2.0 H Urine Ascorbic Acid 20 H SARS-CoV-2 (PCR) 08/23/20 08/23/20 08/23/20 12:36 16:16 16:47 RDW Band Neutrophils % Monocytes % (Manual) ABG pH 7.34 L ABG pO2 66.9 L ABG O2 Saturation 92.2 L Potassium BUN Glucose POC Glucose 135 H Direct Bilirubin AST ALT Alkaline Phosphatase Total Protein Albumin Urine Protein Urine Urobilinogen Urine Ascorbic Acid SARS-CoV-2 (PCR) DETECTED H Critical Laboratory Results Reviewed: Yes Attending or Supervising Physician who Reviewed Labs: RAMÓN TSAI JR Radiology Results Radiology Results Interpreted: 08/23/20 14:[address] of head is normal and Dr. Holland read chest x-ray as bilateral upper lobe pneumonia Critical Radiology Results Reviewed: Yes Attending or Supervising Physician who Reviewed Radiology: RAMÓN TSAI JR EKG Interpretation by Me EKG shows normal: Sinus rhythm Rate: Tachycardia Rhythm: NSR - Sinus tachycardia at [address] elevation no ST depression with no obvious T wave inversion. This EKG was read by myself and I agree with machine readings. Critical Care Note - Critical Care Note Total time excluding time spent on procedures (mins): 90 - Because of family members talking with the sisters and brother Comments: I spoke with Cherelle Wray third sister as well as Aide and Ronan brother with Jennyfer the nurse taking care of patient. There is no power of employee benefits attorney. I spoke with Dr. Jordan at 1430 and he advised ABG. He will see the patient. This is after speaking with Alyssa ULLOA who is a leader for the group today. Discharge - Discharge Clinical Impression: Acute alteration in mental status, COVID-19 virus IgG antibody test result unknown, lymphoma on rituximab Fever Qualifiers: Fever type: unspecified Qualified Code(s): R50.9 - Fever, unspecified Pneumonia of both upper lobes Qualifiers: Pneumonia type: due to unspecified organism Qualified Code(s): J18.9 - Pneumonia, unspecified organism Small B-cell lymphoma Qualifiers: Lymphoma site: unspecified region Qualified Code(s): C83.00 - Small cell B-cell lymphoma, unspecified site Clinical Impression: (Ruled Out): COVID-19, Lesion of left lung, Lesion of right lung Condition: Serious Disposition: ADMITTED INPATIENT Admitting Provider: Julian (Hospitalist) Unit Admitted: [facility] Referrals: RAMÓN ASHTON MD [Primary Care Provider] - Follow up as needed
[2020-08-23 12:51] LABS: HEMATOCRIT 41.9 % (36.0-47.0); HEMOGLOBIN 14.3 g/dL (12.0-15.5); MEAN CORPUSCULAR HEMOGLOBIN 31.2 pg (27.0-33.4); MEAN CORPUSCULAR HGB CONC 34.2 g/dL (32.0-36.0); MEAN CORPUSCULAR VOLUME 91 fl (80-97); PLATELET COUNT 395 10^3/uL (150-450); RED BLOOD COUNT 4.59 10^6/uL (3.72-5.28); RED CELL DISTRIBUTION WIDTH 14.7 % (11.5-14.0)
[2020-08-23 12:56] LABS: ALBUMIN 3.2 g/dL (3.5-5.0); ALKALINE PHOSPHATASE 159 U/L (38-126); ANION GAP 12 (5-19); ASPARTATE AMINO TRANSFERASE 70 U/L (14-36); BILIRUBIN,DIRECT 0.6 mg/dL (0.0-0.4); BILIRUBIN,TOTAL 0.9 mg/dL (0.2-1.3); BLOOD UREA NITROGEN 26 mg/dL (7-20); CALCIUM 9.2 mg/dL (8.4-10.2); CARBON DIOXIDE 25 mmol/L (22-30); CHLORIDE 104 mmol/L (98-107); GLUCOSE 128 mg/dL (75-110)
[2020-08-23] MEDS ORDERED: DEXAMETHASONE SOD PHOS INJ 10 MG/1 ML VIAL IV ONE (12:58)
[2020-08-23] MEDS ORDERED: VANCOMYCIN HCL INJ 1000 MG VIAL IV ONE (12:58)
[2020-08-23 13:00] LABS: ALCOHOL < 10 mg/dL (NONE DETECTED); POTASSIUM 5.3 mmol/L (3.6-5.0)
[2020-08-23] MEDS ORDERED: FAMOTIDINE INJ/PF 20 MG/2 ML SDV IV ONE (13:04)
[2020-08-23 13:05] LABS: APPEARANCE,URINE SLIGHTLY-CLOUDY; BILIRUBIN,URINE NEGATIVE (NEGATIVE); GLUCOSE, URINE NEGATIVE (NEGATIVE); KETONES,URINE NEGATIVE (NEGATIVE); LEUKOCYTE ESTERASE,URINE NEGATIVE (NEGATIVE); NITRITE,URINE NEGATIVE (NEGATIVE); PROTEIN,URINE 30 mg/dL (NEGATIVE); URINE SPECIFIC GRAVITY 1.034
[2020-08-23 13:08] LABS: COLOR,URINE YELLOW
[2020-08-23] MEDS ORDERED: PIPERACILLIN/TAZOBACTAM 3.375 GM VIAL IV ONE (13:11)
[2020-08-23 13:19] LABS: URINE AMPHETAMINES SCREEN NEGATIVE; URINE BARBITURATES SCREEN NEGATIVE; URINE COCAINE SCREEN NEGATIVE; URINE MARIJUANA (THC) SCREEN NEGATIVE; URINE METHADONE SCREEN NEGATIVE; URINE PHENCYCLIDINE SCREEN NEGATIVE
[2020-08-23 13:24] LABS: URINE BENZODIAZEPINES SCREEN UNCONFIRMED POSITIVE
--- NOTE | 2020-08-23 13:24 | RADIOLOGY REPORT (SQ) ---
EXAM DESCRIPTION: CT HEAD WITHOUT IMAGES COMPLETED DATE/TIME: 08/23/2020 1:03 pm REASON FOR STUDY: loc change COMPARISON: None. TECHNIQUE: Axial images acquired through the brain without intravenous contrast. Images reviewed wi th bone, brain and subdural windows. Additional sagittal and coronal reconstructions were generated. Images stored on PACS. All CT scanners at this facility use dose modulation, iterative reconstruction, and/or weight based d osing when appropriate to reduce radiation dose to as low as reasonably achievable (ALARA). [facility]: Dose Right [facility]: CareDose [facility]: Dose Right [facility]: Teradose 4D [facility]: Smart Waste2Tricity RADIATION DOSE: CT Rad equipment meets quality standard of care and radiation dose reduction techniq ues were employed. CTDIvol: 53.2 mGy. DLP: 1044 mGy-cm. mGy. LIMITATIONS: None. FINDINGS: VENTRICLES: Normal size and contour. CEREBRUM: No masses. No hemorrhage. No midline shift. No evidence for acute infarction. Normal gra y/white matter differentiation. No areas of low density in the white matter. CEREBELLUM: No masses. No hemorrhage. No alteration of density. No evidence for acute infarction. EXTRAAXIAL SPACES: No fluid collections. No masses. ORBITS AND GLOBE: No intra- or extraconal masses. Normal contour of globe without masses. CALVARIUM: No fracture. PARANASAL SINUSES: Mucosal thickening in scattered fluid levels are seen involving predominantly the right maxillary and bilateral sphenoid compartment. SOFT TISSUES: No mass or hematoma. OTHER: No other significant finding. IMPRESSION: Normal noncontrast CT appearance of the brain. Incidental finding of paranasal sinusiti s. EVIDENCE OF ACUTE STROKE: NO. COMMENT: Quality ID # [id number]: Final reports with documentation of one or more dose reduction techniques (e.g., Automated exposure control, adjustment of the mA and/or kV according to patient size, use of iterative reconstruction technique) TECHNICAL DOCUMENTATION: JOB ID: [id number] 2010 [employer]- All Rights Reserved Reading location - IP/workstation name: [email or web address]
[2020-08-23 13:27] LABS: ABSOLUTE LYMPHOCYTES# (MANUAL) 1.8 10^3/uL (0.5-4.7); ABSOLUTE MONOCYTES # (MANUAL) 0.8 10^3/uL (0.1-1.4); ANISOCYTOSIS SLIGHT; BAND NEUTROPHILS % (MANUAL) 6 % (3-5); BASOPHILS % (MANUAL) 0 % (0-2); EOSINOPHILS % (MANUAL) 0 % (0-6); LYMPHOCYTES % (MANUAL) 30 % (13-45); MONOCYTES % (MANUAL) 14 % (3-13); OVALOCYTES SLIGHT; PLATELET COMMENT ADEQUATE; SEGMENTED NEUTROPHILS % (MAN) 50 % (42-78); TOTAL CELLS COUNTED 100; TOXIC GRANULATION SLIGHT; TOXIC VACUOLATION PRESENT
[2020-08-23 13:28] LABS: PLATELET CLUMPS PRESENT
--- NOTE | 2020-08-23 13:32 | RADIOLOGY REPORT (SQ) ---
EXAM DESCRIPTION: CHEST SINGLE VIEW IMAGES COMPLETED DATE/TIME: 08/23/2020 1:07 pm REASON FOR STUDY: loc change COMPARISON: 05/31/2020 NUMBER OF VIEWS: One view. TECHNIQUE: Single frontal radiographic image of the chest acquired. LIMITATIONS: None. FINDINGS: LUNGS AND PLEURA: Segmental airspace disease in both upper lobes. No significant pleural fluid. MEDIASTINUM AND HEART: Stable heart size and mediastinal structures. BONY STRUCTURES: No acute findings. HARDWARE: None. OTHER: No other significant finding. IMPRESSION: Bilateral upper lobe pneumonia. TECHNICAL DOCUMENTATION: JOB ID: [id number] Reading location - IP/workstation name: [email or web address]
--- NOTE | 2020-08-23 16:10 | EKG REPORT ---
SEVERITY:- BORDERLINE ECG - SINUS TACHYCARDIA BORDERLINE T ABNORMALITIES, DIFFUSE LEADS : Confirmed by: Shahzad Rodrigez MD 23-Aug-2020 16:10:13
[2020-08-23] MEDS ORDERED: ACETAMINOPHEN 325 MG TABLET PO PRN (16:13)
[2020-08-23] MEDS ORDERED: ACETAMINOPHEN 325 MG SUPP.RECT PR PRN (16:21)
[2020-08-23] MEDS ORDERED: NORMAL SALINE 500 ML with NALOXONE HCL 2 MG IV PRN ×4 (16:22→16:28)
[2020-08-23 16:26] LABS: ARTERIAL BLOOD BASE EXCESS -3.5 mmol/L; ARTERIAL BLOOD H2CO3 1.27 mmol/L (1.05-1.35); ARTERIAL BLOOD HCO3 22.2 mmol/L (20-24); ARTERIAL BLOOD O2 SATURATION 92.2 % (94-98); ARTERIAL BLOOD PCO2 42.3 mmHg (35-45); ARTERIAL BLOOD PH 7.34 (7.35-7.45); ARTERIAL BLOOD PO2 66.9 mmHg (80-100); ARTERIAL BLOOD TOTAL CO2 23.5 mmol/L (21-25)
[2020-08-23 16:27] LABS: ARTERIAL BLOOD FIO2 6L
[2020-08-23] MEDS ORDERED: ONDANSETRON HCL INJ/PF 4 MG/2 ML SDV IV PRN (17:03)
--- NOTE | 2020-08-23 17:12 | PDOC H&P ---
History of Present Illness Admission Date/PCP: RAMÓN ASHTON MD Patient complains of: ams History of Present Illness: DORINA BALDWIN is a 65 year old female with cancer, RA, COPD, CAD, brought to the hospital via EMS on request of her daughter due to low pulse oximetry in the 50s. Patient's daughter had called the EMS last night. She was stabilized. This monring patient became SOB and low oxygen levels and also altered. Patient did not complain of any chest pain at any point but was hard to arouse. Patient takes oxycodone and benzos at home. Her mental status improved with narcan x2 in the ER but later became altered again. Also recevived a dose of Flumezanil in the ER also with remarkable improvement. However at the time of encounter, patient is very much altered again. Noted to be febrile in ER as well with PNA. Past Medical History Cardiac Medical History: Reports: Coronary Artery Disease, Hyperlipidema Denies: Myocardial Infarction, Hypertension Pulmonary Medical History: Reports: Asthma, Chronic Obstructive Pulmonary Disease (COPD), Pneumonia Denies: Bronchitis, Tuberculosis Neurological Medical History: Denies: Seizures Musculoskeltal Medical History: Reports: Arthritis - RA Hematology: Denies: Anemia Past Surgical History Past Surgical History: Reports: Appendectomy, Cholecystectomy, Hysterectomy, Orthopedic Surgery - Left knee replacement, Tonsillectomy Social History Lives with: Family Smoking Status: Current Every Day Smoker Frequency of Alcohol Use: None Hx Recreational Drug Use: No Hx Prescription Drug Abuse: No - Advance Directive Resuscitation Status: Do Not Resuscitate Family History Family History: Hypertension Parental Family History Reviewed: Yes Children Family History Reviewed: Yes Sibling(s) Family History Reviewed.: Yes Medication/Allergy Home Medications: Methotrexate Sodium [Methotrexate] 8 tab PO Q7D 12/29/12 Alprazolam 1 mg PO BID 05/30/20 Folic Acid 1 mg PO QPM 05/30/20 Nitroglycerin 0.3 mg PO ASDIR PRN 05/30/20 Phentermine HCl 37.5 mg PO DAILY 05/30/20 Diphenhydramine HCl [Benadryl] 1 cap PO PRN PRN 05/31/20 Metoprolol Tartrate [Lopressor 25 mg Tablet] 12.5 mg PO BID 05/31/20 Oxycodone HCl [Oxycontin Sr 10 mg Tablet] 10 mg PO Q12 05/31/20 Allergies/Adverse Reactions: adhesive tape Allergy (Intermediate, Verified 05/31/20 09:27) aspirin [Aspirin] Allergy (Unknown, Verified 05/31/20 09:27) Asthma phentermine Adverse Reaction (Verified 05/31/20 09:27) aggression Review of Systems ROS unobtainable: Due to mental status Physical Exam Vital Signs: Temp Pulse Resp BP Pulse Ox 97 08/23/20 12:18 Intake & Output 08/22/20 08/23/20 08/24/20 06:59 06:59 06:59 Intake Total 351 Balance 351 Eye exam: PRESENT: other - pupils are 2-3mm reactive and symmetric Mouth exam: PRESENT: neck supple Neck exam: ABSENT: JVD, tracheal deviation Respiratory exam: PRESENT: symmetrical, unlabored. ABSENT: accessory muscle use, retraction, tachypnea, wheezes Cardiovascular exam: PRESENT: RRR, +S1, +S2. ABSENT: tachycardia GI/Abdominal exam: PRESENT: soft. ABSENT: rebound, rigid, tenderness Extremities exam: ABSENT: calf tenderness, pedal edema Neurological exam: PRESENT: altered - lethargic, oriented to person. ABSENT: alert, oriented to place, oriented to time, oriented to situation Psychiatric exam: ABSENT: agitated, anxious Focused psych exam: ABSENT: pressured speech Skin exam: ABSENT: jaundice Results Laboratory Results: 08/23/20 12:11 08/23/20 12:11 08/23/20 08/23/20 08/23/20 12:11 12:11 12:31 WBC 6.0 RBC 4.59 Hgb 14.3 Hct 41.9 MCV 91 MCH 31.2 MCHC 34.2 RDW 14.7 H Plt Count 395 Seg Neutrophils % Not Reportable Carbonic Acid HCO3/H2CO3 Ratio ABG pH ABG pCO2 ABG pO2 ABG HCO3 ABG O2 Saturation ABG Base Excess FiO2 Sodium 140.7 Potassium 5.3 H Chloride 104 Carbon Dioxide 25 Anion Gap 12 BUN 26 H Creatinine 0.92 Est GFR ( Amer) > 60 Glucose 128 H Calcium 9.2 Magnesium 2.2 Total Bilirubin 0.9 AST 70 H Alkaline Phosphatase 159 H Total Protein 6.0 L Albumin 3.2 L Urine Color YELLOW Urine Appearance SLIGHTLY-CLOUDY Urine pH 5.0 Ur Specific [place] 1.034 Urine Protein 30 H Urine Glucose (UA) NEGATIVE Urine Ketones NEGATIVE Urine Blood NEGATIVE Urine Nitrite NEGATIVE Ur Leukocyte Esterase NEGATIVE Urine WBC (Auto) 2 Urine RBC (Auto) 13 08/23/20 16:16 WBC RBC Hgb Hct MCV MCH MCHC RDW Plt Count Seg Neutrophils % Carbonic Acid 1.27 HCO3/H2CO3 Ratio 17:1 ABG pH 7.34 L ABG pCO2 42.3 ABG pO2 66.9 L ABG HCO3 22.2 ABG O2 Saturation 92.2 L ABG Base Excess -3.5 FiO2 6L Sodium Potassium Chloride Carbon Dioxide Anion Gap BUN Creatinine Est GFR ( Amer) Glucose Calcium Magnesium Total Bilirubin AST Alkaline Phosphatase Total Protein Albumin Urine Color Urine Appearance Urine pH Ur Specific [place] Urine Protein Urine Glucose (UA) Urine Ketones Urine Blood Urine Nitrite Ur Leukocyte Esterase Urine WBC (Auto) Urine RBC (Auto) 08/23/20 12:11 Creatine Kinase 132 Impressions: Chest X-Ray 08/23/20 12:36 IMPRESSION: Bilateral upper lobe pneumonia. Head CT 08/23/20 12:36 IMPRESSION: Normal noncontrast CT appearance of the brain. Incidental finding of paranasal sinusitis. EVIDENCE OF ACUTE STROKE: NO. Assessment and Plan - Diagnosis (1) Toxic encephalopathy Is this a current diagnosis for this admission?: Yes Plan: Head CT is unremarkable. Seems to have responded to Narcan and flumezanil in ER Patient's eldest sister Aide [[phone]] expressed concerns that their sister Cherelle who lives with patient is giving her way too much narcotics. Will start patient on a Narcan drip and keep patient in the ER for a few hours until patient can come off Narcan drip. (2) Pneumonia of both upper lobes Qualifiers: Pneumonia type: due to unspecified organism Qualified Code(s): J18.9 - Pneumonia, unspecified organism Is this a current diagnosis for this admission?: Yes Plan: Patient is febrile with bilateral pneumonia on chest imaging. Patient's daughter Aide does tell me that patient's older daughter Cherelle tested positive for Covid 2 weeks ago. We will check a Covid test Start zinc and vitamin supplements Start broad-spectrum antibiotics with cefepime and azithromycin Patient already received Vanco and Zosyn in the ER Based off Covid test result, will determine need to initiate IV steroids and remdesivir (3) Acute respiratory failure with hypoxia Is this a current diagnosis for this admission?: Yes Plan: Currently on 3 to 4 L nasal cannula. Will monitor. (4) Small B-cell lymphoma Is this a current diagnosis for this admission?: Yes Plan: receiving outpatient chemo with Dr. Casas (5) Fever Qualifiers: Fever type: unspecified Qualified Code(s): R50.9 - Fever, unspecified Is this a current diagnosis for this admission?: Yes (6) Rheumatoid arthritis Is this a current diagnosis for this admission?: Yes - Time Time Spent with patient: 35 or more minutes Anticipated Discharge Disposition: Home with Home Health Anticipated Discharge Timeframe: within 72 hours
--- NOTE | 2020-08-23 17:14 | ADVANCED CARE ---
- Diagnosis (1) Toxic encephalopathy Diagnosis Current: Yes (2) Pneumonia of both upper lobes Diagnosis Current: Yes (3) Acute respiratory failure with hypoxia Diagnosis Current: Yes Resuscitation Status: Do Not Resuscitate Discussion: I spoke with both of patient's daughters Cherelle as well as Aide. They want to continue treatment as planned. They do want her to be DNR/DNI. Also they both do not want intubation even in the absence of cardiac arrest and states that if it ever got as bad as requiring intubation, the patient should be made comfort care and they be notified. Time Spent: 25mins
[2020-08-23] MEDS ORDERED: AZITHROMYCIN 250 MG in DEXTROSE 5%-WATER 250 ML IV SCH ×4 (18:00)
[2020-08-23] MEDS ORDERED: ENOXAPARIN SODIUM INJ 40 MG/0.4 ML DISP.SYRIN SUBCUT SCH (18:00)
[2020-08-23] MEDS ORDERED: NITROGLYCERIN 0.4 MG/TAB 25 TAB/BOTTLE SL PRN (18:59)
[2020-08-23] MEDS ORDERED: AZITHROMYCIN 500 MG in DEXTROSE 5%-WATER 250 ML IV ONE (19:00)
[2020-08-23] MEDS ORDERED: AZITHROMYCIN 500 MG in DEXTROSE 5%-WATER 250 ML IV SCH (19:00)
[2020-08-23] MEDS ORDERED: AZITHROMYCIN INJ 500 MG VIAL IV ONE (19:33)
[2020-08-23] MEDS: ASCORBIC ACID 500 MG TABLET PO SCH (19:41)
[2020-08-23] MEDS: NORMAL SALINE 1000 ML 1,000 ML IV PRN (20:01)
[2020-08-23] MEDS ORDERED: NALOXONE HCL INJ 2 MG/2 ML DISP.SYRIN ONE (21:50)
[2020-08-23] MEDS ORDERED: CEFEPIME 2 GM/D5W RTU 2 GM/50 ML RTUPB IV SCH (22:00)
[2020-08-23] MEDS ORDERED: ACETAMINOPHEN 1,000 MG/100 ML RTUPB IV ONE (22:30)
[2020-08-23] MEDS: FAMOTIDINE INJ/PF 20 MG/2 ML SDV IV SCH (22:56)
[2020-08-24 05:05] LABS: HEMOGLOBIN 13.1 g/dL (12.0-15.5); MEAN CORPUSCULAR HEMOGLOBIN 31.2 pg (27.0-33.4); MEAN CORPUSCULAR HGB CONC 34.3 g/dL (32.0-36.0); MEAN CORPUSCULAR VOLUME 91 fl (80-97); PLATELET COUNT 313 10^3/uL (150-450); RED BLOOD COUNT 4.19 10^6/uL (3.72-5.28); RED CELL DISTRIBUTION WIDTH 14.5 % (11.5-14.0); WHITE BLOOD COUNT 8.5 10^3/uL (4.0-10.5)
[2020-08-24] MEDS: NORMAL SALINE 1000 ML 1,000 ML IV PRN ×2 (05:27→10:00)
[2020-08-24 05:47] LABS: ALBUMIN 2.6 g/dL (3.5-5.0); ALKALINE PHOSPHATASE 109 U/L (38-126); ANION GAP 9 (5-19); ASPARTATE AMINO TRANSFERASE 72 U/L (14-36); BILIRUBIN,DIRECT 0.4 mg/dL (0.0-0.4); BILIRUBIN,TOTAL 0.7 mg/dL (0.2-1.3); BLOOD UREA NITROGEN 24 mg/dL (7-20); CALCIUM 8.6 mg/dL (8.4-10.2); CARBON DIOXIDE 22 mmol/L (22-30); CHLORIDE 111 mmol/L (98-107); GLUCOSE 132 mg/dL (75-110); POTASSIUM 4.5 mmol/L (3.6-5.0); TOTAL PROTEIN 5.3 g/dL (6.3-8.2)
[2020-08-24 06:20] LABS: C-REACTIVE PROTEIN 405.1 mg/L (<10.0)
[2020-08-24] MEDS ORDERED: CEFEPIME HCL 2 GM in DEXTROSE 5%-WATER 50 ML IV SCH (10:00)
[2020-08-24] MEDS ORDERED: REMDESIVIR 200 MG in NORMAL SALINE 250 ML IV ONE (10:00)
[2020-08-24 11:35] LABS: VENOUS BLOOD BASE EXCESS -4.4 mmol/L; VENOUS BLOOD HCO3 20.3 mmol/L (20-32); VENOUS BLOOD PCO2 36.2 mmHg (35-63); VENOUS BLOOD PH 7.37 (7.30-7.42)
[2020-08-24] MEDS: ZINC SULFATE 220 MG CAPSULE PO SCH (12:23)
[2020-08-24] MEDS: ASCORBIC ACID 500 MG TABLET PO SCH ×2 (12:23→18:18)
[2020-08-24] MEDS: FOLIC ACID 1 MG TABLET PO SCH (12:23)
[2020-08-24] MEDS: CHOLECALCIFEROL (D3) 1,000 UNIT (25 MCG) TABLET PO SCH (12:23)
[2020-08-24] MEDS: IVERMECTIN 3 MG TABLET PO SCH (12:23)
[2020-08-24] MEDS: ENOXAPARIN SODIUM INJ 40 MG/0.4 ML DISP.SYRIN SUBCUT SCH ×2 (12:28→21:14)
[2020-08-24] MEDS: DEXAMETHASONE SOD PHOSPHATE INJ 4 MG/1 ML VIAL IV SCH ×2 (12:29→21:15)
[2020-08-24] MEDS: FAMOTIDINE INJ/PF 20 MG/2 ML SDV IV SCH ×2 (12:29→21:15)
[2020-08-24] MEDS ORDERED: CEFEPIME 2 GM/D5W RTU 2 GM/50 ML RTUPB IV SCH (13:00)
--- NOTE | 2020-08-24 13:45 | PDOC PROGRESS REPORT ---
Subjective Date:: 08/24/20 Subjective:: Patient still lethargic and not communicative. Narcan drip Reason For Visit: ACUTE ALTERATION IN MENTAL STATUS,FEVER,PNUEMONIA Physical Exam Vital Signs: Temp Pulse Resp BP Pulse Ox 97.6 F 85 24 H 111/66 97 08/24/20 03:24 08/24/20 07:00 08/24/20 03:24 08/24/20 03:24 08/24/20 03:24 Pulse Oximeter Continuous Start: 08/23/20 16:15 Freq: RTQ4 Status: Hold Protocol: Document 08/24/20 01:15 DBE (Rec: 08/24/20 01:28 DBE [id number]) Pulse Oximetry Assessment Equipment Usage Equipment Standby Continuous SpO2 Machine # XX Additional RT Notes Other MONITORING ON NURSES MONITOR DUE A PT BEING COVID + 08/24/20 01:16 Respiratory Care Notes by ISRISHA SANDOVAL MONITORING ON NURSES MONITOR DUE A PT BEING COVID + Initialized on 08/24/20 01:16 - END OF NOTE Intake & Output 08/23/20 08/24/20 08/25/20 06:59 06:59 06:59 Intake Total 1946 Output Total 620 Balance 1326 Weight 74.5 kg General appearance: PRESENT: no acute distress, thin. ABSENT: cooperative, obese Eye exam: PRESENT: PERRLA - 3-4mm b/l Neck exam: ABSENT: JVD Respiratory exam: PRESENT: symmetrical, tachypnea, unlabored. ABSENT: accessory muscle use, retraction, wheezes Cardiovascular exam: PRESENT: +S1, +S2. ABSENT: tachycardia GI/Abdominal exam: PRESENT: soft. ABSENT: rebound, rigid, tenderness Neurological exam: PRESENT: altered - lethargic and not communicative. Eyes open easily to pain stimulus Psychiatric exam: ABSENT: agitated, anxious Focused psych exam: ABSENT: pressured speech Skin exam: ABSENT: jaundice Results Laboratory Results: 08/24/20 04:45 08/24/20 04:45 08/23/20 08/23/20 08/24/20 12:11 16:16 04:45 WBC 6.0 8.5 RBC 4.59 4.19 Hgb 14.3 13.1 Hct 41.9 38.0 MCV 91 91 MCH 31.2 31.2 MCHC 34.2 34.3 RDW 14.7 H 14.5 H Plt Count 395 313 Seg Neutrophils % Not Reportable Carbonic Acid 1.27 HCO3/H2CO3 Ratio 17:1 ABG pH 7.34 L ABG pCO2 42.3 ABG pO2 66.9 L ABG HCO3 22.2 ABG O2 Saturation 92.2 L ABG Base Excess -3.5 VBG pH VBG pCO2 VBG HCO3 VBG Base Excess FiO2 6L Sodium Potassium Chloride Carbon Dioxide Anion Gap BUN Creatinine Est GFR ( Amer) Glucose Lactic Acid Calcium Ferritin Total Bilirubin AST Alkaline Phosphatase Ammonia C-Reactive Protein Total Protein Albumin 08/24/20 08/24/20 08/24/20 04:45 11:08 11:08 WBC RBC Hgb Hct MCV MCH MCHC RDW Plt Count Seg Neutrophils % Carbonic Acid HCO3/H2CO3 Ratio ABG pH ABG pCO2 ABG pO2 ABG HCO3 ABG O2 Saturation ABG Base Excess VBG pH 7.37 VBG pCO2 36.2 VBG HCO3 20.3 VBG Base Excess -4.4 FiO2 Sodium 141.5 Potassium 4.5 Chloride 111 H Carbon Dioxide 22 Anion Gap 9 BUN 24 H Creatinine 0.49 L Est GFR ( Amer) > 60 Glucose 132 H Lactic Acid Calcium 8.6 Ferritin 926.00 H Total Bilirubin 0.7 AST 72 H Alkaline Phosphatase 109 Ammonia 26.4 C-Reactive Protein 405.1 H Total Protein 5.3 L Albumin 2.6 L 08/24/20 11:08 WBC RBC Hgb Hct MCV MCH MCHC RDW Plt Count Seg Neutrophils % Carbonic Acid HCO3/H2CO3 Ratio ABG pH ABG pCO2 ABG pO2 ABG HCO3 ABG O2 Saturation ABG Base Excess VBG pH VBG pCO2 VBG HCO3 VBG Base Excess FiO2 Sodium Potassium Chloride Carbon Dioxide Anion Gap BUN Creatinine Est GFR ( Amer) Glucose Lactic Acid 1.0 Calcium Ferritin Total Bilirubin AST Alkaline Phosphatase Ammonia C-Reactive Protein Total Protein Albumin 08/23/20 08/23/20 12:11 12:11 Creatine Kinase 132 Troponin I < 0.012 Impressions: Chest X-Ray 08/23/20 12:36 IMPRESSION: Bilateral upper lobe pneumonia. Head CT 08/23/20 12:36 IMPRESSION: Normal noncontrast CT appearance of the brain. Incidental finding of paranasal sinusitis. EVIDENCE OF ACUTE STROKE: NO. Assessment and Plan - Diagnosis (1) Toxic metabolic encephalopathy Is this a current diagnosis for this admission?: Yes Plan: Head CT is unremarkable. Ammonia negative. No CO2 retention on blood gas. Ddx: Toxic encephalopathy from Narcotic overdose or Viral Encephalitis Discussed with Dr. Moya who informs me that there has not been any suspicion for brain mets and that her B cell lymphoma doesn't often spread to the brain. So I will defer MRI for now except if she doesn't come around. Narcan gtt was stopped last night. Pupils are no longer pinpoint but she remains lethargic. Securing airway. DNR/DNI status. Will give sometime for the narcs to get out of her system. Family updated of her conditions. (2) Pneumonia due to COVID-19 virus Is this a current diagnosis for this admission?: Yes Plan: COVID test came back positive Remdesivir Ivermectin Dexamethasone day 2 Also on Abx with Cefepime & azithromycin as she is immunocompromised. (3) Acute respiratory failure with hypoxia Is this a current diagnosis for this admission?: Yes Plan: currently on simple face mask on 6-8L. (4) Small B-cell lymphoma Qualifiers: Lymphoma site: unspecified region Qualified Code(s): C83.00 - Small cell B- cell lymphoma, unspecified site Is this a current diagnosis for this admission?: Yes Plan: receiving outpatient chemo Rituxin with Dr. Casas. Her immunocompromized state puts her at risk of poor outcome with COVID. (5) Fever Qualifiers: Fever type: unspecified Qualified Code(s): R50.9 - Fever, unspecified Is this a current diagnosis for this admission?: Yes (6) Rheumatoid arthritis Is this a current diagnosis for this admission?: Yes - Time Time Spent with patient: 25-34 minutes Anticipated Discharge Disposition: snf vs Anticipated Discharge Timeframe: unknown
[2020-08-24] MEDS: CEFEPIME HCL 2 GM in DEXTROSE 5%-WATER 50 ML IV SCH ×2 (15:07→21:13)
[2020-08-24] MEDS ORDERED: AZITHROMYCIN 250 MG in DEXTROSE 5%-WATER 250 ML IV SCH (18:00)
[2020-08-24] MEDS: AZITHROMYCIN 250 MG in DEXTROSE 5%-WATER 250 ML IV SCH (18:20)
[2020-08-25] MEDS: NORMAL SALINE 1000 ML 1,000 ML IV PRN (01:40)
[2020-08-25 05:03] LABS: ABSOLUTE LYMPHOCYTES (AUTO) 1.2 10^3/uL (0.5-4.7); ABSOLUTE MONOCYTES (AUTO) 0.1 10^3/uL (0.1-1.4); ABSOLUTE NEUT (AUTO) 7.9 10^3/uL (1.7-8.2); BASOPHILS % (AUTO) 0.1 % (0-2); HEMATOCRIT 34.1 % (36.0-47.0); HEMOGLOBIN 11.8 g/dL (12.0-15.5); LYMPHOCYTES % (AUTO) 13.4 % (13-45); MEAN CORPUSCULAR HEMOGLOBIN 31.1 pg (27.0-33.4); MEAN CORPUSCULAR HGB CONC 34.5 g/dL (32.0-36.0); MEAN CORPUSCULAR VOLUME 90 fl (80-97); MONOCYTES % (AUTO) 1.5 % (3-13); PLATELET COUNT 358 10^3/uL (150-450); RED BLOOD COUNT 3.78 10^6/uL (3.72-5.28); RED CELL DISTRIBUTION WIDTH 14.5 % (11.5-14.0); TOTAL CELLS COUNTED % (AUTO) 100 %; WHITE BLOOD COUNT 9.3 10^3/uL (4.0-10.5)
[2020-08-25 05:18] LABS: PROTHROMBIN TIME 15.4 SEC (11.4-15.4)
[2020-08-25 05:19] LABS: PARTIAL THROMBOPLASTIN TIME 36.9 SEC (23.5-35.8)
[2020-08-25 05:30] LABS: ALBUMIN 2.3 g/dL (3.5-5.0); ALKALINE PHOSPHATASE 101 U/L (38-126); ANION GAP 11 (5-19); ASPARTATE AMINO TRANSFERASE 60 U/L (14-36); BILIRUBIN,DIRECT 0.3 mg/dL (0.0-0.4); BILIRUBIN,TOTAL 0.6 mg/dL (0.2-1.3); BLOOD UREA NITROGEN 19 mg/dL (7-20); CALCIUM 8.6 mg/dL (8.4-10.2); CARBON DIOXIDE 19 mmol/L (22-30); CHLORIDE 117 mmol/L (98-107); GLUCOSE 115 mg/dL (75-110); POTASSIUM 4.2 mmol/L (3.6-5.0); TOTAL PROTEIN 4.7 g/dL (6.3-8.2)
[2020-08-25 06:18] LABS: C-REACTIVE PROTEIN 294.4 mg/L (<10.0)
[2020-08-25] MEDS ORDERED: 1/2 NORMAL SALINE 1,000 ML IV PRN (08:11)
[2020-08-25] MEDS: CEFEPIME HCL 2 GM in DEXTROSE 5%-WATER 50 ML IV SCH ×2 (09:46→21:58)
[2020-08-25] MEDS: ENOXAPARIN SODIUM INJ 40 MG/0.4 ML DISP.SYRIN SUBCUT SCH (09:47)
[2020-08-25] MEDS: FAMOTIDINE INJ/PF 20 MG/2 ML SDV IV SCH ×2 (09:48→21:58)
[2020-08-25] MEDS: DEXAMETHASONE SOD PHOSPHATE INJ 4 MG/1 ML VIAL IV SCH ×2 (09:48→21:58)
[2020-08-25] MEDS: FOLIC ACID 1 MG TABLET PO SCH (09:48)
[2020-08-25] MEDS: ASCORBIC ACID 500 MG TABLET PO SCH ×2 (09:50→17:32)
[2020-08-25] MEDS: CHOLECALCIFEROL (D3) 1,000 UNIT (25 MCG) TABLET PO SCH (09:50)
[2020-08-25] MEDS: ZINC SULFATE 220 MG CAPSULE PO SCH (09:50)
--- NOTE | 2020-08-25 11:55 | PDOC PROGRESS REPORT ---
Subjective Date:: 08/25/20 Subjective:: Patient is still altered Reason For Visit: ACUTE ALTERATION IN MENTAL STATUS,FEVER,PNUEMONIA Physical Exam Vital Signs: Temp Pulse Resp BP Pulse Ox 99.5 F 105 H 21 H 112/47 L 92 08/25/20 08:06 08/25/20 08:06 08/25/20 08:06 08/25/20 08:06 08/25/20 08:06 Pulse Oximeter Continuous Start: 08/23/20 16:15 Freq: RTQ4 Status: Hold Protocol: Document 08/24/20 01:15 DBE (Rec: 08/24/20 01:28 DBE [id number]) Pulse Oximetry Assessment Equipment Usage Equipment Standby Continuous SpO2 Machine # XX Additional RT Notes Other MONITORING ON NURSES MONITOR DUE A PT BEING COVID + 08/24/20 01:16 Respiratory Care Notes by SIRISHA SANDOVAL MONITORING ON NURSES MONITOR DUE A PT BEING COVID + Initialized on 08/24/20 01:16 - END OF NOTE Intake & Output 08/24/20 08/25/20 08/26/20 06:59 06:59 06:59 Intake Total 1946 1500 Output Total 620 525 Balance 1326 975 Weight 74.5 kg 81 kg General appearance: PRESENT: other Eye exam: PRESENT: PERRLA Respiratory exam: PRESENT: crackles - mild, symmetrical, tachypnea - mild, unlabored. ABSENT: rhonchi, stridor, wheezes Cardiovascular exam: PRESENT: RRR, +S1, +S2. ABSENT: tachycardia GI/Abdominal exam: PRESENT: soft. ABSENT: rebound, rigid, tenderness Neurological exam: PRESENT: altered - Obtunded GCS T9 e2 v2 m5. ABSENT: alert, awake, oriented to person, oriented to place, oriented to time Psychiatric exam: ABSENT: agitated, anxious Results Laboratory Results: 08/25/20 04:29 08/25/20 04:29 08/24/20 08/24/20 08/24/20 11:08 11:08 11:08 WBC RBC Hgb Hct MCV MCH MCHC RDW Plt Count Seg Neutrophils % VBG pH 7.37 VBG pCO2 36.2 VBG HCO3 20.3 VBG Base Excess -4.4 Sodium Potassium Chloride Carbon Dioxide Anion Gap BUN Creatinine Est GFR ( Amer) Glucose Lactic Acid 1.0 Calcium Magnesium Ferritin Total Bilirubin AST Alkaline Phosphatase Ammonia 26.4 C-Reactive Protein Total Protein Albumin 08/25/20 08/25/20 04:29 04:29 WBC 9.3 RBC 3.78 Hgb 11.8 L Hct 34.1 L MCV 90 MCH 31.1 MCHC 34.5 RDW 14.5 H Plt Count 358 Seg Neutrophils % 85.0 H VBG pH VBG pCO2 VBG HCO3 VBG Base Excess Sodium 147.1 H Potassium 4.2 Chloride 117 H Carbon Dioxide 19 L Anion Gap 11 BUN 19 Creatinine 0.51 L Est GFR ( Amer) > 60 Glucose 115 H Lactic Acid Calcium 8.6 Magnesium 2.1 Ferritin 830.00 H Total Bilirubin 0.6 AST 60 H Alkaline Phosphatase 101 Ammonia C-Reactive Protein 294.4 H Total Protein 4.7 L Albumin 2.3 L 08/23/20 08/23/20 12:11 12:11 Creatine Kinase 132 Troponin I < 0.012 Impressions: Chest X-Ray 08/23/20 12:36 IMPRESSION: Bilateral upper lobe pneumonia. Head CT 08/23/20 12:36 IMPRESSION: Normal noncontrast CT appearance of the brain. Incidental finding of paranasal sinusitis. EVIDENCE OF ACUTE STROKE: NO. Assessment and Plan - Diagnosis (1) Acute metabolic encephalopathy Is this a current diagnosis for this admission?: Yes Plan: Despite initial response to Narcan and Flumazenil pushes in ER and being off any Narcs since admission, patient remains obtunded w/ GCS T9 [id number]. Ddx now more likely Viral Encephalitis or CVA. Likely toxic encephalopathy from narcotic overdose played a role here but is clearly not entirely responsible. Check MRI Brain w&w/o. If negative, will check LP. Discussed with Dr. Moya who informs me that there has not been any suspicion for brain mets and that her B cell lymphoma doesn't often spread to the brain. DNR/DNI status. Grim prognosis. Family updated of her conditions and Aide consents to MRI and LP if needed. (2) Pneumonia due to COVID-19 virus Is this a current diagnosis for this admission?: Yes Plan: COVID test came back positive Remdesivir Ivermectin Dexamethasone day 3 Also on Abx with Cefepime & azithromycin as she is immunocompromised. (3) Acute respiratory failure with hypoxia Is this a current diagnosis for this admission?: Yes Plan: currently on simple face mask on 6L. (4) Small B-cell lymphoma Qualifiers: Lymphoma site: unspecified region Qualified Code(s): C83.00 - Small cell B- cell lymphoma, unspecified site Is this a current diagnosis for this admission?: Yes Plan: receiving outpatient chemo Rituxin with Dr. Casas. Her immunocompromized state puts her at risk of poor outcome with COVID. (5) Fever Qualifiers: Fever type: unspecified Qualified Code(s): R50.9 - Fever, unspecified Is this a current diagnosis for this admission?: Yes (6) Rheumatoid arthritis Is this a current diagnosis for this admission?: Yes - Time Time Spent with patient: 15-24 minutes Anticipated Discharge Disposition: Home with Home Health Anticipated Discharge Timeframe: unknown
[2020-08-25] MEDS: REMDESIVIR 100 MG in NORMAL SALINE 250 ML IV SCH (12:11)
[2020-08-25] MEDS: 1/2 NORMAL SALINE 1,000 ML IV PRN (12:13)
--- NOTE | 2020-08-25 12:30 | RADIOLOGY REPORT (SQ) ---
EXAM DESCRIPTION: CTA CHEST IMAGES COMPLETED DATE/TIME: 08/24/2020 7:04 pm REASON FOR STUDY: COVID PNA, ELEVATED DDIMER COMPARISON: None. TECHNIQUE: CT scan of the chest performed using helical scanning technique with dynamic intravenous contrast injection. Images reviewed with lung, soft tissue and bone windows. Reconstructed coronal and sagittal MPR images reviewed. Additional 3 dimensional post-processing performed to develop Maximal Intensity Projection images ([place] P). All images stored on PACS. All CT scanners at this facility use dose modulation, iterative reconstruction, and/or weight based d osing when appropriate to reduce radiation dose to as low as reasonably achievable (ALARA). [facility]: Dose Right [facility]: CareDose [facility]: Dose Right [facility]: Teradose 4D [facility]: ON [facility] CONTRAST TYPE AND DOSE: contrast/concentration: Isovue 350.00 mmol/ml; Total Contrast Delivered: 56. 0 ml; Total Saline Delivered: 67.2 ml RENAL FUNCTION: GFR > 60. RADIATION DOSE: CT Rad equipment meets quality standard of care and radiation dose reduction techniq ues were employed. CTDIvol: 14.9 - 24.2 mGy. DLP: 844 mGy-cm. . LIMITATIONS: Positioning. FINDINGS: LUNGS AND PLEURA: Patchy bilateral airspace disease with relative sparing of the left lowe r lobe. Associated ground-glass attenuation. No significant pleural fluid. AORTA AND GREAT VESSELS: No aneurysm. No dissection. HEART: No pericardial effusion. PULMONARY ARTERIES: No emboli visualized in the main pulmonary arteries or the segmental branches. HILAR AND MEDIASTINAL STRUCTURES: No identified masses or abnormal nodes. HARDWARE: None in the chest. UPPER ABDOMEN: No significant findings. Limited exam. THYROID AND OTHER SOFT TISSUES: Axillary adenopathy not significantly changed from PET-CT 06/28/2020. BONES: No acute or significant finding. 3D MIPS: Confirm above findings. OTHER: No other significant finding. IMPRESSION: 1. Bilateral pneumonia. 2. No PE. COMMENT: Quality ID # [id number]: Final reports with documentation of one or more dose reduction techniques (e.g., Automated exposure control, adjustment of the mA and/or kV according to patient size, use of iterative reconstruction technique) TECHNICAL DOCUMENTATION: JOB ID: [id number] 2010 [employer]- All Rights Reserved Reading location - IP/workstation name: [email or web address]
[2020-08-25] MEDS: AZITHROMYCIN 250 MG in DEXTROSE 5%-WATER 250 ML IV SCH (17:32)
[2020-08-25] MEDS ORDERED: LORAZEPAM INJ 2 MG/1 ML VIAL ONE (18:30)
[2020-08-25] MEDS ORDERED: LORAZEPAM INJ 2 MG/1 ML VIAL IV ONE (19:15)
--- NOTE | 2020-08-25 19:38 | RADIOLOGY REPORT (SQ) ---
EXAM DESCRIPTION: MRI HEAD COMBO IMAGES COMPLETED DATE/TIME: 08/25/2020 7:21 pm REASON FOR STUDY: Obtunded. COVID infection. Stroke? encephalitis? COMPARISON: None. TECHNIQUE: Multiplanar imaging includes noncontrasted T1, T2, FLAIR, diffusion with ADC map and post gadolinium contrast T1 sequences. Images stored on PACS. CONTRAST TYPE AND DOSE: 15 mL Prohance. RENAL FUNCTION: Not indicated. ACR Type II contrast agent associated with few, if any, unconfounded cases of NSF LIMITATIONS: Patient motion. FINDINGS: ANATOMY: No anomalies. Normal vascular flow voids. Pituitary fossa normal. CSF SPACES: Normal in size and contour. No hemorrhage. CEREBRUM: Sulci and gyri normal in size and contour. Normal white matter signal on FLAIR imaging. No evidence of hemorrhage, mass, or extraaxial fluid collection. No abnormal enhancement post contrast. POSTERIOR FOSSA: No signal alteration. No hemorrhage. No edema, masses, or mass effect. Internal alanna tory canals, cerebellopontine angles, mastoids normal. No enhancing lesions. No abnormal enhancement post contrast. DIFFUSION IMAGING: Negative for acute or subacute infarction. ORBITS: No masses. Globes normal. PARANASAL SINUSES: No fluid levels. Mucosa normal. OTHER: No other significant finding. IMPRESSION: Study limited by patient motion. No definite acute intracranial imaging findings. EVIDENCE OF ACUTE STROKE: NO. TECHNICAL DOCUMENTATION: JOB ID: [id number] 2010 [employer]- All Rights Reserved Reading location - IP/workstation name: [email or web address]
[2020-08-25] MEDS ORDERED: ENOXAPARIN SODIUM INJ 80 MG/0.8 ML DISP.SYRIN SUBCUT SCH (22:00)
[2020-08-26] MEDS: 1/2 NORMAL SALINE 1,000 ML IV PRN (04:00)
[2020-08-26 05:45] LABS: ABSOLUTE LYMPHOCYTES (AUTO) 1.5 10^3/uL (0.5-4.7); ABSOLUTE MONOCYTES (AUTO) 0.2 10^3/uL (0.1-1.4); BASOPHILS % (AUTO) 0.1 % (0-2); HEMATOCRIT 33.4 % (36.0-47.0); HEMOGLOBIN 11.5 g/dL (12.0-15.5); LYMPHOCYTES % (AUTO) 15.1 % (13-45); MEAN CORPUSCULAR HEMOGLOBIN 31.4 pg (27.0-33.4); MEAN CORPUSCULAR HGB CONC 34.6 g/dL (32.0-36.0); MEAN CORPUSCULAR VOLUME 91 fl (80-97); MONOCYTES % (AUTO) 1.6 % (3-13); PLATELET COUNT 368 10^3/uL (150-450); RED BLOOD COUNT 3.68 10^6/uL (3.72-5.28); RED CELL DISTRIBUTION WIDTH 14.8 % (11.5-14.0); SEGMENTED NEUTROPHILS % (AUTO) 83.2 % (42-78); TOTAL CELLS COUNTED % (AUTO) 100 %; WHITE BLOOD COUNT 9.6 10^3/uL (4.0-10.5)
[2020-08-26 06:02] LABS: ALBUMIN 2.4 g/dL (3.5-5.0); ALKALINE PHOSPHATASE 89 U/L (38-126); ANION GAP 6 (5-19); ASPARTATE AMINO TRANSFERASE 49 U/L (14-36); BILIRUBIN,DIRECT 0.4 mg/dL (0.0-0.4); BILIRUBIN,TOTAL 0.6 mg/dL (0.2-1.3); BLOOD UREA NITROGEN 22 mg/dL (7-20); CALCIUM 8.6 mg/dL (8.4-10.2); CARBON DIOXIDE 22 mmol/L (22-30); CHLORIDE 117 mmol/L (98-107); GLUCOSE 126 mg/dL (75-110); POTASSIUM 4.3 mmol/L (3.6-5.0); TOTAL PROTEIN 4.7 g/dL (6.3-8.2)
[2020-08-26 06:03] LABS: INTERNATIONAL RATION (INR) 1.17; PROTHROMBIN TIME 15.1 SEC (11.4-15.4)
[2020-08-26 06:06] LABS: D-DIMER 1.62 ug/mL (0.00-0.50)
[2020-08-26] MEDS: IVERMECTIN 3 MG TABLET PO SCH (10:49)
[2020-08-26] MEDS: FOLIC ACID 1 MG TABLET PO SCH (10:49)
[2020-08-26] MEDS: ASCORBIC ACID 500 MG TABLET PO SCH (10:49)
[2020-08-26] MEDS: CEFEPIME HCL 2 GM in DEXTROSE 5%-WATER 50 ML IV SCH ×2 (10:49→21:25)
[2020-08-26] MEDS: FAMOTIDINE INJ/PF 20 MG/2 ML SDV IV SCH ×2 (10:49→21:25)
[2020-08-26] MEDS: DEXAMETHASONE SOD PHOSPHATE INJ 4 MG/1 ML VIAL IV SCH ×2 (10:49→21:25)
[2020-08-26] MEDS: ZINC SULFATE 220 MG CAPSULE PO SCH (10:50)
[2020-08-26] MEDS: CHOLECALCIFEROL (D3) 1,000 UNIT (25 MCG) TABLET PO SCH (10:50)
[2020-08-26] MEDS: REMDESIVIR 100 MG in NORMAL SALINE 250 ML IV SCH (11:35)
--- NOTE | 2020-08-26 13:55 | PDOC PROGRESS REPORT ---
Subjective Date:: 08/26/20 Subjective:: Unable to obtain subjective. No improvement in mental status. Still pretty muc h obtunded. Responds to painful stimulus Reason For Visit: ENCEPHALOPATHY,PNA Physical Exam Vital Signs: Temp Pulse Resp BP Pulse Ox 98.5 F 72 22 H 106/56 L 95 08/26/20 08:11 08/26/20 08:11 08/26/20 08:11 08/26/20 08:11 08/26/20 08:11 Pulse Oximeter Continuous Start: 08/23/20 16:15 Freq: RTQ4 Status: Hold Protocol: Document 08/24/20 01:15 DBE (Rec: 08/24/20 01:28 DBE [id number]) Pulse Oximetry Assessment Equipment Usage Equipment Standby Continuous SpO2 Machine # XX Additional RT Notes Other MONITORING ON NURSES MONITOR DUE A PT BEING COVID + 08/24/20 01:16 Respiratory Care Notes by SIRISHA SANDOVAL MONITORING ON NURSES MONITOR DUE A PT BEING COVID + Initialized on 08/24/20 01:16 - END OF NOTE Intake & Output 08/25/20 08/26/20 08/27/20 06:59 06:59 06:59 Intake Total 1500 2500 250 Output Total 525 1000 Balance 975 1500 250 Weight 81 kg 95.3 kg General appearance: PRESENT: no acute distress Eye exam: PRESENT: PERRLA, other - Good corneal reflex Neck exam: ABSENT: JVD Respiratory exam: PRESENT: crackles - Mild, symmetrical, unlabored. ABSENT: accessory muscle use, retraction, tachypnea Cardiovascular exam: PRESENT: RRR, +S1, +S2. ABSENT: tachycardia GI/Abdominal exam: PRESENT: soft, tenderness - Mild. ABSENT: distended, firm, guarding, rebound, rigid Neurological exam: PRESENT: altered - Obtunded. gcs t9 [id number] Psychiatric exam: ABSENT: agitated, anxious Focused psych exam: ABSENT: pressured speech Skin exam: ABSENT: jaundice Results Laboratory Results: 08/26/20 04:54 08/26/20 04:54 08/26/20 08/26/20 04:54 04:54 WBC 9.6 RBC 3.68 L Hgb 11.5 L Hct 33.4 L MCV 91 MCH 31.4 MCHC 34.6 RDW 14.8 H Plt Count 368 Seg Neutrophils % 83.2 H Sodium 145.1 H Potassium 4.3 Chloride 117 H Carbon Dioxide 22 Anion Gap 6 BUN 22 H Creatinine 0.48 L Est GFR ( Amer) > 60 Glucose 126 H Calcium 8.6 Ferritin 598.00 H Total Bilirubin 0.6 AST 49 H Alkaline Phosphatase 89 C-Reactive Protein 82.0 H Total Protein 4.7 L Albumin 2.4 L 08/23/20 08/23/20 12:11 12:11 Creatine Kinase 132 Troponin I < 0.012 Impressions: Chest X-Ray 08/23/20 12:36 IMPRESSION: Bilateral upper lobe pneumonia. Head CT 08/23/20 12:36 IMPRESSION: Normal noncontrast CT appearance of the brain. Incidental finding of paranasal sinusitis. EVIDENCE OF ACUTE STROKE: NO. Chest/Abdomen CTA 08/24/20 00:00 IMPRESSION: 1. Bilateral pneumonia. 2. No PE. Head MRI 08/25/20 00:00 IMPRESSION: Study limited by patient motion. No definite acute intracranial imaging findings. EVIDENCE OF ACUTE STROKE: NO. Assessment and Plan - Diagnosis (1) Acute metabolic encephalopathy Is this a current diagnosis for this admission?: Yes Plan: Despite initial response to Narcan and Flumazenil pushes in ER and being off any Narcs since admission, patient remains obtunded w/ GCS T9 E2V2M5. MRI not the best quality but negative for CVA. Ddx is more likely Viral Encephalitis. Likely toxic encephalopathy from narcotic overdose played a role here but is clearly not the main culprit. LP today. Family has given consent. LP labs ordered. DNR/DNI status. Grim prognosis. (2) Pneumonia due to COVID-19 virus Is this a current diagnosis for this admission?: Yes Plan: Remdesivir day3 s/p Ivermectin x 2 Dexamethasone day 4 Therapeutic lovenox to resume tonight after LP Trend Ddimer and inflammatory markers Will d/c abx tomorrow or next (3) Acute respiratory failure with hypoxia Is this a current diagnosis for this admission?: Yes Plan: currently on simple face mask on 6L. Mouth breather (4) Small B-cell lymphoma Qualifiers: Lymphoma site: unspecified region Qualified Code(s): C83.00 - Small cell B- cell lymphoma, unspecified site Is this a current diagnosis for this admission?: Yes Plan: receiving outpatient chemo Rituxin with Dr. Casas. Her immunocompromized state puts her at risk of poor outcome with COVID. (5) Hypernatremia Is this a current diagnosis for this admission?: Yes Plan: dehydrated. Not taking po due to mental state. Increase fluid rate to 120cc/h. If no improvement in mental status today, I will discuss alternate feeding wishes with patient's daughters (6) Fever Qualifiers: Fever type: unspecified Qualified Code(s): R50.9 - Fever, unspecified Is this a current diagnosis for this admission?: Yes (7) Rheumatoid arthritis Is this a current diagnosis for this admission?: Yes - Time Time Spent with patient: 15-24 minutes Anticipated Discharge Disposition: Home, Self Care Anticipated Discharge Timeframe: Unknown
--- NOTE | 2020-08-26 15:51 | RADIOLOGY REPORT (SQ) ---
EXAM DESCRIPTION: LUMBAR PUNCTURE IMAGES COMPLETED DATE/TIME: 08/26/2020 3:34 pm REASON FOR STUDY: AMS covid. possible encephalitis COMPARISON: MRI of the brain dated 08/25/2020. FLUOROSCOPY TIME: 3 seconds 2 Images saved to PACS. TECHNIQUE: Fluoroscopic guided lumbar puncture with opening and closing pressures. LIMITATIONS: None. PROCEDURE: After written consent and assessment were obtained, the patient was brought into the fluo roscopy room and placed prone on the table. The patient's lower back was prepped in a sterile fashion and an entry site was selected under live fluoroscopic guidance. The entry site was anesthetized wit h 1% lidocaine. A 22 gauge needle was advanced through the skin and into the thecal sac at the level of L 3 -L 4 . An opening pressure of 17 units was obtained. After approximately 5.5 ml of CSF was esdras ined, a closing pressure of 17 units was obtained. The needle was removed and a sterile bandage was p laced of the site. Specimens were sent to the lab for testing. A fluoroscopic spot image was saved to PACS confirming level access. FINDINGS: Clear CSF IMPRESSION: Lumbar puncture under fluoroscopy. No immediate complication. COMMENT: Patient medication list reviewed: Yes- Quality ID# [id number]:Eligible professional attests to doc umenting in the medical record they obtained, updated, or reviewed the patient's current medications. Quality ID [id number]: Final reports for procedures using fluoroscopy that document radiation exposure indic es, or exposure time and number of fluorographic images (if radiation exposure indices are not availa ble) TECHNICAL DOCUMENTATION: Job ID: [id number] 2010 [employer]- All Rights Reserved Reading location - IP/workstation name: [email or web address]
[2020-08-26 16:16] LABS: GLUCOSE,CSF 74 mg/dL (40-70); PROTEIN,CSF 45 mg/dL (12-60)
[2020-08-26] MEDS: DEXTROSE 5%-1/2 NORMAL SALINE 1,000 ML IV PRN (17:05)
[2020-08-26 18:16] LABS: APPEARANCE ALL TUBES CLEAR; COLOR ALL TUBES COLORLESS; CSF TOTAL VOLUME 5.5 CC; CSF TUBE NUMBER 4; RED BLOOD CELL,CSF 33 /uL (0-10); VOLUME TUBE 2 1.5 CC; VOLUME TUBE 3 1.5 CC; VOLUME TUBE 4 1.5 CC
[2020-08-26 18:17] LABS: WHITE BLOOD CELL,CSF 1 /uL (0-5)
[2020-08-26 18:19] LABS: APPEARANCE TUBE 1 CLEAR; APPEARANCE TUBE 2 CLEAR; APPEARANCE TUBE 3 CLEAR; APPEARANCE TUBE 4 CLEAR; COLOR TUBE 1 COLORLESS; COLOR TUBE 2 COLORLESS; COLOR TUBE 3 COLORLESS; COLOR TUBE 4 COLORLESS
[2020-08-26] MEDS: ENOXAPARIN SODIUM INJ 100 MG/1 ML DISP.SYRIN SUBCUT SCH (21:25)
[2020-08-27 06:43] LABS: HEMATOCRIT 35.4 % (36.0-47.0); HEMOGLOBIN 11.9 g/dL (12.0-15.5); MEAN CORPUSCULAR HEMOGLOBIN 30.4 pg (27.0-33.4); MEAN CORPUSCULAR HGB CONC 33.6 g/dL (32.0-36.0); MEAN CORPUSCULAR VOLUME 91 fl (80-97); PLATELET COUNT 357 10^3/uL (150-450); RED BLOOD COUNT 3.91 10^6/uL (3.72-5.28); RED CELL DISTRIBUTION WIDTH 14.5 % (11.5-14.0); WHITE BLOOD COUNT 8.2 10^3/uL (4.0-10.5)
[2020-08-27 07:07] LABS: ALBUMIN 2.3 g/dL (3.5-5.0); ALKALINE PHOSPHATASE 83 U/L (38-126); ANION GAP 7 (5-19); ASPARTATE AMINO TRANSFERASE 39 U/L (14-36); BILIRUBIN,DIRECT 0.4 mg/dL (0.0-0.4); BILIRUBIN,TOTAL 0.7 mg/dL (0.2-1.3); BLOOD UREA NITROGEN 17 mg/dL (7-20); C-REACTIVE PROTEIN 45.7 mg/L (<10.0); CALCIUM 8.4 mg/dL (8.4-10.2); CARBON DIOXIDE 22 mmol/L (22-30); CHLORIDE 116 mmol/L (98-107); GLUCOSE 139 mg/dL (75-110); TOTAL PROTEIN 4.7 g/dL (6.3-8.2)
--- NOTE | 2020-08-27 08:48 | RADIOLOGY REPORT (SQ) ---
EXAM DESCRIPTION: CHEST SINGLE VIEW IMAGES COMPLETED DATE/TIME: 08/27/2020 7:48 am REASON FOR STUDY: tachypnea, hypoxia, covid, ams COMPARISON: 08/23/2020 NUMBER OF VIEWS: One view. TECHNIQUE: Single frontal radiographic image of the chest acquired. LIMITATIONS: Poor inspiratory effort. FINDINGS: LUNGS AND PLEURA: Bilateral airspace disease with associated ground-glass attenuation not significantly changed allowing for differences technique. No evidence cavitation. MEDIASTINUM AND HEART: Stable heart size and mediastinal structures. BONY STRUCTURES: Nothing acute. HARDWARE: None. OTHER: No other significant finding. IMPRESSION: STABLE APPEARANCE OF THE CHEST. TECHNICAL DOCUMENTATION: JOB ID: [id number] Reading location - IP/workstation name: [email or web address]
[2020-08-27] MEDS: FAMOTIDINE INJ/PF 20 MG/2 ML SDV IV SCH ×2 (10:57→21:25)
[2020-08-27] MEDS: DEXAMETHASONE SOD PHOSPHATE INJ 4 MG/1 ML VIAL IV SCH ×2 (10:57→21:25)
[2020-08-27] MEDS: ENOXAPARIN SODIUM INJ 100 MG/1 ML DISP.SYRIN SUBCUT SCH ×2 (10:57→21:25)
[2020-08-27] MEDS: REMDESIVIR 100 MG in NORMAL SALINE 250 ML IV SCH (10:57)
[2020-08-27] MEDS: DEXTROSE 5%-1/2 NORMAL SALINE 1,000 ML IV PRN (11:01)
[2020-08-27] MEDS: CEFEPIME HCL 2 GM in DEXTROSE 5%-WATER 50 ML IV SCH ×2 (12:27→21:25)
[2020-08-27] MEDS ORDERED: KETOROLAC TROMETHAMINE INJ/PF 30 MG/1 ML SDV IV PRN (13:45)
--- NOTE | 2020-08-27 17:39 | PDOC PROGRESS REPORT ---
Subjective Date:: 08/27/20 Subjective:: Patient waking up more this afternoon. Able to utter words this afternoon though mumbling. She told nurse "I don't have COVID" Reason For Visit: ENCEPHALOPATHY,PNA Physical Exam Vital Signs: Temp Pulse Resp BP Pulse Ox 97.5 F 71 20 102/52 L 96 08/27/20 15:24 08/27/20 15:24 08/27/20 15:24 08/27/20 15:24 08/27/20 15:24 Pulse Oximeter Continuous Start: 08/23/20 16:15 Freq: RTQ4 Status: Hold Protocol: Document 08/24/20 01:15 DBE (Rec: 08/24/20 01:28 DBE [id number]) Pulse Oximetry Assessment Equipment Usage Equipment Standby Continuous SpO2 Machine # XX Additional RT Notes Other MONITORING ON NURSES MONITOR DUE A PT BEING COVID + 08/24/20 01:16 Respiratory Care Notes by SIRISHA SANDOVAL MONITORING ON NURSES MONITOR DUE A PT BEING COVID + Initialized on 08/24/20 01:16 - END OF NOTE Intake & Output 08/26/20 08/27/20 08/28/20 06:59 06:59 06:59 Intake Total 2500 2156 250 Output Total 1000 900 Balance 1500 1256 250 Weight 95.3 kg 95.2 kg General appearance: PRESENT: no acute distress, cooperative Neck exam: ABSENT: JVD Respiratory exam: PRESENT: rhonchi, symmetrical, unlabored. ABSENT: accessory muscle use, tachypnea, wheezes Cardiovascular exam: PRESENT: RRR, +S1, +S2. ABSENT: tachycardia GI/Abdominal exam: PRESENT: soft. ABSENT: rebound, rigid, tenderness Neurological exam: PRESENT: awake - Awakens easily to verbal stimulus. Mumbling some words. Notes able to have meaningful conversation during my encounter but informed that she hasshown some improvement later in the afternoon. ABSENT: alert Psychiatric exam: ABSENT: agitated, anxious Focused psych exam: ABSENT: pressured speech Skin exam: ABSENT: jaundice Results Laboratory Results: 08/27/20 05:49 08/27/20 05:49 08/26/20 08/27/20 08/27/20 15:15 05:49 05:49 WBC 8.2 RBC 3.91 Hgb 11.9 L Hct 35.4 L MCV 91 MCH 30.4 MCHC 33.6 RDW 14.5 H Plt Count 357 Sodium 144.8 Potassium 4.0 Chloride 116 H Carbon Dioxide 22 Anion Gap 7 BUN 17 Creatinine 0.43 L Est GFR ( Amer) > 60 Glucose 139 H Calcium 8.4 Ferritin 423.00 H Total Bilirubin 0.7 AST 39 H Alkaline Phosphatase 83 C-Reactive Protein 45.7 H Total Protein 4.7 L Albumin 2.3 L Fluid Tube Number 4 CSF Volume 5.5 CSF Appearance CLEAR CSF Color COLORLESS CSF WBC 1 CSF RBC 33 CSF Color (1) COLORLESS CSF Appearance (1) CLEAR CSF Color (2) COLORLESS CSF Appearance (2) CLEAR CSF Color (3) COLORLESS CSF Appearance (3) CLEAR CSF Color (4) COLORLESS CSF Appearance (4) CLEAR 08/23/20 08/23/20 12:11 12:11 Creatine Kinase 132 Troponin I < 0.012 Impressions: Head CT 08/23/20 12:36 IMPRESSION: Normal noncontrast CT appearance of the brain. Incidental finding of paranasal sinusitis. EVIDENCE OF ACUTE STROKE: NO. Chest/Abdomen CTA 08/24/20 00:00 IMPRESSION: 1. Bilateral pneumonia. 2. No PE. Head MRI 08/25/20 00:00 IMPRESSION: Study limited by patient motion. No definite acute intracranial imaging findings. EVIDENCE OF ACUTE STROKE: NO. Lumbar Puncture 08/26/20 11:51 IMPRESSION: Lumbar puncture under fluoroscopy. No immediate complication. Chest X-Ray 08/27/20 06:00 IMPRESSION: STABLE APPEARANCE OF THE CHEST. Assessment and Plan - Diagnosis (1) Acute metabolic encephalopathy Is this a current diagnosis for this admission?: Yes Plan: Despite initial response to Narcan and Flumazenil pushes in ER and being off any Narcs since admission, patient remains obtunded w/ GCS T9 E2V2M5. MRI not the best quality but negative for CVA. Ddx is more likely Viral Encephalitis. Likely toxic encephalopathy from narcotic overdose played a role here but is clearly not the main culprit. LP today. Family has given consent. LP labs ordered. DNR/DNI status. Grim prognosis. 08/27/2020 LP results from yesterday is essentially negative for encephalitis. Her encephalopathy is likely secondary to COVID-19 infection. Showing improvement today as she is able to mumble words and make some brief phrases with the nurse today. We will try bedside swallow evaluation and see patient started on diet today. (2) Pneumonia due to COVID-19 virus Is this a current diagnosis for this admission?: Yes Plan: Remdesivir day4 s/p Ivermectin x 2 Dexamethasone day 5 Therapeutic lovenox Trend Ddimer and inflammatory markers Will d/c abx tomorrow or next (3) Acute respiratory failure with hypoxia Is this a current diagnosis for this admission?: Yes Plan: currently on simple face mask on 6L. Mouth breather (4) Small B-cell lymphoma Qualifiers: Lymphoma site: unspecified region Qualified Code(s): C83.00 - Small cell B- cell lymphoma, unspecified site Is this a current diagnosis for this admission?: Yes (5) Hypernatremia Is this a current diagnosis for this admission?: Yes Plan: Improved with IV fluids (6) Fever Qualifiers: Fever type: unspecified Qualified Code(s): R50.9 - Fever, unspecified Is this a current diagnosis for this admission?: Yes (7) Rheumatoid arthritis Is this a current diagnosis for this admission?: Yes - Time Time Spent with patient: 15-24 minutes Anticipated Discharge Disposition: Home, Self Care Anticipated Discharge Timeframe: Unknown
[2020-08-27] MEDS: KETOROLAC TROMETHAMINE INJ/PF 30 MG/1 ML SDV IV PRN (18:42)
[2020-08-28 06:36] LABS: C-REACTIVE PROTEIN 25.5 mg/L (<10.0)
[2020-08-28] MEDS: CEFEPIME HCL 2 GM in DEXTROSE 5%-WATER 50 ML IV SCH ×2 (10:08→22:28)
[2020-08-28] MEDS: DEXTROSE 5%-1/2 NORMAL SALINE 1,000 ML IV PRN ×2 (10:08→22:34)
[2020-08-28] MEDS: FAMOTIDINE INJ/PF 20 MG/2 ML SDV IV SCH ×2 (10:08→22:28)
[2020-08-28] MEDS: ENOXAPARIN SODIUM INJ 100 MG/1 ML DISP.SYRIN SUBCUT SCH ×2 (10:09→22:28)
[2020-08-28] MEDS: DEXAMETHASONE SOD PHOSPHATE INJ 4 MG/1 ML VIAL IV SCH ×2 (10:09→22:28)
[2020-08-28] MEDS: REMDESIVIR 100 MG in NORMAL SALINE 250 ML IV SCH (12:01)
[2020-08-28] MEDS ORDERED: ATROPINE SULFATE INJ 1 MG/1 ML VIAL IV PRN (12:52)
[2020-08-28] MEDS ORDERED: ATROPINE SULFATE INJ 1 MG/10 ML DISP.SYRIN IV PRN (12:59)
[2020-08-28 14:49] LABS: HEMATOCRIT 34.9 % (36.0-47.0); HEMOGLOBIN 11.8 g/dL (12.0-15.5); MEAN CORPUSCULAR HEMOGLOBIN 30.2 pg (27.0-33.4); MEAN CORPUSCULAR HGB CONC 33.8 g/dL (32.0-36.0); MEAN CORPUSCULAR VOLUME 90 fl (80-97); PLATELET COUNT 401 10^3/uL (150-450); RED CELL DISTRIBUTION WIDTH 14.4 % (11.5-14.0); WHITE BLOOD COUNT 6.9 10^3/uL (4.0-10.5)
[2020-08-28 15:02] LABS: ALBUMIN 2.3 g/dL (3.5-5.0); ALKALINE PHOSPHATASE 74 U/L (38-126); ASPARTATE AMINO TRANSFERASE 31 U/L (14-36); BILIRUBIN,DIRECT 0.4 mg/dL (0.0-0.4); BILIRUBIN,TOTAL 0.8 mg/dL (0.2-1.3); BLOOD UREA NITROGEN 13 mg/dL (7-20); CALCIUM 7.9 mg/dL (8.4-10.2); CARBON DIOXIDE 26 mmol/L (22-30); GLUCOSE 160 mg/dL (75-110); PHOSPHORUS 1.8 mg/dL (2.5-4.5); POTASSIUM 3.3 mmol/L (3.6-5.0); TOTAL PROTEIN 4.5 g/dL (6.3-8.2)
[2020-08-28 15:07] LABS: CHLORIDE 114 mmol/L (98-107)
[2020-08-28 15:09] LABS: ANION GAP 4 (5-19)
[2020-08-28 15:15] LABS: ABSOLUTE LYMPHOCYTES# (MANUAL) 1.7 10^3/uL (0.5-4.7); ABSOLUTE MONOCYTES # (MANUAL) 0.1 10^3/uL (0.1-1.4); ANISOCYTOSIS SLIGHT; BASOPHILS % (MANUAL) 0 % (0-2); EOSINOPHILS % (MANUAL) 0 % (0-6); LYMPHOCYTES % (MANUAL) 23 % (13-45); MONOCYTES % (MANUAL) 2 % (3-13); PLATELET COMMENT ADEQUATE; SEGMENTED NEUTROPHILS % (MAN) 74 % (42-78); TOTAL CELLS COUNTED 100
--- NOTE | 2020-08-28 17:07 | PDOC PROGRESS REPORT ---
Subjective Date:: 08/28/20 Subjective:: Patient is actually awake today and talking. She still has some confusion but i s able to formulate sentences and actually respond to questions with full sentences. She does seem dysarthric. However this is the best mental state of seen from her so far throughout this admission. She is still disoriented and thinks she is in year 1999. She is still clearly not fully with it and not coherent. She did tell the nurse earlier that she wanted to . She remains on about 5 to 6 L nasal cannula. We had to get her in restraints because she was attempting to pull off her nasal cannula. Noted to be in sinus bradycardia initially in the 40s now in the 50s. She was however asymptomatic in regards to that. Reason For Visit: ENCEPHALOPATHY,PNA Physical Exam Vital Signs: Temp Pulse Resp BP Pulse Ox 97.4 F 56 L 20 128/67 H 96 08/28/20 15:31 08/28/20 15:31 08/28/20 15:31 08/28/20 15:31 08/28/20 15:31 Pulse Oximeter Continuous Start: 08/23/20 16:15 Freq: RTQ4 Status: Hold Protocol: Document 08/24/20 01:15 DBE (Rec: 08/24/20 01:28 DBE [id number]) Pulse Oximetry Assessment Equipment Usage Equipment Standby Continuous SpO2 Machine # XX Additional RT Notes Other MONITORING ON NURSES MONITOR DUE A PT BEING COVID + 08/24/20 01:16 Respiratory Care Notes by SIRISHA SANDOVAL MONITORING ON NURSES MONITOR DUE A PT BEING COVID + Initialized on 08/24/20 01:16 - END OF NOTE Intake & Output 08/27/20 08/28/20 08/29/20 06:59 06:59 06:59 Intake Total 2156 1250 250 Output Total 900 405 Balance 1256 845 250 Weight 95.2 kg 94.8 kg General appearance: PRESENT: no acute distress, cooperative Eye exam: PRESENT: EOMI, PERRLA Neck exam: ABSENT: JVD Respiratory exam: PRESENT: crackles, symmetrical, unlabored. ABSENT: tachypnea, wheezes Cardiovascular exam: PRESENT: bradycardia, +S1, +S2. ABSENT: irregular rhythm, tachycardia GI/Abdominal exam: PRESENT: hernia - Reducible, soft. ABSENT: distended, firm, rebound, rigid, tenderness Neurological exam: PRESENT: alert, awake, oriented to person, oriented to place, other - Still quite confused and not making fully coherent statements most times. She is able to recall the names of her daughters.. ABSENT: oriented to time, oriented to situation Results Laboratory Results: 08/28/20 14:30 08/28/20 14:30 08/28/20 08/28/20 08/28/20 04:59 14:30 14:30 WBC 6.9 RBC 3.90 Hgb 11.8 L Hct 34.9 L MCV 90 MCH 30.2 MCHC 33.8 RDW 14.4 H Plt Count 401 Seg Neutrophils % Not Reportable Sodium 143.9 Potassium 3.3 L Chloride 114 H Carbon Dioxide 26 Anion Gap 4 L BUN 13 Creatinine 0.32 L Est GFR ( Amer) > 60 Glucose 160 H Calcium 7.9 L Phosphorus 1.8 L Magnesium 1.9 Ferritin 363.00 H Total Bilirubin 0.8 AST 31 Alkaline Phosphatase 74 C-Reactive Protein 25.5 H Total Protein 4.5 L Albumin 2.3 L 08/23/20 14:17 Blood Blood Culture - Final NO GROWTH IN 5 DAYS 08/23/20 12:11 Blood Blood Culture - Final NO GROWTH IN 5 DAYS 08/26/20 15:15 Cerebral Spinal Fluid - Csf Gram Stain - Final 08/23/20 08/23/20 08/28/20 12:11 12:11 14:30 Creatine Kinase 132 Troponin I < 0.012 < 0.012 Impressions: Head CT 08/23/20 12:36 IMPRESSION: Normal noncontrast CT appearance of the brain. Incidental finding of paranasal sinusitis. EVIDENCE OF ACUTE STROKE: NO. Chest/Abdomen CTA 08/24/20 00:00 IMPRESSION: 1. Bilateral pneumonia. 2. No PE. Head MRI 08/25/20 00:00 IMPRESSION: Study limited by patient motion. No definite acute intracranial imaging findings. EVIDENCE OF ACUTE STROKE: NO. Lumbar Puncture 08/26/20 11:51 IMPRESSION: Lumbar puncture under fluoroscopy. No immediate complication. Chest X-Ray 08/27/20 06:00 IMPRESSION: STABLE APPEARANCE OF THE CHEST. Assessment and Plan - Diagnosis (1) Acute metabolic encephalopathy Is this a current diagnosis for this admission?: Yes Plan: Initially had some brief but considerable responses to narcan and flumezanil so thought to be Narc related but had no further inprovement with narc drip. MRI not the best quality but negative for CVA. LP negative. Her encephalopathy is likely secondary to COVID-19 infection. Mental status today is actually the best of ever seen her. She is awake and talking now. Still quite incoherent. We will continue to monitor her. We will get on the head CT today to see if there is any evolution of any recent stroke especially as the other MRI was limited due to motion. Still likely not in a position to tolerate another MRI. (2) Pneumonia due to COVID-19 virus Is this a current diagnosis for this admission?: Yes Plan: S/p Remdesivir, Ivermectin Dexamethasone day 6 Therapeutic lovenox - d dimer still elevated (3) Sinus bradycardia Is this a current diagnosis for this admission?: Yes Plan: EKG shows sinus bradycardia without AV block. Heart rate was noted to be in the 40s but mostly in the 50s. She is not on any beta-blockers or AV davey lulu s. Troponin negative. Asymptomatic in regards to this and with good chronotropoic repsonse when agitated. We will keep atropine as needed handy and available. Obtained labs which show hypokalemia and hypophosphatemia. We will replete this electrolytes with IV medications. (4) Acute respiratory failure with hypoxia Is this a current diagnosis for this admission?: Yes Plan: Secondary to COVID-19. On 6 L nasal cannula. Satting well. (5) Dysphagia Qualifiers: Dysphagia type: oropharyngeal phase Qualified Code(s): R13.12 - Dysphagia, oropharyngeal phase Is this a current diagnosis for this admission?: Yes Plan: Failed a bedside swallow evaluation. Speech therapy consulted. (6) Small B-cell lymphoma Qualifiers: Lymphoma site: unspecified region Qualified Code(s): C83.00 - Small cell B- cell lymphoma, unspecified site Is this a current diagnosis for this admission?: Yes (7) Hypernatremia Is this a current diagnosis for this admission?: Yes (8) Fever Qualifiers: Fever type: unspecified Qualified Code(s): R50.9 - Fever, unspecified Is this a current diagnosis for this admission?: Yes (9) Rheumatoid arthritis Is this a current diagnosis for this admission?: Yes - Time Time Spent with patient: 15-24 minutes Anticipated Discharge Disposition: Home, Self Care Anticipated Discharge Timeframe: within 72 hours
--- NOTE | 2020-08-28 17:14 | RADIOLOGY REPORT (SQ) ---
EXAM DESCRIPTION: CT HEAD WITHOUT IMAGES COMPLETED DATE/TIME: 08/28/2020 5:03 pm REASON FOR STUDY: AMS, sudden bradycardia COMPARISON: 08/23/2020 TECHNIQUE: Axial images acquired through the brain without intravenous contrast. Images reviewed wi th bone, brain and subdural windows. Additional sagittal and coronal reconstructions were generated. Images stored on PACS. All CT scanners at this facility use dose modulation, iterative reconstruction, and/or weight based d osing when appropriate to reduce radiation dose to as low as reasonably achievable (ALARA). [facility]: Dose Right [facility]: CareDose [facility]: Dose Right [facility]: Teradose 4D [facility]: Smart Impact Driven RADIATION DOSE: CT Rad equipment meets quality standard of care and radiation dose reduction techniq ues were employed. CTDIvol: 48.9 mGy. DLP: 935 mGy-cm. mGy. LIMITATIONS: Slightly skewed positioning of the patient's head within the CT scanner results in off axis scanning. This mildly limits. FINDINGS: VENTRICLES: Normal size and contour. CEREBRUM: No masses. No hemorrhage. No midline shift. No evidence for acute infarction. Normal gra y/white matter differentiation. No areas of low density in the white matter. CEREBELLUM: No masses. No hemorrhage. No alteration of density. No evidence for acute infarction. EXTRAAXIAL SPACES: No fluid collections. No masses. ORBITS AND GLOBE: No intra- or extraconal masses. Normal contour of globe without masses. CALVARIUM: No fracture. PARANASAL SINUSES: Patchy opacity in the sphenoid sinus. No fluid levels. SOFT TISSUES: No mass or hematoma. OTHER: No other significant finding. IMPRESSION: No acute or suspicious intracranial abnormality. EVIDENCE OF ACUTE STROKE: NO. COMMENT: Quality ID # [id number]: Final reports with documentation of one or more dose reduction techniques (e.g., Automated exposure control, adjustment of the mA and/or kV according to patient size, use of iterative reconstruction technique) TECHNICAL DOCUMENTATION: JOB ID: [id number] 2010 [employer]- All Rights Reserved Reading location - IP/workstation name: [email or web address] PSYCHOLOGIST [email or web address]
[2020-08-28] MEDS ORDERED: POTASSIUM PHOS,M-BASIC-D-BASIC 30 MMOL in NORMAL SALINE 500 ML IV ONE ×2 (17:30→22:00)
[2020-08-28] MEDS: POTASSI CL 20 MEQ/50 ML RIDER 20 MEQ/50 ML RTUPB IV SCH ×2 (17:40→19:50)
--- NOTE | 2020-08-28 17:55 | EKG REPORT ---
SEVERITY:- BORDERLINE ECG - SINUS BRADYCARDIA VENTRICULAR PREMATURE COMPLEX BORDERLINE T ABNORMALITIES, ANT-LAT LEADS : Confirmed by: Shahzad Rodrigez MD 28-Aug-2020 17:54:20
[2020-08-29 04:53] LABS: HEMATOCRIT 35.1 % (36.0-47.0); HEMOGLOBIN 11.9 g/dL (12.0-15.5); MEAN CORPUSCULAR HEMOGLOBIN 30.3 pg (27.0-33.4); MEAN CORPUSCULAR HGB CONC 33.8 g/dL (32.0-36.0); MEAN CORPUSCULAR VOLUME 90 fl (80-97); PLATELET COUNT 389 10^3/uL (150-450); RED BLOOD COUNT 3.92 10^6/uL (3.72-5.28); RED CELL DISTRIBUTION WIDTH 14.3 % (11.5-14.0); WHITE BLOOD COUNT 6.3 10^3/uL (4.0-10.5)
[2020-08-29 05:24] LABS: ANION GAP 5 (5-19); BLOOD UREA NITROGEN 9 mg/dL (7-20); C-REACTIVE PROTEIN 16.9 mg/L (<10.0); CALCIUM 7.7 mg/dL (8.4-10.2); CARBON DIOXIDE 24 mmol/L (22-30); CHLORIDE 112 mmol/L (98-107); GLUCOSE 153 mg/dL (75-110); PHOSPHORUS 2.3 mg/dL (2.5-4.5); POTASSIUM 3.7 mmol/L (3.6-5.0)
[2020-08-29] MEDS ORDERED: POTASSIUM PHOS,M-BASIC-D-BASIC 15 MMOL in NORMAL SALINE 250 ML IV ONE (07:22)
[2020-08-29] MEDS ORDERED: POTASSIUM PHOS,M-BASIC-D-BASIC 30 MMOL in NORMAL SALINE 500 ML IV ONE (09:00)
[2020-08-29] MEDS: ENOXAPARIN SODIUM INJ 100 MG/1 ML DISP.SYRIN SUBCUT SCH ×2 (10:00→21:22)
[2020-08-29] MEDS: DEXAMETHASONE SOD PHOSPHATE INJ 4 MG/1 ML VIAL IV SCH ×2 (10:00→21:22)
[2020-08-29] MEDS: CEFEPIME HCL 2 GM in DEXTROSE 5%-WATER 50 ML IV SCH (10:01)
[2020-08-29] MEDS: DEXTROSE 5%-1/2 NORMAL SALINE 1,000 ML IV PRN ×2 (10:01→18:31)
[2020-08-29] MEDS: FAMOTIDINE INJ/PF 20 MG/2 ML SDV IV SCH ×2 (10:01→21:22)
[2020-08-29 11:00] LABS: APPEARANCE,URINE CLEAR; BILIRUBIN,URINE NEGATIVE (NEGATIVE); COLOR,URINE YELLOW; GLUCOSE, URINE NEGATIVE (NEGATIVE); KETONES,URINE NEGATIVE (NEGATIVE); LEUKOCYTE ESTERASE,URINE NEGATIVE (NEGATIVE); NITRITE,URINE NEGATIVE (NEGATIVE); PROTEIN,URINE NEGATIVE (NEGATIVE); URINE SPECIFIC GRAVITY 1.019; UROBILINOGEN,URINE NEGATIVE mg/dL (<2.0)
[2020-08-29] MEDS: KETOROLAC TROMETHAMINE INJ/PF 30 MG/1 ML SDV IV PRN (14:20)
--- NOTE | 2020-08-29 14:46 | PDOC PROGRESS REPORT ---
Subjective Date:: 08/29/20 Subjective:: Patient is awake and talking today. Tells me that she has Hpylori and was told h er reflux affected her swallowing so she is on a chopped diet at home. Treatment will be useful for narcotics at home. She denies any intention of self-harm. Reason For Visit: ENCEPHALOPATHY,PNA Physical Exam Vital Signs: Temp Pulse Resp BP Pulse Ox 97.5 F 56 L 20 152/72 H 94 08/29/20 11:54 08/29/20 11:54 08/29/20 11:54 08/29/20 11:54 08/29/20 11:54 Pulse Oximeter Continuous Start: 08/23/20 16:15 Freq: RTQ4 Status: Hold Protocol: Document 08/24/20 01:15 DBE (Rec: 08/24/20 01:28 DBE [id number]) Pulse Oximetry Assessment Equipment Usage Equipment Standby Continuous SpO2 Machine # XX Additional RT Notes Other MONITORING ON NURSES MONITOR DUE A PT BEING COVID + 08/24/20 01:16 Respiratory Care Notes by SIRISHA SANDOVAL MONITORING ON NURSES MONITOR DUE A PT BEING COVID + Initialized on 08/24/20 01:16 - END OF NOTE Intake & Output 08/28/20 08/29/20 08/30/20 06:59 06:59 06:59 Intake Total 1250 2300 550 Output Total 405 1175 Balance 845 1125 550 Weight 94.8 kg 98.4 kg General appearance: PRESENT: no acute distress, cooperative Eye exam: PRESENT: PERRLA Neck exam: ABSENT: JVD Respiratory exam: PRESENT: crackles, symmetrical, unlabored. ABSENT: tachypnea, wheezes Cardiovascular exam: PRESENT: RRR, +S1, +S2. ABSENT: tachycardia GI/Abdominal exam: PRESENT: soft. ABSENT: rebound, rigid, tenderness Neurological exam: PRESENT: alert, awake, oriented to person, oriented to place, oriented to time, oriented to situation, other - Mild dysarthria. ABSENT: aphasic Results Laboratory Results: 08/29/20 04:09 08/29/20 04:09 08/28/20 08/28/20 08/29/20 14:30 14:30 04:09 WBC 6.9 RBC 3.90 Hgb 11.8 L Hct 34.9 L MCV 90 MCH 30.2 MCHC 33.8 RDW 14.4 H Plt Count 401 Seg Neutrophils % Not Reportable Sodium 143.9 141.1 Potassium 3.3 L 3.7 Chloride 114 H 112 H Carbon Dioxide 26 24 Anion Gap 4 L 5 BUN 13 9 Creatinine 0.32 L 0.30 L Est GFR ( Amer) > 60 > 60 Glucose 160 H 153 H Calcium 7.9 L 7.7 L Phosphorus 1.8 L 2.3 L Magnesium 1.9 1.9 Ferritin 357.00 H Total Bilirubin 0.8 AST 31 Alkaline Phosphatase 74 C-Reactive Protein 16.9 H Total Protein 4.5 L Albumin 2.3 L Urine Color Urine Appearance Urine pH Ur Specific Bryson Urine Protein Urine Glucose (UA) Urine Ketones Urine Blood Urine Nitrite Ur Leukocyte Esterase Urine WBC (Auto) Urine RBC (Auto) 08/29/20 08/29/20 04:09 09:18 WBC 6.3 RBC 3.92 Hgb 11.9 L Hct 35.1 L MCV 90 MCH 30.3 MCHC 33.8 RDW 14.3 H Plt Count 389 Seg Neutrophils % Sodium Potassium Chloride Carbon Dioxide Anion Gap BUN Creatinine Est GFR ( Amer) Glucose Calcium Phosphorus Magnesium Ferritin Total Bilirubin AST Alkaline Phosphatase C-Reactive Protein Total Protein Albumin Urine Color YELLOW Urine Appearance CLEAR Urine pH 6.0 Ur Specific Bryson 1.019 Urine Protein NEGATIVE Urine Glucose (UA) NEGATIVE Urine Ketones NEGATIVE Urine Blood SMALL H Urine Nitrite NEGATIVE Ur Leukocyte Esterase NEGATIVE Urine WBC (Auto) 3 Urine RBC (Auto) 26 08/26/20 15:15 Cerebral Spinal Fluid - Csf Gram Stain - Final 08/26/20 15:15 Cerebral Spinal Fluid - Csf CSF Culture - Final NO GROWTH 3 DAYS 08/23/20 14:17 Blood Blood Culture - Final NO GROWTH IN 5 DAYS 08/23/20 12:11 Blood Blood Culture - Final NO GROWTH IN 5 DAYS 08/23/20 08/23/20 08/28/20 12:11 12:11 14:30 Creatine Kinase 132 Troponin I < 0.012 < 0.012 08/28/20 20:15 Creatine Kinase Troponin I < 0.012 Impressions: Chest/Abdomen CTA 08/24/20 00:00 IMPRESSION: 1. Bilateral pneumonia. 2. No PE. Head MRI 08/25/20 00:00 IMPRESSION: Study limited by patient motion. No definite acute intracranial imaging findings. EVIDENCE OF ACUTE STROKE: NO. Lumbar Puncture 08/26/20 11:51 IMPRESSION: Lumbar puncture under fluoroscopy. No immediate complication. Chest X-Ray 08/27/20 06:00 IMPRESSION: STABLE APPEARANCE OF THE CHEST. Head CT 08/28/20 00:00 IMPRESSION: No acute or suspicious intracranial abnormality. EVIDENCE OF ACUTE STROKE: NO. Assessment and Plan - Diagnosis (1) Acute metabolic encephalopathy Is this a current diagnosis for this admission?: Yes Plan: Initially had some brief but considerable responses to narcan and flumezanil so thought to be Narc related but had no further inprovement with narc drip. MRI not the best quality but negative for CVA. LP negative. Her encephalopathy was likely secondary to COVID-19 infection. Her mental status actually looks to be back at baseline now. She is awake and talking and completely oriented. Also able to give me information about her history. Attempted to call patient's daughters Aide and Sumi but nobody picked up with times. Left voice message to call back. (2) Pneumonia due to COVID-19 virus Is this a current diagnosis for this admission?: Yes Plan: S/p Remdesivir, Ivermectin Dexamethasone day 7 Therapeutic lovenox - d dimer still elevated (3) Sinus bradycardia Is this a current diagnosis for this admission?: Yes Plan: Heart rate now hanging in the 50s. Asymptomatic with good chronotropic response. Nothing to do. Replete hypophosphatemia (4) Acute respiratory failure with hypoxia Is this a current diagnosis for this admission?: Yes Plan: Secondary to COVID-19. Down to 2 L nasal cannula now. We will gradually wean off. (5) Dysphagia Qualifiers: Dysphagia type: oropharyngeal phase Qualified Code(s): R13.12 - Dysphagia, oropharyngeal phase Is this a current diagnosis for this admission?: Yes Plan: Failed a bedside swallow evaluation. Speech therapy consulted. Planning for MBS today. Patient states she is on a chopped diet at home. (6) Small B-cell lymphoma Qualifiers: Lymphoma site: unspecified region Qualified Code(s): C83.00 - Small cell B- cell lymphoma, unspecified site Is this a current diagnosis for this admission?: Yes (7) Hypernatremia Is this a current diagnosis for this admission?: Yes (8) Fever Qualifiers: Fever type: unspecified Qualified Code(s): R50.9 - Fever, unspecified Is this a current diagnosis for this admission?: Yes (9) Rheumatoid arthritis Is this a current diagnosis for this admission?: Yes - Time Time Spent with patient: 15-24 minutes Anticipated Discharge Disposition: Home, Self Care Anticipated Discharge Timeframe: within 48 hours
--- NOTE | 2020-08-29 15:54 | ST Inp Modified Barium Swallow ---
Medical Diagnosis - Medical Diagnoses Medical Diagnosis Description & ICD-10 Code(s): acute metabolic encephalopathy - ICD-10 Tx Diagnosis Coding (1) Acute metabolic encephalopathy ICD-10 Code(s): G93.41 - METABOLIC ENCEPHALOPATHY (2) Acute respiratory failure with hypoxia ICD-10 Code(s): J96.01 - ACUTE RESPIRATORY FAILURE WITH HYPOXIA (3) Dysphagia ICD-10 Code(s): R13.10 - DYSPHAGIA, UNSPECIFIED (4) Hypernatremia ICD-10 Code(s): E87.0 - HYPEROSMOLALITY AND HYPERNATREMIA (5) Pneumonia due to COVID-19 virus ICD-10 Code(s): U07.1 - COVID-19; J12.89 - OTHER VIRAL PNEUMONIA (6) Pneumonia of both upper lobes ICD-10 Code(s): J18.9 - PNEUMONIA, UNSPECIFIED ORGANISM (7) Sinus bradycardia ICD-10 Code(s): R00.1 - BRADYCARDIA, UNSPECIFIED (8) Small B-cell lymphoma ICD-10 Code(s): C83.00 - SMALL CELL B-CELL LYMPHOMA, UNSPECIFIED SITE [facility] - General Date: 08/29/20 Date of Onset: 08/24/20 - History History Obtained From: Other - EMR Medical History: Patient admitted 08/24/2020. PRIOR MEDICAL HISTORY: Cancer, rheumatoid arthritis, CAD, COPD. She was brought to hospital via EMS at request of her daughter due to low pulse ox in 50s. Initially altered state thought to be related to medications due to improvement with narcan, however at this time encephalopathy thought to be related to COVID-19 infection (per 08/28/2020 Physician's Progress Note). Patient tested for COVID test due to reported positive in family; did test positive. As of 08/28/2020, patient reported to be awake and talking, "still has some confusion but is able to formulate sentences and actually respond to questions with full sentences". Also notes "she did tell the nurse earlier she wanted to ". CHEST X-RAY: Bilateral upper lobe pneumonia. CURRENT DIAGNOSES include acute metabolic encephalopathy (noted encephalopathy likely secondary to COVID-19 infection; plan to repeat head CT to check for CVA), pneumonia due to COVID-19 virus (bilateral upper lobes), sinus bradycardia, acute respiratory failure with hypoxia, dysphagia, small b-cell lymphoma (for which patient is receiving outpatient chemo with Dr. Casas), hypernatremia, fever, rheumatoid arthritis. Per VALERIE Thomas, patient grinds her meats at home. Medications: Medications Reviewed Allergies: Refer to medical record - Subjective Current Nutritional Means: NPO Current Symptoms: Coughing, Pneumonia Pain: 0/5 - Objective Assessment: Upright, Left Lateral - Food Trials Food Trials Used: Thin liquids, Pureed, Soft solids The Patient: Required Assist, fed by ST - Assessment Labial Function: Within Functional Limits Lingual Function: Within Functional Limits Mandibular Function: Within Functional Limits - Pharyngeal Stage Initiation of Pharyngeal Stage: Normal Decreased Laryngeal Elevation: No Reduced Velo-Pharyngeal Closure: no Reduced Pressure Generation: No Reduced Tongue Base Retraction: No Pre-Swallowing Pooling in Valleculae: None Pre-Swallowing Pooling in Pyriforms: None Reduced Thyro-Hyiod Approximation: No Reduced Epiglottic Excursion: No Reduced Pharyngeal Peristalsis: No Post Swallow Residuals in Valleculae: None Post Swallow Residuals in Pyriforms: None - Esophageal Stage Cricophageal Function: Normal - Impression/Summary Laryngeal Penetration: No Tracheal Aspiration: no Patient Presents With: Normal swallow at eval Risk of Aspiration: Moderate - due to mental status and respiratory status. If either worsens, patient may not be safe for recommended diet. Risk of Nutritional Compromise: Moderate - Recommendations Solid Diet Recommendations: Mechanical Soft, Ground Meat Liquid Diet Recommendations: Thin Strict Aspitarion Precautions: Yes Recommended Techniques: Fully Upright During Meal Supervision: Distant Other Recommendations: Patient presents with safe and effective swallow. Recommend thin liquids and mechanical soft solids. Recommended ground solids as per VALERIE Thomas, patient grinds meats at baseline. However based on pharyngeal stage swallow function, patient could be upgraded to chopped or regular solids if desired. ST to follow PRN in event of any changes. Results and recommendations have been communicated to both Dr. Jordan and VALERIE Thomas. Dr. Jordan in agreement with recommended diet and provided order. - Time Total Time: 10 Total Timed Minutes: 0
--- NOTE | 2020-08-29 16:14 | RADIOLOGY REPORT (SQ) ---
EXAM DESCRIPTION: COOKIE SWALLOW IMAGES COMPLETED DATE/TIME: 08/29/2020 3:44 pm REASON FOR STUDY: dysphagia COVID 19, pneumonia, encephalopathy COMPARISON: None. TECHNIQUE: Videofluoroscopic swallowing examination was performed in conjunction with speech patholo gy. Videofluoroscopic imaging was obtained and reviewed and these are the findings: RADIATION DOSE: 1.3 minutes of fluoroscopy was used. 1 images saved to PACS. LIMITATIONS: None FINDINGS: The patient was brought into the fluoro room and placed upright on a modified barium swall ow chair. The patient was then given multiple consistencies mixed with barium to swallow under live fluoroscopic video guidance. According to the Speech Pathologist there was no penetration or aspirat ion. IMPRESSION: NO EVIDENCE OF PENETRATION OR ASPIRATION. PLEASE SEE SPEECH PATHOLOGIST REPORT FOR OTHER FINDINGS AND RECOMMENDATIONS. COMMENT: Quality ID [id number]: Final reports for procedures using fluoroscopy that document radiation exp osure indices, or exposure time and number of fluorographic images (if radiation exposure indices are not available) TECHNICAL DOCUMENTATION: JOB ID: [id number] 2010 [email or web address]- All Rights Reserved Reading location - IP/workstation name: [id number]
[2020-08-30] MEDS: KETOROLAC TROMETHAMINE INJ/PF 30 MG/1 ML SDV IV PRN (03:50)
[2020-08-30 04:45] VITALS: BP 106/64
[2020-08-30] MEDS: DEXTROSE 5%-1/2 NORMAL SALINE 1,000 ML IV PRN (04:55)
[2020-08-30 05:28] LABS: C-REACTIVE PROTEIN 11.6 mg/L (<10.0)
[2020-08-30 07:57] LABS: HSV SOURCE CSF
[2020-08-30] MEDS: DEXAMETHASONE SOD PHOSPHATE INJ 4 MG/1 ML VIAL IV SCH (10:27)
[2020-08-30] MEDS: ENOXAPARIN SODIUM INJ 100 MG/1 ML DISP.SYRIN SUBCUT SCH (10:27)
[2020-08-30] MEDS: FAMOTIDINE INJ/PF 20 MG/2 ML SDV IV SCH (10:27)
--- NOTE | 2020-08-30 10:30 | EKG REPORT ---
SEVERITY:- ABNORMAL ECG - SINUS RHYTHM NONSPECIFIC T ABNORMALITIES, ANT-LAT LEADS : Confirmed by: Alicia Morrison 30-Aug-2020 10:29:02
[2020-08-30] MEDS ORDERED: MORPHINE SULFATE 10 MG/ML INJ IV ONE (11:00)
[2020-08-30] MEDS ORDERED: ALPRAZOLAM 0.5 MG TABLET PO PRN (11:03)
[2020-08-30] MEDS ORDERED: OXYCODONE-ACETAMINOPHEN 5-325 MG TABLET PO PRN (11:04)
--- NOTE | 2020-08-30 11:24 | PDOC PROGRESS REPORT ---
Subjective Date:: 08/30/20 Subjective:: Patient is anxious today. Tachycardic after bath. c/o abd pain. O2 sats are good . Had bowel movement last night. Reason For Visit: ENCEPHALOPATHY,PNA Physical Exam Vital Signs: Temp Pulse Resp BP Pulse Ox 97.5 F 86 20 106/64 95 08/30/20 08:14 08/30/20 07:00 08/30/20 03:08 08/30/20 03:08 08/30/20 03:08 Pulse Oximeter Continuous Start: 08/23/20 16:15 Freq: RTQ4 Status: Hold Protocol: Document 08/24/20 01:15 DBE (Rec: 08/24/20 01:28 DBE [id number]) Pulse Oximetry Assessment Equipment Usage Equipment Standby Continuous SpO2 Machine # XX Additional RT Notes Other MONITORING ON NURSES MONITOR DUE A PT BEING COVID + 08/24/20 01:16 Respiratory Care Notes by SIRISHA SANDOVAL MONITORING ON NURSES MONITOR DUE A PT BEING COVID + Initialized on 08/24/20 01:16 - END OF NOTE Intake & Output 08/29/20 08/30/20 08/31/20 06:59 06:59 06:59 Intake Total 2300 2550 418 Output Total 1175 1250 Balance 1125 1300 418 Weight 98.4 kg 99.5 kg General appearance: PRESENT: no acute distress, cooperative Head exam: PRESENT: normocephalic Neck exam: ABSENT: JVD Respiratory exam: PRESENT: symmetrical, tachypnea - mild, unlabored. ABSENT: accessory muscle use, wheezes Cardiovascular exam: PRESENT: +S1, +S2, tachycardia. ABSENT: irregular rhythm GI/Abdominal exam: PRESENT: soft, tenderness. ABSENT: distended, firm, guard ing, rebound, rigid Neurological exam: PRESENT: alert, awake, oriented to person, oriented to place, oriented to time Psychiatric exam: PRESENT: anxious Results Laboratory Results: 08/29/20 04:09 08/29/20 04:09 08/26/20 08/30/20 15:15 04:26 Ferritin 373.00 H C-Reactive Protein 11.6 H CSF VDRL Non Reactive 08/26/20 15:15 Cerebral Spinal Fluid - Csf Gram Stain - Final 08/26/20 15:15 Cerebral Spinal Fluid - Csf CSF Culture - Final NO GROWTH 3 DAYS 08/23/20 08/23/20 08/28/20 12:11 12:11 14:30 Creatine Kinase 132 Troponin I < 0.012 < 0.012 08/28/20 20:15 Creatine Kinase Troponin I < 0.012 Impressions: Chest/Abdomen CTA 08/24/20 00:00 IMPRESSION: 1. Bilateral pneumonia. 2. No PE. Head MRI 08/25/20 00:00 IMPRESSION: Study limited by patient motion. No definite acute intracranial imaging findings. EVIDENCE OF ACUTE STROKE: NO. Lumbar Puncture 08/26/20 11:51 IMPRESSION: Lumbar puncture under fluoroscopy. No immediate complication. Chest X-Ray 08/27/20 06:00 IMPRESSION: STABLE APPEARANCE OF THE CHEST. Head CT 08/28/20 00:00 IMPRESSION: No acute or suspicious intracranial abnormality. EVIDENCE OF ACUTE STROKE: NO. Modified Barium Swallow 08/29/20 00:00 IMPRESSION: NO EVIDENCE OF PENETRATION OR ASPIRATION. PLEASE SEE SPEECH PATHOLOGIST REPORT FOR OTHER FINDINGS AND RECOMMENDATIONS. Assessment and Plan - Diagnosis (1) Acute metabolic encephalopathy Is this a current diagnosis for this admission?: Yes (2) Pneumonia due to COVID-19 virus Is this a current diagnosis for this admission?: Yes (3) Sinus bradycardia Is this a current diagnosis for this admission?: Yes (4) Acute respiratory failure with hypoxia Is this a current diagnosis for this admission?: Yes (5) Narcotic dependence Is this a current diagnosis for this admission?: Yes (6) Dysphagia Qualifiers: Dysphagia type: oropharyngeal phase Qualified Code(s): R13.12 - Dysphagia, oropharyngeal phase Is this a current diagnosis for this admission?: Yes (7) Small B-cell lymphoma Qualifiers: Lymphoma site: unspecified region Qualified Code(s): C83.00 - Small cell B- cell lymphoma, unspecified site Is this a current diagnosis for this admission?: Yes (8) Hypernatremia Is this a current diagnosis for this admission?: Yes (9) Rheumatoid arthritis Is this a current diagnosis for this admission?: Yes - Plan Summary Summary: Refer to summary - Time Time Spent with patient: 15-24 minutes Anticipated Discharge Disposition: HH vs SNF Anticipated Discharge Timeframe: n/a
[2020-08-30] MEDS ORDERED: NALOXONE HCL INJ/PF 0.4 MG/1 ML SDV ONE ×2 (11:30→11:36)
[2020-08-30] MEDS ORDERED: LORAZEPAM INJ 2 MG/1 ML VIAL IV ONE (12:00)
--- NOTE | 2020-08-30 13:02 | Death Summary ---
Summary Date : 08/30/20 Time of :: 11:59 Autopsy: Yes Resuscitation Status: Do Not Resuscitate - Final Diagnosis (1) Acute metabolic encephalopathy Is this a current diagnosis for this admission?: Yes (2) Pneumonia due to COVID-19 virus Is this a current diagnosis for this admission?: Yes (3) Sinus bradycardia Is this a current diagnosis for this admission?: Yes (4) Acute respiratory failure with hypoxia Is this a current diagnosis for this admission?: Yes (5) Narcotic dependence Is this a current diagnosis for this admission?: Yes (6) Dysphagia Is this a current diagnosis for this admission?: Yes (7) Small B-cell lymphoma Is this a current diagnosis for this admission?: Yes (8) Hypernatremia Is this a current diagnosis for this admission?: Yes (9) Rheumatoid arthritis Is this a current diagnosis for this admission?: Yes Hospital Course:: Patient admitted to the hospital for acute metabolic encephalopathy. On initial presentation, she was suspected to have toxic encephalopathy secondary to narcotic overuse. Family had reported that she takes oxycodone and xanax frequently. She was given Narcan and flumazenil in the ER with some response but subsequently had no subsequent response to the Narcan drip. She tested positive for COVID-19. She was treated for COVID-19 with pneumonia with hypoxic respiratory failure. Head CT and MRI were done earlier in admission which showed no evidence of a stroke or any other signs to explain her obtunded state. Lumbar puncture was unremarkable. Patient however remained altered for a few days. Acute encephalopathy was thought to be secondary to COVID-19 infection. After a few days, patient's mental status began to come around encephalopathy resolved. She was back to her baseline yesterday and even earlier this morning. Her hypoxia also started to improve and was down to room air today. However, later this morning, patient suffered a sudden event and became tachycardic in sinus rhythm, anxious, agitated and confused. She expressed that she felt like she was dying. Complained of pain around left hip. Received Morphine 2mg iv to help with pain. However, her mental state continued to decline rapidly. Oxygenation was still adeqaute in low 90s but empirically put on nasal cannula. Pupils very rapidly became blown bilaterally even before narcan x2. No response whatsoever to narcan. She became cold and clammy and tachypneic. Called daughter Sumi to inform her of today's developments. While on the phone, RN notified patient had become bradycardic and went into asystole. She was DNR/DNI status so resuscitation was not attempted. I went to assess patient. Patient at 11:59am. Patient's rapid decline occurred very acutely all within the span of less than an hour. The sequence of events are highly suspicious of a massive stroke as cause of . I have called patient's daughter Sumi and notified her. She requested autopsy but mobile paramedical examiner declined. I filled certificate.
[2020-08-30 15:36] LABS: ALPHA-1-GLOBULIN 1 6.9 % (1.1-6.6); ALPHA-2-GLOBULIN 8.2 % (3.0-12.6); CSF ALBUMIN 39.2 % (56.8-76.4); PRE ALBUMIN 13.3 % (2.2-7.1); TOTAL PROTEIN CSF PE 15.7 mg/dL (0.0-44.0)
[2020-08-31 07:45] LABS: CSF PE GAMMA GLOBULIN 12.2 % (3.0-13.0); PROT ELEC MSPIKE Not Observed % (Not Observ)
== END 2020-08-30 11:59 | DRG 177 ==
LOC: ER 12:07 → EH 16:14 → UNDOADMIN 19:36 → 3W 08-24 00:30 → EH 08-24 00:30
PROVIDERS: ADMIT Internal Medicine; ATTEND Internal Medicine
PROC: XW033E5 Introduction of Remdesivir Anti-infective into Peripheral Vein, Percutaneous Approach, New Technology Group 5 (ICD-10-PCS; 2020-08-24)
PROC: 009U3ZX Drainage of Spinal Canal, Percutaneous Approach, Diagnostic (ICD-10-PCS; principal; 2020-08-26)
PROC: B01BZZZ Fluoroscopy of Spinal Cord (ICD-10-PCS; 2020-08-26)
DX: U07.1 COVID-19 (principal); J12.82 Pneumonia due to coronavirus disease 2019; J96.01 Acute respiratory failure with hypoxia; G93.41 Metabolic encephalopathy; I63.9 Cerebral infarction, unspecified; C83.00 Small cell B-cell lymphoma, unspecified site; E87.0 Hyperosmolality and hypernatremia; D84.821 Immunodeficiency due to drugs; F11.20 Opioid dependence, uncomplicated; T45.1X5A Adverse effect of antineoplastic and immunosuppressive drugs, initial encounter; M06.9 Rheumatoid arthritis, unspecified; E78.5 Hyperlipidemia, unspecified; I25.10 Atherosclerotic heart disease of native coronary artery without angina pectoris; Z90.49 Acquired absence of other specified parts of digestive tract; Z96.652 Presence of left artificial knee joint; Z66 Do not resuscitate; F17.200 Nicotine dependence, unspecified, uncomplicated; Z79.82 Long term (current) use of aspirin; Z79.899 Other long term (current) drug therapy; R00.1 Bradycardia, unspecified; R13.12 Dysphagia, oropharyngeal phase; Z78.1 Physical restraint status; Z90.710 Acquired absence of both cervix and uterus
CPT/HCPCS: 0202U; 36415; 62328; 70450; 70553; 71045; 71275; 74230; 80048; 80053; 80307; 81001; 82140; 82550; 82728; 82803; 82945; 82962; 83605; 83735; 84100; 84157; 84166; 84484; 85025; 85027; 85379; 85610; 85730; 86140; 86592; 87040; 87070; 87205; 87210; 87252; 87290; 87529; 89050; 93005; 93010; 96365; 96366; 96368; 96375; 99285; A9576; J0131; J0456; J0692; J1100; J1650; J1885; J2060; J2270; J2310; J2543; J3370; J3480; J3490; J7030; J7040; J7050; J7060; S0028